=== PATIENT | male | born 1965 | race Caucasian/White ===

== ENCOUNTER 2024-09-09 14:07 | Inpatient (IN) | payer SELFPAY ==
[2024-09-09] VITALS (20 sets, daily range): BP systolic 99–153; BP diastolic 60–115; BMI 37.9
[2024-09-09 11:44] LABS: % Basophils 0.9 % (0-2); % Eosinophils 4.5 % (0-6); % Immature Granulocytes 0.4 % (0-0.5); % Lymphocytes 24.3 % (20.5-51.1); % Monocytes 7.2 % (1.7-9.3); % Neutrophils 62.7 % (42.2-75.2); Absolute Basophils 0.1 10^3/uL (0-0.2); Absolute Eosinophils 0.4 10^3/uL (0-0.7); Absolute Lymphocytes 1.9 10^3/uL (1.2-3.4); Absolute Monocytes 0.6 10^3/uL (0.1-0.6); Absolute Neutrophils 4.8 10^3/uL (1.4-6.5); Hematocrit 47.2 % (39.0-52.0); Hemoglobin 15.2 g/dL (13.0-18.0); Mean Corp Hgb Conc. 32.2 g/dL (33.0-37.0); Mean Corpuscular Hgb 28.5 pg (27.0-31.0); Mean Corpuscular Volume 88.6 fL (80.0-94.0); Mean Platelet Volume 11.1 fL (7.4-10.4); Nucleated Red Blood Cells % 0 % (-); Platelet Count 164 10^3/uL (130-400); Red Blood Cell Count 5.33 10^6/uL (4.70-6.10); Red Cell Dist. Width 13.7 % (11.5-14.5); White Blood Cell Count 7.7 10^3/uL (4.8-10.8)
[2024-09-09 11:50] LABS: ALT (SGPT) 26 U/L (0-50); AST (SGOT) 41 U/L (17-59); Albumin 4.1 g/dl (3.5-5.0); Alkaline Phosphatase 63 U/L (38-126); Blood Urea Nitrogen 16 mg/dl (9-20); Calcium 9.1 mg/dl (8.4-10.2); Carbon Dioxide 25 mmol/L (22-30); Chloride 102 mmol/L (98-107); Glucose 141 mg/dl (70-99); Potassium 4.4 mmol/L (3.5-5.1); Sodium 135 mmol/L (135-145); Total Bilirubin 1.5 mg/dl (0.2-1.3); Total Protein 6.2 g/dl (6.3-8.2); eGFR > 60.00
[2024-09-09 12:02] LABS: NT-proBNP 1830 pg/ml
--- NOTE | 2024-09-09 12:12 | ED.GENMED ---
History of Present Illness
General
Chief Complaint: Chest Pain
Source: patient
Time Seen by Provider: 09/09/24 12:12
Nursing documentation reviewed up to this point in time: agreed with
History of Present Illness
History of Present Illness:
59-year-old male presents emergency department due to chest pain with exertion. Ongoing for several months, but worse recently. He has not seen a learning and development administrator or sought medical care for this.
Past History
Past History
ED Past Medical History: Asthma, HTN and Psychiatric (Anxiety/depression)
ED Past Surgical History: Appendectomy, Orthopedic (left hand surgery) and Other (Hernia repair)
Social History
Tobacco: Non-smoker
Alcohol: Occasional
Drug: None
Personal:
Living: with family (Resides with his teenage son)
Employment: Employed
Family History
Family History: Hypertension and Other
Review of Systems
Review of Systems
Allergies reviewed?: Yes
All Other Systems: Not applicable
Constitutional: Reports no symptoms
EENT: Reports no symptoms
Respiratory: Reports trouble breathing
Cardiac: Reports chest pain
ABD/GI: Reports no symptoms
: Reports no symptoms
Musculoskeletal: Reports no symptoms
Skin: Reports no symptoms
Neurological: Reports no symptoms
Endocrine: Reports no symptoms
Hematologic/Lymphatic: Reports no symptoms
Psychiatric: Reports no symptoms
Phy Exam
Physical Exam
Physical Exam:
Physical Exam
General: no apparent distress, not acutely ill
Neck: supple. no meningeal signs. normal posterior pharynx
Heart: s1/s2 regular rate and rhythm, no murmur. equal radial
pulses.
HEENT: Pupils equal round reactive to light, EOMI
Lungs: no acute respiratory distress. clear bilaterally
Abdomen: normal bowel sounds. not tender. no CVAT
Neuro: alert and oriented. no focal neurological deficits cranial nerves II through XII intact
Skin: no rash
Psychiatric: well kept. interactive and cooperative
Extremities: Bilateral tibial edema. no calf tenderness. negative homans. good distal pulses
Scores
Heart Score for Chest Pain Patients
STEMI patient?: No
History: Highly Suspicious
ECG: Nonspecific Repolarization
Age: >45 - <65 years
Risk Factors: 1 or 2 Risk Factors
Troponin: >/= 3 x Normal Limit
Heart Score for Chest Pain Patients: 7
Heart Score Risk: 72.7 % MACE over next 6 weeks
Course
Orders/Labs/Results
Orders:
Orders
09/09/24 11:11
Electrocardiogram (*1) Urgent
Reason for Study: Chest Pain
EKG- Treatment ONCE
09/09/24 11:19
BNP [NT-proBNP] Urgent
Complete Blood Count/With Diff Urgent
Comprehensive Metabolic Panel Urgent
Troponin I Urgent
09/09/24 12:38
Aspirin Chewable [Low Strength Aspirin] 324 mg PO NOW STA
09/09/24 12:40
CR Chest Portable - 1 View Urgent
Comment:
Reason For Exam: chest pain
Reason Study Needs to be Portable: Patient Unstable
09/09/24 12:51
PTT Urgent
Comment: Obtain baseline before beginning heparin infusion if not already collected
Heparin 4,000 units IV NOW STA
Pharmacy Request to Place See Dose Instructions PO NOW STA
Discontinue all Active Warfarin orders?: Yes
Nursing to Place Non Medication Order As Directed
Physician Order: PTT 6 hours after initial start of Heparin infusion
09/09/24 13:00
Heparin 97894 Units/250 ml 25,000 units in 250 ml IV PER PROTOCOL
Weight to be used for heparin protocol in kilograms (kg):: 123.1
Protocol:: Cardiac Tx/Acute Coronary
PTT Goal Range to be used:: PTT 73 to 111 seconds
Order type:: Initial
INITIAL Infusion Dose (UNITS/KG/hr) & then follow protocol:: 15 units/kg/hr
Infusion Dose in UNITS/hr & then follow protocol (UNITS/hr):: 1,500
INFUSION RATE in mL/hr & then follow protocol (mL/hr):: 15
PTT less than or equal to 64 seconds:: Increase rate by 200 units/hr (+ 2 mL/hr)
PTT 64.1 to 72.9 seconds:: Increase rate by 100 units/hr (+ 1 mL/hr)
PTT 73 to 111 seconds:: Target Range. No change in rate.
PTT 111.1 to 130.9 seconds:: Decrease rate by 100 units/hr (- 1 mL/hr)
PTT 131 to 199.9 seconds:: HOLD for 1 hr. Then decrease rate by 200 units/hr (- 2 mL/hr)
PTT greater than or equal to 200 seconds:: HOLD for 2 hrs & Notify Provider. Then decrease by 200 units/hr (-
2 mL/hr)
Lab follow-up:: Each change, PTT q6h until 2 consecutive are therapeutic. Then PTT
daily.
Pharmacy Request to Place See Dose Instructions IV DIRECTED
Abnormal Lab Results
09/09/24
11:19
MCHC 32.2 L g/dL
(33.0-37.0)
MPV 11.1 H fL
(7.4-10.4)
Glucose 141 H mg/dl
(70-99)
Total Bilirubin 1.5 H mg/dl
(0.2-1.3)
Troponin I 1.460 H* ng/ml
Total Protein 6.2 L g/dl
(6.3-8.2)
09/09/24 11:19
09/09/24 11:19
Vital Signs
Initial and Last Documented VS:
Initial Vital Signs
Temp Pulse Resp BP Pulse Ox
98.3 F 106 20 139/101 98
09/09/24 11:05 09/09/24 11:05 09/09/24 11:05 09/09/24 11:05 09/09/24 11:05
Last Documented Vital Signs
Temp Pulse Resp BP Pulse Ox
98.3 F 106 24 136/115 96
09/09/24 11:05 09/09/24 12:23 09/09/24 12:23 09/09/24 12:23 09/09/24 12:31
MDM/Problems Addressed
Differential Diagnosis Includes:
NSTEMI, CHF
MDM/Problems Addressed:
59-year-old male with NSTEMI. Aspirin and heparin given. Discussed with Dr. Eliu Maldonado, who will see patient in ED. Admit to hospitalist.
Chronic conditions affecting care: HTN and Asthma
Acute Exacerbation and/or Progression of Chronic Illness: HTN
*Pulse Oximetry
Patient hypoxic: no
*EKG
Interpreted by ED Provider?: Yes
EKG Intrepretation Date: 09/09/24
EKG Intrepretation Time: 11:14
Interpretation: abnormal
*[employer] Fire Direction Specialist Interpretation
Rate: tachycardiac
Interpretation: abnormal
Heart Rate: 105
Rhythm: sinus tachycardia
*Critical Care Note
Total Time (30-74mins, 75-104mins- exclusive of procedures): 30
comment:
Critical care statement: A total of 30 minutes of critical care time was provided for this patient. This includes management of unstable vital signs, evaluation of the patient at bedside, reviewing the patient's pertinent medical records, discussion
with consultants, review of old EKGs and review of pertinent medical records. This time with separate from time utilized to perform the aforementioned documented procedures
Data Reviewed
Review of Other/Old Records Reveals: Testing (Echocardiogram 01/22/2018 LVEF 55 to 60%, trace tricuspid regurgitation, trace mitral regurgitation)
Source: records
Patient Management
Social determinants of health affecting care: Living situation and Financial situation
Discussion with other providers: Hospitalist and Extension Service Agent (cardiology)
Escalation/DeEscalation of care consider admission/obs:
admit indicated
ED Attending Note
-
Portions of this chart may have been created with voice recognition software.� Occasional wrong word or��sound alike� substitutions may have occurred due to the inherent limitations of voice recognition software.
Discharge Plan
Departure
Patient Disposition: Admit
Date of Disposition: 09/09/24
Time of Disposition: 12:54
Admit to: IVU
Presentation/result/management discussed w/ accepting MD/DO: Hospitalist
Patient with high blood pressure during this ER visit?: Yes
Condition: Fair
Discharge Problem:
Acute non-ST elevation myocardial infarction (NSTEMI)
Prescriptions:
No Action
No Current Medications
0
Interventions
Interventions:
*Risk Screen - Suicide Last Done: 09/09/24 11:05
*Neglect/Abuse Screening Last Done: 09/09/24 11:05
*ED- Fall Risk Assessment Last Done: 09/09/24 12:33
*ED COVID-19 Vaccine History Last Done: 09/09/24 11:05
ED- Cardiac Assessment Last Done: 09/09/24 12:24
Discharge Date and Time
Print Language: SERBIAN
[2024-09-09] MEDS: LOW STRENGTH ASPIRIN 324 MG PO (12:41)
[2024-09-09] MEDS: HEPARIN 4000 UNITS IV (12:59)
--- NOTE | 2024-09-09 13:04 | HPS.HSE ---
Family Physician
-
Family Physician: Anthony Mcqueen
Chief Complaint
-
Chest pressure x 6 months, bilateral leg edema times years
History of Present Illness
59-year-old male complaining of chest pain since April 6 months including dyspnea on exertion for the past month. He describes the pain as a sharp heavy pressure sitting on his chest. He reports he has gained 50 pounds since the fall he states
sometimes when he drinks a few ounces of red wine the pain goes away. He reports he is very stressed about being unemployed for such a long time he has been getting contracts here and there and then they have been subsiding. He is tearful during
exam. He was treated in the past for anxiety with Zoloft but he has not been on medications since 2013 due to no health insurance. He was seen by his PCP today and was telling him about his symptoms. He also reports that occurs on exertion and at
ret.he has had lower extremity edema since before 2013 with history of bilateral saphenous vein ablations. He has very strong family history of CAD mother father 2 sisters and brother heart attacks in their 50s and 60s. He was referred to the ER
for evaluation where he was found to have NSTEMI with troponin elevation of 1.460. Patient has past medical history of HTN, HLD, asthma, GERD, anxiety, impaired vision, class I obesity.
Medical History
Past Medical History
Past Medical History: Reports Other
Additional Past Medical History:
HTN
HLD
asthma
GERD
anxiety
impaired vision
Chronic bilateral leg edema
class I obesity
Past Surgical History: Reports Other
Additional Past Surgical History:
Left hand surgery
Deviated septum
Hernia repair
[place] teeth extraction
Vein surgery
Social History
Tobacco: Non-smoker
Alcohol: Daily (4 ounce wine daily)
Drug: None
Personal:
Living: With Family (Adult son lives with him)
Employment: Not Employed
Family History
Family History: CAD (Father, brother, sister, other sister other brother [place] 50 to 60s) and Other (1 brother history of [place] and Parkinson's mother from CVA after COVID-vaccine father age 97 [place])
Allergies / Home Medications
Allergies reflects when Allergies were last updated in [facility].
Home Medications with original date entered in [facility]
Allergy/Medication List:
Allergies
Allergy/AdvReac Type Severity Reaction Status Date / Time
Penicillins Allergy Unknown Verified 09/09/24 11:10
Home Medications
Advil PM 2 tab PO HS PRN isnsomnia 09/09/24
Benadryl 25 mg PO HS PRN insomnia 09/09/24
Review of Systems
-
History Source: Patient
A 12 point ROS was completed and negative except as noted: Yes
Constitutional: Reports Weight Gain (50 pounds the past 6 months); Denies Fever or Chills
EENT: Denies Sore Throat or Runny Nose
Respiratory: Denies Cough or Trouble Breathing
Cardiac: Reports Chest Pain; Denies Diaphoresis, Palpitations or Syncope
Abdomen/GI: Denies Abdominal Pain, Nausea, Vomiting, Diarrhea, Constipated or Bloody Stools
: Denies Dysuria, Frequency or Flank Pain
Musculoskeletal: Reports Edema (Bilateral nonpitting +3 edema lower legs); Denies Joint Pain
Skin: Denies Itching or Rash
Neurological: Denies Dizzy or Headache
Endocrine: Reports No Symptoms
Hematologic/Lymphatic: Reports No Symptoms
Psych: Reports Anxiety (Over no job, no healthcare)
Physical Exam
Vital Signs
Vital Signs
Temp Pulse Resp BP Pulse Ox
98.3 F 106 24 136/115 96
09/09/24 11:05 09/09/24 12:23 09/09/24 12:23 09/09/24 12:23 09/09/24 12:31
Physical Exam
General: Comfortable, Conversant and Pain (Chest pain 07/11); No Fever or Chills
HEENT: NormoCephalic, Anicteric, Moist mucous membranes, PERRLA, [place] Conjunctivae, No Ptosis and Neck Nontender
Respiratory: Clear; No Wheezes, Rales or Rhonchi
Cardiac: S1/S2, Regular Rhythm and Peripheral Edema (Bilateral +3 nonpitting); No Murmur, Rub or Gallop
Breast: Deferred by me
GI: Soft, Non Tender, Non Distended, Normal Bowel Sounds and No Hepatosplenomegaly
Rectal: Deferred by Provider
Genito-urinary: Deferred by me
Musculoskeletal: No Clubbing, No Cyanosis, Edema, Left Lower Extremity (+3 nonpitting) and Edema, Right Lower Extremity (+3 nonpitting); No Edema, Left Upper Extremity or Edema, Right Upper Extremity
Skin: Warm and Dry; No Rash or Jaundice
Neuro: AO x 3, No Motor Deficits, Nonfocal/grossly intact, Cranial Nerves Intact and No Sensory Deficits; No Slurred Speech, Facial Droop, Tremors or Sedated
Psych: Calm
Laboratory Results
-
09/09/24 11:19
09/09/24 11:19
Laboratory Results
Total Bilirubin 1.5 mg/dl (0.2-1.3) H 09/09/24 11:19
AST 41 U/L (17-59) 09/09/24 11:19
ALT 26 U/L (0-50) 09/09/24 11:19
Alkaline Phosphatase 63 U/L (38-126) 09/09/24 11:19
Troponin I 1.460 ng/ml H* 09/09/24 11:19
Data Reviewed
-
Diagnostic Radiology: Report Reviewed by me
Lab Data: Labs Reviewed by me
Impression/Plan
-
Impression/plan:
Admit to IVU
#NSTEMI
Troponin 1.460 will trend
-Consult [facility] cardiology
-IV heparin bolus plus drip
-Aspirin 324 mg given in ER, continue aspirin 81 mg daily
-N.p.o. for cardiac cath today
-2D echo
-Follow EKGs
-Lipid profile, HgbA1c
-Lasix 20 mg IV
-Follow CBC, CMP
-PT/OT/outsole caser consult
CXR:No radiographic evidence of acute cardiopulmonary abnormality.
Mild cardiomegaly.
#Hypertension�uncontrolled
BP 136/115
-Lasix 20 mg IV single dose now
#Acute on chronic anxiety
Reports used to take Zoloft back in 2013
-Major stressors loss of job, denies current suicidal ideation
-IV Ativan as needed
# HLD
-Check lipid profile
#GERD
-No current meds
#Asthma-no acute exacerbation
#Class I obesity�BMI 37.9
Affects all aspects of care
Weight loss recommended
#Insomnia
Patient is taking Benadryl 75 mg plus Advil PM 2 tablets 400/75 mg total dose every night
DVT prophylaxis
IV heparin drip
Full code
[2024-09-09] MEDS: HEPARIN 25000 UNITS/250 ML IV ×2 (13:20→21:28)
--- NOTE | 2024-09-09 13:49 | W.PN.UPDATE ---
Update Note
Progress Note Update
This is an addendum to the H&P written by Tigist Ayala on 09/09/2024. Patient seen and examined independently with FOOD CONCESSION MANAGER.
59-year-old male past medical history of chronic lower extremity swelling, hypertension, hyperlipidemia, GERD, anxiety, asthma, arthritis/lumbar disc disease, presenting with chest pain with exertion ongoing for several months at rest but worsening
over the past few days.
Chronic lower extremity edema for several years without improvement with bilateral venous ablations. Has gained significant weight.
Patient tachycardic heart rate of 106.
EKG shows sinus tachycardia with occasional PVCs, troponin of 1.46. Cardiac BNP of 1800. Chest x-ray shows cardiomegaly without acute process.
Presentation consistent with NSTEMI. Likely some element of diastolic heart failure.
Check A1c and lipid panel. Aspirin. Heparin drip. Cardiology consulted. NPO for likely cath today. Will give 20 IV Lasix. Ativan for anxiety.
[2024-09-09 13:52] LABS: APTT > 200 Sec (23.4-35.0)
[2024-09-09] MEDS: NITROSTAT (SUBLINGUAL) 0.4 MG SL (14:03)
--- NOTE | 2024-09-09 14:06 | CON.CAR ---
Consultation
Consultation Request
Date/Time Consultation Requested: 09/10/23
Date/Time Consultation Performed: 09/10/23 1330
Requesting Provider: Hospitalist
Performing Provider: Dr. Amador
Reason for Consultation: Chest discomfort abnormal troponin
Medical History
-
History of Present Illness:
59-year-old male with no prior cardiac history who presents with chest discomfort. Patient reports that he had exertional shortness of breath and exertional chest discomfort for months. Symptoms have become worse over the past month in particular
over the last couple weeks. He is now has noticed that when he just carries in some groceries that he will have shortness of breath and some chest tightness that we will start to feel like an elephant sitting on his chest and then will become more
intense and more sharp. Symptoms are relieved with rest. He sometimes just has to stop what he is doing and have his son carrying the rest of the groceries. Yesterday he had an episode of chest discomfort after exertion similar to what was
described above. He then states if he has a small glass of wine it will help it go away after about 5 minutes. He did not have any prolonged episodes. He called his PCP and was directed to go to the ER he eventually saw his primary care physician
today and again was directed to go to the emergency department. He had some chest discomfort on his walk into the emergency department which then improved while resting in the ER. He reports having some low-grade chest sensation currently while
sitting in bed no current complaints of shortness of breath. Denies having history of hypertension hypercholesterolemia or smoking. Family history is positive for coronary artery disease. ECG without acute ischemic changes first troponin 1.49
Past Medical History
Past Medical History: Other (Eczema)
Social History
Tobacco: Non-Smoker
Living: With Family (Lives with son)
Family History
Family History: CAD
Allergies / Home Medications
Allergy/AdvReac Type Severity Reaction Status Date / Time
Penicillins Allergy Unknown Verified 09/09/24 11:10
�Medication �Instructions �Recorded �Confirmed �Type
Advil PM 2 tab PO HS PRN isnsomnia 09/09/24 09/09/24 History
Benadryl 25 mg PO HS PRN insomnia 09/09/24 09/09/24 History
Review of Systems
-
All other systems: Negative unless noted
Physical Exam
Vital Signs
Temp Pulse Resp BP Pulse Ox
98.3 F 121 18 147/88 96
09/09/24 11:05 09/09/24 13:45 09/09/24 13:30 09/09/24 14:03 09/09/24 13:15
Lab Results
09/09/24 11:19
09/09/24 11:19
Troponin I 1.460 ng/ml H* 09/09/24 11:19
Mpo-S-Tmblswymwua Pept 1830 pg/ml 09/09/24 11:19
Physical Exam
General: Well Nourished
HEENT: Anicteric
Cardiac: Regular Rhythm
GI: Soft
Musculoskeletal: No Clubbing
Skin: Warm
Neuro: Alert
Hematologic/Lymphatic: No Lymphadenopathy
Impression / Plan
-
NSTEMI
-Aspirin
-Heparin
-Sublingual nitro
-IV nitro
-Recommend cardiac catheterization. Procedure reviewed with patient. He is in agreement.
.
Shortness of breath. Consistent with exertional angina
-Echo
.
Social history. Patient very concerned with cost. He says he is broke Will need case management consult
Data Reviewed
-
EKG: Report Reviewed by me
Radiology: Report Reviewed by me
Medical Tests (Nuc Med, Echo etc): Report Reviewed by me
Labs: Labs Reviewed by me
[2024-09-09] MEDS: LASIX 20 MG IV (14:08)
[2024-09-09] MEDS: NITROGLYCERIN PREMIX 250 IV (14:19)
[2024-09-09 15:07] LABS: HDL Cholesterol 45 mg/dl; LDL Cholesterol, Calculated 190 mg/dl; Magnesium 2.1 mg/dl (1.6-2.3); Total Cholesterol 276 mg/dl (50-199); Triglyceride 205 mg/dl (10-149); Very Low Density Lipoprotein 41 mg/dl (0-30)
--- NOTE | 2024-09-09 15:41 | ITS.CL.PN ---
Leg Breaker - Procedure Note
Procedure
Procedure Note:
CARDIAC CATHETERIZATION REPORT
Date of Procedure: 09/09/2024
Referring: Dr. Yao Amador MD
Indication: NSTEMI
PROCEDURE(S)
1. left heart catheterization
2. coronary angiography
ACCESS: 6F right radial artery (closure: radial band)
CATHETERS
1. 6F JR4
2. 6F JL3.5
MODERATE SEDATION: 40 minutes of moderate sedation was utilized. An independent director medical writing was present to assist with and help manage the patient's level of consciousness and physiologic status.
ULTRASOUND GUIDED VASCULAR ACCESS (right radial artery): Ultrasound was utilized for vascular access. The vessel was visualized under ultrasound and noted to be patent. An image of the vessel was stored permanently in the patient's medical record.
Under direct ultrasound guidance, vascular access was obtained using a modified Seldinger technique and a 6 Frisian sheath was placed.
HEMODYNAMIC DATA
LV 113/9 (EDP 13) mmHg
AO 109/84 (mean 93) mmHg
CORONARY ANGIOGRAPHY
Dominance: right
LM: 80% distal shaft focal stenosis.
LAD: Large vessel giving rise to a large branching D1 and wrapping around the apex. There are serial 40% stenoses in the mid vessel and a long 90% stenosis in the distal vessel. There is diffuse moderate disease throughout the lower branch of the
D1.
LCx: Moderate caliber vessel giving rise to a moderate caliber branching OM1, small LPL1, and moderate caliber LPL2. There is a 40% stenosis in the OM1 before the branch. There is otherwise mild non-obstructive disease.
RCA: Proximal MACHINE SNELLER. The RPDA fills via [id number] collaterals from the apical LAD.
RADIATION: dose 734 mGy; DAP 61.9 gy*cm2; fluoroscopy time 3.3 min
CONCLUSIONS
1. severe multivessel coronary artery disease as described with RCA MACHINE SNELLER and high-grade left main stenosis
2. mildly elevated LV filling pressure and no aortic stenosis
RECOMMENDATIONS
1. expectant management after cardiac catheterization via right radial approach
2. check TTE, lipids, A1c
3. CT surgery consult for coronary artery bypass grafting with PALACIO-LAD and additional grafts to the D1, OM1, and RPDA.
Signed: Rony Wallace MD, PhD
--- NOTE | 2024-09-09 16:40 | CM ---
Chart reviewed. Patient is currently unemployed, lives with his son in a [address], 3 [address], 0 DME. [employer] notified. Plan is for the patient to return home. CM to follow
--- NOTE | 2024-09-09 17:05 | CONSULT.CT ---
Consultation
-
Date/Time Consultation Requested: 09/09/24
Date/Time Consultation Performed: 09/09/24
Requesting Provider: Dalton Wallace
Performing Provider: Jazmin ESCOBAR/Levy Augustine MD
Reason for Consultation: NSTEMI/Left main, multivessel coronary artery disease
Patient History
Physicians
Family Physician: Anthony Mcqueen
Outpatient Price Economist: none prior to admission
Inpatient Price Economist: Dalton Wallace
History of Present Illness
59-year-old male with no prior cardiac history admitted to [facility] on 09/09/2024 with report of exertional chest pressure that has escalated in frequency and intensity since April 2024. Patient also developed shortness of
breath over the past month. Symptoms are relieved with rest and 'a little red wine.' Patient has been unemployed for the past 6 months and has gained 15 pounds during this time. He had not sought medical attention due to concern of cost. He is
quite upset about loss of income. Patient has a strong family history for coronary artery disease (father and siblings with [facility]). Ruled in for NSTEMI (first troponin 1.49). Patient was taken for left heart catheterization which reported
significant left main disease and occluded right coronary artery. He is currently pain-free resting in bed and will resume IV heparin and nitro later tonight.
Pertinent negatives: Denies CVA/TIA, hepatitis, chest radiation or surgery, dysphagia
Past Medical History
Past Medical History: Asthma (Childhood), GERD, HTN, Hypercholesterolemia, Psychiatric (Situational anxiety/depression over job loss) and Other (Left shoulder impingement, herniated lumbar disc, chronic bilateral lower extremity edema, colon polyps,
fracture proximal left fifth phalanx-repaired with screws)
Past Surgical History
Past Surgical History: Appendectomy and Other (Xanthoma removal under left eye, umbilical hernia repair, bilateral saphenous vein ablation)
Family History
Mother: Cause of (CVA)
Family Medical History: CAD
Social History
Alcohol: Occasional
Drug: None
Tobacco: Non-Smoker
Personal:
Living: With Family (Adult son age 23)
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
Allergies
Allergy/AdvReac Type Severity Reaction Status Date / Time
Penicillins Allergy Unknown Verified 09/09/24 11:10
Home Medications
�Medication �Instructions �Recorded �Confirmed �Type
acetaminophen 500 mg tablet 1,000 mg PO Q6HPRN PRN MILD PAIN 09/09/24 09/09/24 History
bisacodyl 5 mg tablet 5 mg PO HS 09/09/24 09/09/24 History
diphenhydramine HCl 25 mg capsule 25 mg PO HSPRN PRN ITCHING 09/09/24 09/09/24 History
(Benadryl)
ibuprofen 200 mg tablet (Advil) 600 mg PO Q6HPRN PRN HEADACHE 09/09/24 09/09/24 History
ibuprofen 200 mg-diphenhydramine 2 cap PO HSPRN PRN SLEEP 09/09/24 09/09/24 History
HCl 25 mg capsule (Advil PM
Liqui-Gels)
Review of Systems
-
History Source: Patient
General: Reports Weight Gain (15 pound weight gain in past 3 months)
HEENT: Reports Other (Wears corrective lenses)
Respiratory: Reports SOB (With exertion)
Cardiac: Reports Chest Pain (With exertion) and Edema (Chronic bilateral lower extremity edema)
Abdomen/GI: Reports Reflux
: Reports No Symptoms
Musculoskeletal: Reports Myalgias
Skin: Reports No Symptoms
Neurological: Reports No Symptoms
Vascular: Reports No Symptoms
Physical Exam
Vital Signs
Temp 98.6 F 09/09/24 16:23
Temp route: Oral 09/09/24 16:23
Pulse 113 09/09/24 14:08
Resp Rate 18 09/09/24 16:23
Blood pressure 147/88 09/09/24 14:08
Blood pressure extremity used: Left upper arm 09/09/24 16:23
Position: Lying 09/09/24 16:23
MAP (cuff-Tj Monitor) 107 09/09/24 13:00
SaO2 94 09/09/24 16:23
Oxygen Mode of Delivery Room air 09/09/24 16:23
Acceptable pain level during hospitalization? 1 09/09/24 11:05
Can the patient verbally communicate their pain? Yes 09/09/24 14:03
Pain scale ratin 09/09/24 14:03
Actual Weight 123.1 kg 09/09/24 12:22
Body Mass Index (BMI) 37.9 09/09/24 12:22
Labs
09/09/24 11:19
09/09/24 11:19
APTT > 200 Sec (23.4-35.0) H* 09/09/24 13:09
Troponin I 1.460 ng/ml H* 09/09/24 11:19
Exn-S-Tgzizajdmov Pept 1830 pg/ml 09/09/24 11:19
Diagnostic Studies
Left heart catheterization via right radial artery access (09/09/[address] Brewer):
LM: 80% distal shaft focal stenosis.
LAD: Large vessel giving rise to a large branching D1 and wrapping around the apex. There are serial 40% stenoses in the mid vessel and a long 90% stenosis in the distal vessel. There is diffuse moderate disease throughout the lower branch of the
D1.
LCx: Moderate caliber vessel giving rise to a moderate caliber branching OM1, small LPL1, and moderate caliber LPL2. There is a 40% stenosis in the OM1 before the branch. There is otherwise mild non-obstructive disease.
RCA: Proximal SYSTEMS INTEGRATION MANAGER. The RPDA fills via cpxo-wg-[id number] collaterals from the apical LAD.
Exam
General: Well Nourished and Comfortable
HEENT: Normocephalic, Anicteric, Moist Mucous Membranes, Atraumatic and PERRLA
Respiratory: Clear
Cardiac: S1/S2, Regular Rhythm and Gallop
GI: Soft, Non Tender and Normal Bowel Sounds
Skin: Warm and Dry
Neuro: AO x 3, No Motor Deficits and Nonfocal/Grossly Intact
Extremities: Lower Level Edema (B/L +1-2 ankle edema) and Pulses (+2/4 B/L DP pulses)
Lymph: No Lymphadenopathy
Psych: Other (tearful)
Assessment / Plan
-
59-year-old male admitted with escalating frequency of exertional chest pain shortness of breath. Ruled in for NSTEMI and found to have left main/triple-vessel coronary disease
- IV heparin and nitroglycerin to be resumed per cardiology
- Surgeon to review imaging and discuss risk-benefit of CABG with patient
-Will need echocardiogram to assess LVEF
-Will need social work consult to assist with medical finances
- Beginning preop diagnostic workup
Data Reviewed
-
EKG: Report Reviewed by me and Discussed with Physician
Epic Application Coordinator: Report Reviewed by me and Discussed with Physician
Radiology: Report Reviewed by me and Discussed with Physician
Labs: Labs Reviewed by me and Discussed with Physician
[2024-09-09] MEDS: LIPITOR 80 MG PO (17:29)
--- NOTE | 2024-09-09 18:00 | PTCARENOTE ---
Pt received post cath at 1615. Right rad band intact and site WNL. Pt denies any chest pain or sob. Room air sat 98%. IV Nitro infusing at 5MCG. Pt c/o of headache, medicated with Tylenol 650mg po as ordered.
[2024-09-09 18:09] LABS: TSH Reflex To Free T4 1.12 uIU/ml (0.47-4.68)
[2024-09-09] MEDS: TYLENOL 650 MG PO ×2 (19:06→23:38)
[2024-09-09 19:42] LABS: Urine Albumin Negative (Neg - Trace); Urine Bilirubin Negative (Negative); Urine Character Clear (Clear); Urine Color Yellow; Urine Glucose Negative (Negative); Urine Ketone Negative (Negative); Urine Leukocyte Negative (Negative); Urine Nitrite Negative (Negative); Urine Occult Blood Negative (Negative); Urine Urobilinogen Negative (Neg - 1+)
[2024-09-09 20:57] LABS: APTT 25.1 Sec (23.4-35.0)
[2024-09-09] MEDS: MELATONIN 5 MG PO (21:27)
[2024-09-09] MEDS: ATIVAN 1 MG IV (21:28)
[2024-09-09] MEDS: NSS (PRESERVATIVE FREE) 0.5 ML IV (21:37)
--- NOTE | 2024-09-09 21:55 | PTCARENOTE ---
Received patient at change of shift. A&Ox3. Sinus Tach 100s-110s-- other vitals stable. Right radial site clean, dry and intact. R-band removed. Nitro gtt 5 mL/hr and heparin gtt running @ 1500 units/hr through right AC. Condom cath removed per
patient request. Very difficult too remove-- patient was very unhappy. Used adhesive remover, warm washcloth, scissors to cut hair. Apologized to patient, and he was very understanding. Discussed plan of care for rest of evening. Verbalized
understanding. Call townsend within reach.
[2024-09-09] MEDS: LOPRESSOR 12.5 MG PO (23:39)
[2024-09-10] VITALS (34 sets, daily range): BP systolic 100–152; BP diastolic 63–109; BMI 36.8
[2024-09-10] MEDS: ROXICODONE 2.5 MG PO ×3 (03:23→17:45)
[2024-09-10 03:30] LABS: Hematocrit 39.5 % (39.0-52.0); Hemoglobin 13.1 g/dL (13.0-18.0); Mean Corp Hgb Conc. 33.2 g/dL (33.0-37.0); Mean Corpuscular Hgb 28.7 pg (27.0-31.0); Mean Corpuscular Volume 86.6 fL (80.0-94.0); Mean Platelet Volume 11.5 fL (7.4-10.4); Platelet Count 147 10^3/uL (130-400); Red Blood Cell Count 4.56 10^6/uL (4.70-6.10); Red Cell Dist. Width 13.7 % (11.5-14.5); White Blood Cell Count 7.3 10^3/uL (4.8-10.8)
[2024-09-10 03:41] LABS: APTT 55.8 Sec (23.4-35.0)
[2024-09-10 04:04] LABS: ALT (SGPT) 20 U/L (0-50); AST (SGOT) 28 U/L (17-59); Albumin 3.1 g/dl (3.5-5.0); Alkaline Phosphatase 53 U/L (38-126); Blood Urea Nitrogen 16 mg/dl (9-20); Calcium 8.6 mg/dl (8.4-10.2); Carbon Dioxide 24 mmol/L (22-30); Chloride 104 mmol/L (98-107); Estimated Creatinine Clearance 115 ml/min; Glucose 130 mg/dl (70-99); Magnesium 2.2 mg/dl (1.6-2.3); Potassium 3.9 mmol/L (3.5-5.1); Sodium 133 mmol/L (135-145); Total Protein 4.9 g/dl (6.3-8.2); eGFR > 60.00
--- NOTE | 2024-09-10 04:08 | PTCARENOTE ---
Pt c/o feeling SOB. Informed BOUBACAR Ta PA, and she came down to assess. Pt was placed on 2L O2, and prescribed Roxicodone for pain-- see AUG.
[2024-09-10 04:48] LABS: Hepatitis C Antibody Negative (Negative); Vitamin B12 300 pg/ml (239-931)
[2024-09-10] MEDS: LOW STRENGTH ASPIRIN 81 MG PO (07:48)
[2024-09-10] MEDS: LOPRESSOR 12.5 MG PO ×2 (07:48→19:44)
[2024-09-10] MEDS: TYLENOL 650 MG PO ×3 (07:57→19:45)
--- NOTE | 2024-09-10 09:06 | W.PN.CD ---
Today's Communication / Plan
-
check ECG
continue nitro gtt
await CT surgical plan
continue heparin ggt
continue intensive monitoring
Impression / Plan
-
NSTEMI
-Trop peak 2.080
-Cath with 80% LMCA and RCA AUTOMOBILE BRAKE BONDER, await CT surgery input for Inpt CAB.
-Continue asa/statin/bb
-continue IV heparin with intensive monitoring of labs
-echo today
Hyperlipidemia: LDL 190, likely familial?
-high dose statin
Morbid obesity: will need weight loss
Social history. Patient very concerned with cost. He says he is broke, lost his job and has no insurance. CM involved.
High risk situation with NSTEMI and left main Cor disease, mvd.
Subjective:
He has all over body pain, ntg gtt incresed for cp but this is resolved. He has a headache, did receive tylenol
Data:
Cath 08/13/24:
HEMODYNAMIC DATA
LV 113/9 (EDP 13) mmHg
AO 109/84 (mean 93) mmHg
CORONARY ANGIOGRAPHY
Dominance: right
LM: 80% distal shaft focal stenosis.
LAD: Large vessel giving rise to a large branching D1 and wrapping around the apex. There are serial 40% stenoses in the mid vessel and a long 90% stenosis in the distal vessel. There is diffuse moderate disease throughout the lower branch of the
D1.
LCx: Moderate caliber vessel giving rise to a moderate caliber branching OM1, small LPL1, and moderate caliber LPL2. There is a 40% stenosis in the OM1 before the branch. There is otherwise mild non-obstructive disease.
RCA: Proximal AUTOMOBILE BRAKE BONDER. The RPDA fills via [id number]-pi-[id number] collaterals from the apical LAD.
CONCLUSIONS
1. severe multivessel coronary artery disease as described with RCA AUTOMOBILE BRAKE BONDER and high-grade left main stenosis
2. mildly elevated LV filling pressure and no aortic stenosis
Physical Exam
Vital Signs/Labs
Vital Signs
Temp Pulse Resp BP Pulse Ox
98.3 F 89 18 103/65 95
09/10/24 07:55 09/10/24 02:54 09/10/24 07:55 09/10/24 02:54 09/10/24 07:55
09/09/24 09/10/24 09/11/24
06:59 06:59 06:59
Actual Weight 119.7 kg
09/10/24 03:05
09/10/24 03:05
APTT 55.8 Sec (23.4-35.0) H 09/10/24 03:05
Magnesium 2.2 mg/dl (1.6-2.3) 09/10/24 03:05
Triglycerides 205 mg/dl (10-149) H 09/09/24 11:19
LDL Cholesterol, Calc 190 mg/dl 09/09/24 11:19
VLDL Cholesterol, Calc 41 mg/dl (0-30) H 09/09/24 11:19
HDL Cholesterol 45 mg/dl 09/09/24 11:19
09/09/24
11:19
Eql-C-Owwcrqgjdou Pept 1830
LAB Results
09/09/24 09/09/24 09/09/24
11:19 14:30 20:38
Troponin I 1.460 H* Cancelled 2.080 H*
09/10/24
03:05
Troponin I 2.060 H*
Physical Exam
Constitutional: No acute distress
Cardiovascular: Rhythm & rate is regular, Pedal edema is absent, JVD pressure is normal, Systolic murmur absent and Diastolic murmur absent
Respiratory: Respiratory effort normal, Lungs clear to auscul., Wheeze Absent, Crackles Absent and Rhonchi Absent
Neuro/Psych: AO x 3
Data Reviewed
-
Date of Service: September 10, 2024
Medical Decision Making: Review of Case with other Provider (Review with CTNP, await CT surgical full evaluation, nurse Yane at the bedside)
[2024-09-10 09:21] LABS: Glycohemoglobin (HgbA1c) 6.3 % (4.0-5.6)
[2024-09-10 11:05] LABS: APTT 66.6 Sec (23.4-35.0)
--- NOTE | 2024-09-10 11:55 | W.PN.HOSP.TC ---
Today's Communication/Plan
-
further mgmt as per card and CTS
Assessment / Plan
Assessment / Plan
59yo M with PMHX of DJD came with chest discomfort, managed for NSTEMI, had cardiac cath on 09/09/24 with severe multivessel coronary artery disease as described with RCA HYSTER MACHINE OPERATOR and high-grade left main stenosis, recommended for CABG
A/P
#chest pain 2/2 NSTEMI
ASA, heparin drip, nitro drip
s/p cath on 09/09/24 - recommended for CABG, CTS to follow
Echo with EF 32%, grade 2 diastolic dysfunction, mild biventricular dilation and mild pulmonary HTN
TSH WNL
CT chest with cardiomegaly, no signs of pneumonia
#HLD
LDL 190
concern for familial
high dose statin
#Obesity
BMI 36.8
Advise to decrease calorie intake
#PreDM
HgbA1c 6.3%
Low carb diet and weight loss advised
#Social problem
has no medical coverage
CM consult
DVT ppx on SCDs
Fukll code
I have spent at least 36min reviewing chart, test results, communication with consultants and direct patient care
Anticipated Discharge: > 48 hours
Subjective/Interval History
-
Date of Service: September 10, 2024
Objective Data
-
Labs:
Laboratory Results
09/10/24 09/10/24
03:05 10:39
WBC 7.3
Hgb 13.1
Hct 39.5
Plt Count 147
APTT 55.8 H 66.6 H
Sodium 133 L
Potassium 3.9
Chloride 104
Carbon Dioxide 24
BUN 16
Creatinine 0.9
Glucose 130 H
Calcium 8.6
Total Bilirubin 1.0
AST 28
ALT 20
Alkaline Phosphatase 53
Vital Signs:
Vital Signs
Temp Pulse Resp BP Pulse Ox
98.3 F 93 18 120/89 95
09/10/24 07:55 09/10/24 10:45 09/10/24 07:55 09/10/24 10:42 09/10/24 07:55
I&O
09/09/24 09/10/24 09/11/24
06:59 06:59 06:59
Output Total 800 / 800
Balance -800 / -800
Review of Systems
-
History Source: Patient
All other systems: Reviewed and negative
Physical Exam
-
General: No Apparent Distress
HEENT: Normocephalic
Respiratory: Clear to Auscultation
GI: Soft, Nontender, Nondistended and Normal Bowel Sounds
Musculoskeletal: No Clubbing, No Cyanosis and No Edema
Neuro: Awake, Alert, Oriented and AO x 3
Psych: Calm
[2024-09-10] MEDS: HEPARIN 25000 UNITS/250 ML IV (13:39)
--- NOTE | 2024-09-10 14:21 | W.PN.UPDATE ---
Update Note
Progress Note Update
CARDIAC SURGERY ATTENDING:
I had a long discussion with Mr. Fletcher Sims at his bedside this afternoon. His son was present during our discussions. We reviewed his coronary pathology and discussed the proposed operative interventions. We reviewed the
periprocedural risks (including, but not limited to, , stroke, MN, arrhythmia, PNA, SERENA/F, bleeding, and infection) and discussed the expected in-hospital postprocedural course. We also reviewed the expected outpatient surgical recovery. All
questions were answered to the best of my abilities. The patient is agreeable to proceed. I have tentatively scheduled him for operative intervention tomorrow 09/11/2024. I plan TRE to LAD, left radial artery to OM1 upper branch, greater
saphenous vein to D1, and potential greater saphenous vein to RPDA (will require intraoperative assessment). I have personally reviewed all of his preoperative studies. His LVEF is reduced at approximately 30% and his RV is enlarged with normal
function. He has no significant valvular heart disease. Despite his reported history of bilateral greater saphenous vein ablations, on vein mapping, his greater saphenous veins appear usable bilaterally. If his greater saphenous veins appear
different operatively then as described on vein mapping, we will proceed with CABG x 2 with grafts to his LAD and OM1.
Thank you for the opportunity participate in the care of this kind gentleman.
Please call with any questions or concerns.
Levy Augustine MD
[phone]
--- NOTE | 2024-09-10 14:57 | CM ---
spoke to pt and son in room, he is prev indep, lives in a townhouse with his 23 yr old son. he does not have any health insurance, [facility] was notified. unsure if pt will qualify D/T over income. he tells me he has a 1099 he filed last yr. we
discussed preop CABG teaching including sternal and driving restrictions. pts son is very supportive. he has the cabg educ book. cm role explained and all questions answered.
--- NOTE | 2024-09-10 15:32 | W.PN.UPDATE ---
Update Note
Progress Note Update
STS RISK SCORE
Procedure Type:�Isolated CABG
Perioperative Outcome Estimate %
Operative Mortality 1.44%
Morbidity & Mortality 8.09%
Stroke 0.925%
Renal Failure 1.69%
Reoperation 2.52%
Prolonged Ventilation 4.84%
Deep Sternal Wound Infection 0.222%
Long Hospital Stay (>14 days) 3.46%
Short Hospital Stay (<6 days)* 48.8%
Clinical Summary
Planned Surgery: Isolated CABG, Urgent, First cardiovascular surgery
Demographics: 59 year old, White, male, 123kg, 180cm, BMI: 38 kg/m�
Lab Values: Creatinine: 0.9 mg/dL, Hematocrit: 39.5%, WBC Count: 7.3 10�/�L, Platelet Count: 157620 cells/�L
Substance Abuse: Never smoker, Alcohol use: 2-7 drinks/week
Risk Factors / Comorbidities: Hypertension, Family Hx of CAD
Cardiac Status: Acute heart failure, NYHA Class II, Ejection Fraction = 32%
Coronary Artery Disease: 3 vessels diseased, Non-ST Elevation ND, ND: 1 to 7 Days
Valve Disease: Mild MR, Trivial/Trace TR
[2024-09-10 16:08] LABS: PT 14.7 Sec (11.4-14.6)
[2024-09-10] MEDS: LIPITOR 80 MG PO (17:38)
--- NOTE | 2024-09-10 18:00 | PTCARENOTE ---
Pt received this am on IV heparin and Nitro as ordered. Room air sat 98%. Pt using O2 at @LNC as needed for chest and arm pain. IV ashutosh increased to 20mcg but 1745. No c/o of a headache at this time. Pt for CT surgery tomorrow as scheduled.
[2024-09-10] MEDS: MORPHINE SULFATE 2 MG IV (21:33)
[2024-09-10] MEDS: ROXICODONE 10 MG PO (22:39)
[2024-09-10] MEDS: MELATONIN 5 MG PO (22:39)
[2024-09-11] VITALS (10 sets, daily range): BP systolic 98–133; BP diastolic 56–85; BMI 37.1
--- NOTE | 2024-09-11 01:02 | PTCARENOTE ---
Received patient at change of shift. A&Ox3 with son and friend bedside. Vitals stable on 2L NC. Nitro gtt running @ 20 mcg/hr and heparin gtt running @ 1800 units/hr through right AC. Pt c/o general discomfort-- gave Tylenol-- see AUG. Right radial
site clean, dry, and intact. Discussed plan of care for evening. Patient verbalized understanding. Call townsend within reach.
--- NOTE | 2024-09-11 01:05 | PTCARENOTE ---
Addendum entered by Yesika Bell RN 09/11/24 01:15:
Pt refuses to keep BP cuff on despite education of the risks with the nitro gtt.
Addendum entered by Yesika Bell RN 09/11/24 01:14:
Nitro gtt increased to 50 mcg per BOUBACAR Ta to help with shoulder discomfort. Will monitor BP. Patient instructed to leave cuff on to be able to monitor.
Addendum entered by Yesika Bell RN 09/11/24 01:11:
Shoulder pain continued. Prescribed Roxicodone-- see MAR. Wrapped more warm blankets around shoulders.
Addendum entered by Yesika Bell RN 09/11/24 01:09:
Pt continued c/o shoulder pain. Stated it was 'not muscular but skeletal feeling.' Stated 'if you would just let me take a shower like I want, I'm sure it will help.' RN educated patient on the dangers of showering given his current chest pain,
morphine, blockages, etc. Pt verbalized understanding.
Addendum entered by Yesika Bell RN 09/11/24 01:07:
Pt continuing to c/o of shoulder pain. Informed BOUBACAR Ta-- assessed patient. Prescribed morphine-- given-- see MAR. EKG completed-- no change to previous EKG. Pt instructed to return to bed, O2 applied, and instructed to leave BP cuff
on.
Original Note:
Pt c/o shoulder pain bilaterally 'in the joint where the bone meets the shoulder.' Pt denies chest pain. Unable to give additional pain meds at this time. Applied warm blanket to shoulders and encouraged patient to sit in chair for a bit instead of
the bed.
--- NOTE | 2024-09-11 01:12 | PTCARENOTE ---
CV prep completed for the evening. Pt was shaved, washed with HCG soap, sheets and gown changed. Discussed plan for the morning. Patient verbalized understanding. Call townsend within reach.
[2024-09-11] MEDS: TYLENOL 650 MG PO (03:10)
[2024-09-11] MEDS: HEPARIN 25000 UNITS/250 ML IV (03:15)
[2024-09-11 04:44] LABS: APTT 75.7 Sec (23.4-35.0)
[2024-09-11 04:51] LABS: % Basophils 0.6 % (0-2); % Eosinophils 3.5 % (0-6); % Immature Granulocytes 0.5 % (0-0.5); % Lymphocytes 20.8 % (20.5-51.1); % Monocytes 8.4 % (1.7-9.3); % Neutrophils 66.2 % (42.2-75.2); Absolute Basophils 0.1 10^3/uL (0-0.2); Absolute Eosinophils 0.3 10^3/uL (0-0.7); Absolute Immature Granulocytes 0.1 10^3/uL (0-0.05); Absolute Monocytes 0.8 10^3/uL (0.1-0.6); Absolute Neutrophils 6.3 10^3/uL (1.4-6.5); Hematocrit 38.6 % (39.0-52.0); Hemoglobin 12.6 g/dL (13.0-18.0); Mean Corp Hgb Conc. 32.6 g/dL (33.0-37.0); Mean Corpuscular Hgb 28.9 pg (27.0-31.0); Mean Corpuscular Volume 88.5 fL (80.0-94.0); Mean Platelet Volume 11.9 fL (7.4-10.4); Nucleated Red Blood Cells % 0 % (-); Platelet Count 145 10^3/uL (130-400); Red Blood Cell Count 4.36 10^6/uL (4.70-6.10); Red Cell Dist. Width 13.6 % (11.5-14.5); White Blood Cell Count 9.6 10^3/uL (4.8-10.8)
[2024-09-11 04:58] LABS: ALT (SGPT) 17 U/L (0-50); AST (SGOT) 19 U/L (17-59); Albumin 3.2 g/dl (3.5-5.0); Alkaline Phosphatase 60 U/L (38-126); Blood Urea Nitrogen 15 mg/dl (9-20); Calcium 8.9 mg/dl (8.4-10.2); Carbon Dioxide 26 mmol/L (22-30); Chloride 102 mmol/L (98-107); Estimated Creatinine Clearance 115 ml/min; Glucose 142 mg/dl (70-99); Potassium 4.1 mmol/L (3.5-5.1); Sodium 133 mmol/L (135-145); Total Bilirubin 1.1 mg/dl (0.2-1.3); Total Protein 5.1 g/dl (6.3-8.2); eGFR > 60.00
[2024-09-11] MEDS: MAGNESIUM OXIDE 500 MG PO (05:58)
[2024-09-11] MEDS: PROTONIX 40 MG PO (05:58)
[2024-09-11] MEDS: BACTROBAN 2% OINTMENT 1 APPLIC NASAL ×2 (05:58→19:41)
[2024-09-11] MEDS: LOPRESSOR 25 MG PO (05:58)
--- NOTE | 2024-09-11 06:23 | PTCARENOTE ---
Pt HCG wipes, new leads placed, preop meds given-- see AUG. Bed switched. Son is bedside. Discussed plan for son. Heparin gtt and nitro gtt staying on to CV OR per BOUBACAR Ta.
[2024-09-11 07:47] LABS: Urine Albumin 1+ (Neg - Trace); Urine Bilirubin Negative (Negative); Urine Character Clear (Clear); Urine Color Yellow; Urine Glucose Negative (Negative); Urine Ketone Negative (Negative); Urine Leukocyte Negative (Negative); Urine Nitrite Negative (Negative); Urine Occult Blood Negative (Negative); Urine Specific Gravity 1.025 (<1.030); Urine Urobilinogen Negative (Neg - 1+)
--- NOTE | 2024-09-11 07:56 | W.PN.CD ---
Today's Communication / Plan
-
OR today
Impression / Plan
-
NSTEMI
-Trop peak 2.080
-Cath with 80% LMCA and RCA TOOL GRINDING MACHINE OPERATOR, pending CABG today
-Continue asa/statin/bb
-continue IV heparin with intensive monitoring of labs
-echo with EF 32, dilated chambers
-multiple discussions with CT surgery (Dr. Augustine) regarding revascularization approach in setting of possible non-viable GSVs (reported history of vein stripping); fortunately vein appeared viable on ultrasound; if unable to harvest will plan on 2v
CABG (PALACIO-LAD, rad-OM)
Acute on chronic systolic heart failure secondary to ischemic cardiomyopathy
HFrEF with moderately reduced ejection fraction
-post CABG should be initiated on GDMT with attention paid to cost (BB, TAYLOR/ARB, MRA at maximally tolerarted doses should be first line)
-will need repeat TTE in 3 months to determine candidacy for ICD
-no need for lasix, examines euvolemic and LVEDP 13 on cath
Hyperlipidemia: LDL 190, likely familial?
-high dose statin and ezetimibe
-eventual goal <55, may require other agents
Morbid obesity: will need weight loss; GLP1ra would be idea but will be challenging given lack of insurance
Social history. Patient very concerned with cost. He says he is broke, lost his job and has no insurance. CM involved.
High risk situation with NSTEMI and left main Cor disease, mvd.
Subjective:
to CVOR today for CABG
Data:
Cath 08/13/24:
HEMODYNAMIC DATA
LV 113/9 (EDP 13) mmHg
AO 109/84 (mean 93) mmHg
CORONARY ANGIOGRAPHY
Dominance: right
LM: 80% distal shaft focal stenosis.
LAD: Large vessel giving rise to a large branching D1 and wrapping around the apex. There are serial 40% stenoses in the mid vessel and a long 90% stenosis in the distal vessel. There is diffuse moderate disease throughout the lower branch of the
D1.
LCx: Moderate caliber vessel giving rise to a moderate caliber branching OM1, small LPL1, and moderate caliber LPL2. There is a 40% stenosis in the OM1 before the branch. There is otherwise mild non-obstructive disease.
RCA: Proximal TOOL GRINDING MACHINE OPERATOR. The RPDA fills via [id number]-uf-lqdmf collaterals from the apical LAD.
CONCLUSIONS
1. severe multivessel coronary artery disease as described with RCA TOOL GRINDING MACHINE OPERATOR and high-grade left main stenosis
2. mildly elevated LV filling pressure and no aortic stenosis
TTE 09/10/24
Mild biventricular dilation with Moderately reduced left ventricular systolic
function.
Left ventricular ejection fraction is 32% by volumetric assessment.
Moral right ventricular systolic function.
Stage II diastolic dysfunction suggestive of abnormal relaxation and increased
filling pressures.
No significant valvular disease.
Mild pulmonary hypertension.
Compared to the prior echo on 01/18/2018, systolic dysfunction is new, the
ventricles are now dilated, and mild pulmonary hypertension is now seen.
Physical Exam
Vital Signs/Labs
Vital Signs
Temp Pulse Resp BP Pulse Ox
36.8 C 93 18 133/82 97
09/10/24 20:33 09/11/24 05:58 09/10/24 20:33 09/11/24 05:58 09/10/24 20:33
09/10/24 09/11/24 09/12/24
06:59 06:59 06:59
Actual Weight 119.7 kg 120.5 kg
09/11/24 03:30
09/11/24 03:30
PT 14.7 Sec (11.4-14.6) H 09/10/24 15:48
INR 1.10 09/10/24 15:48
APTT 75.7 Sec (23.4-35.0) H 09/11/24 03:30
Magnesium 2.2 mg/dl (1.6-2.3) 09/10/24 03:05
Triglycerides 205 mg/dl (10-149) H 09/09/24 11:19
LDL Cholesterol, Calc 190 mg/dl 09/09/24 11:19
VLDL Cholesterol, Calc 41 mg/dl (0-30) H 09/09/24 11:19
HDL Cholesterol 45 mg/dl 09/09/24 11:19
09/09/24
11:19
Ryy-K-Pbaggzrcrtg Pept 1830
LAB Results
09/09/24 09/09/24 09/09/24
11: 14:30 20:38
Troponin I 1.460 H* Cancelled 2.080 H*
09/10/24
03:05
Troponin I 2.060 H*
Data Reviewed
-
Date of Service: September 11, 2024
Medical Decision Making: Reviewed Test Results
EKG: Tracing Personally Visualized and interpreted
Echo: Tracing Personally Visualized and interpreted
X-Ray/CT/US/MRI/NUC/PET: Image Personally Visualized and interpreted
Medical Tests (PFT, Pathology etc): Image Personally Visualized and interpreted
Labs: Labs Reviewed by me
[2024-09-11 08:08] LABS: ACT+ - POC 156 Seconds (82-134)
[2024-09-11 08:23] LABS: Urine Mucus Moderate; Urine Squamous Cell 0-2 /LPF (Few)
[2024-09-11 08:24] LABS: Urine Bacteria Few (Negative); Urine Red Blood Cell 0-2 /HPF (0-2); Urine White Cell 0-2 /HPF (0-5)
[2024-09-11 08:56] LABS: B.E. - POC 2.9 mmol/L; Glucose - POC 188 mg/dl (70-99); HCO3 - POC 26 mmol/L (21-28); Hematocrit - POC 35 % PCV (42-52); Hemodilution- POC No; Ionized Calcium - POC 1.12 mmol/L (1.15-1.33); Lactate - POC 1.03 mmol/L (0.36-0.75); PCO2 - POC 34 mmHg (35-48); PO2 - POC 121 mmHg (83-108); Sodium - POC 140 mmol/L (136-145); Specimen Type - POC Arterial; pH - POC 7.49 (7.35-7.45)
[2024-09-11 10:20] LABS: ACT+ - POC 478 Seconds (82-134)
[2024-09-11 10:42] LABS: B.E. - POC -0.8 mmol/L; Glucose - POC 209 mg/dl (70-99); HCO3 - POC 24 mmol/L (21-28); Hematocrit - POC 36 % PCV (42-52); Hemodilution- POC No; Hemoglobin Calculated - POC 12.4; Ionized Calcium - POC 1.19 mmol/L (1.15-1.33); Lactate - POC 0.99 mmol/L (0.36-0.75); O2 Saturation %Calculated-POC 99.6 % (94-98); PCO2 - POC 40 mmHg (35-48); PO2 - POC 181 mmHg (83-108); Sodium - POC 139 mmol/L (136-145); Specimen Type - POC Arterial; pH - POC 7.39 (7.35-7.45)
[2024-09-11 10:55] LABS: ACT+ - POC 587 Seconds (82-134)
[2024-09-11 11:12] LABS: B.E. - POC 3.2 mmol/L; Glucose - POC 189 mg/dl (70-99); HCO3 - POC 29 mmol/L (21-28); Hematocrit - POC 33 % PCV (42-52); Hemodilution- POC Yes; Hemoglobin Calculated - POC 11.3; Ionized Calcium - POC 0.99 mmol/L (1.15-1.33); Lactate - POC 1.17 mmol/L (0.36-0.75); O2 Saturation %Calculated-POC 99.9 % (94-98); PCO2 - POC 49 mmHg (35-48); PO2 - POC 336 mmHg (83-108); Potassium - POC 4.5 mmol/L (3.5-5.1); Sodium - POC 137 mmol/L (136-145); Specimen Type - POC Arterial; pH - POC 7.38 (7.35-7.45)
[2024-09-11 11:22] LABS: ACT+ - POC 515 Seconds (82-134)
[2024-09-11 11:42] LABS: B.E. - POC 2.9 mmol/L; Glucose - POC 189 mg/dl (70-99); HCO3 - POC 30 mmol/L (21-28); Hematocrit - POC 33 % PCV (42-52); Hemodilution- POC Yes; Hemoglobin Calculated - POC 11.1; Ionized Calcium - POC 1.08 mmol/L (1.15-1.33); Lactate - POC 1.39 mmol/L (0.36-0.75); O2 Saturation %Calculated-POC 99.9 % (94-98); PCO2 - POC 55 mmHg (35-48); PO2 - POC 353 mmHg (83-108); Sodium - POC 138 mmol/L (136-145); Specimen Type - POC Arterial; pH - POC 7.34 (7.35-7.45)
[2024-09-11 11:51] LABS: ACT+ - POC 495 Seconds (82-134)
[2024-09-11 12:12] LABS: B.E. - POC 2.3 mmol/L; Glucose - POC 177 mg/dl (70-99); HCO3 - POC 28 mmol/L (21-28); Hematocrit - POC 33 % PCV (42-52); Hemodilution- POC Yes; Hemoglobin Calculated - POC 11.1; Ionized Calcium - POC 1.04 mmol/L (1.15-1.33); Lactate - POC 1.86 mmol/L (0.36-0.75); O2 Saturation %Calculated-POC 99.9 % (94-98); PCO2 - POC 49 mmHg (35-48); PO2 - POC 369 mmHg (83-108); Potassium - POC 4.1 mmol/L (3.5-5.1); Sodium - POC 139 mmol/L (136-145); Specimen Type - POC Arterial; pH - POC 7.37 (7.35-7.45)
[2024-09-11 12:23] LABS: ACT+ - POC 458 Seconds (82-134)
--- NOTE | 2024-09-11 12:23 | CM ---
Chart reviewed. Patient is in the OR today. Patient is independent of ADLS, lives with his 23 yr old son in a [address], 3 [address], 0 DME. Plan is for the patient to return home with CT Transitional RN. CM to follow
[2024-09-11 12:44] LABS: B.E. - POC 1.8 mmol/L; Glucose - POC 153 mg/dl (70-99); HCO3 - POC 28 mmol/L (21-28); Hematocrit - POC 32 % PCV (42-52); Hemodilution- POC Yes; Ionized Calcium - POC 1.05 mmol/L (1.15-1.33); Lactate - POC 2.93 mmol/L (0.36-0.75); O2 Saturation %Calculated-POC 99.9 % (94-98); PCO2 - POC 51 mmHg (35-48); PO2 - POC 270 mmHg (83-108); Potassium - POC 4.3 mmol/L (3.5-5.1); Sodium - POC 140 mmol/L (136-145); Specimen Type - POC Arterial; pH - POC 7.35 (7.35-7.45)
[2024-09-11 12:47] LABS: ACT+ - POC 104 Seconds (82-134)
--- NOTE | 2024-09-11 13:16 | PTCARENOTE ---
VS captured for previous shift via [employer] monitor.
--- NOTE | 2024-09-11 13:17 | W.IMMPOSTOP ---
Addendum entered and electronically signed by Levy Augustine MD 09/11/24 14:13:
[id number]
Original Note:
Surgical Immed Post Op Note
-
CARDIAC SURGERY OPERATIVE NOTE:
Preoperative Dx:
MVCAD including LM disease, MEAT CUTTER APPRENTICE of RCA
NSTEMI
Reduced LVEF (32%)
Postoperative Dx:
Same
Procedures:
1) Median sternotomy
2) Takedown of TRE (narrow pedicle)
3) Endoscopic harvest/prep of L RA
4) Endoscopic harvest/prep of RLE GSV
5) CABG x 3 (TRE to LAD, GSV to D1, RA to OM1 (cephalad branch))
Cardiac Surgeon:
Levy Augustine M.D.
Assistants:
Rajwinder DexterABooker-CBooker; endoscopic harvest/prep of RLE GSV; first breaker feeder throughout
Carlos HernandezCBooker; endoscopic harvest/prep of L RA; exrous-qoqy-lyso sternotomy closure
Anesthesia:
Daljit Mac M.D. and Tony Granda.R.N.A.
Perfusion:
Joselyn Bhakta C.C.P.; XC: 72min, CPB: 117min
Findings:
TRE was very healthy appearing conduit w/ brisk blood flow; ELD 2.25mm
GSV was healthy below the knee, the upper thigh portion was not patent s/p prior ablation; ELD 3.5mm
L RA was very healthy appearing conduit w/ ELD 3.5mm
LAD was visible on the epicardial surface w/ scattered calcifications, TRE placed to apical segment; ELD 2.25mm
D1 was intramyocardial under approximately 1mm of myocardium; scattered calcifications; ELD 2.25mm
OM1 was deeply intramyocardium under approximately 4mm of myocardium; healthy aranda; ELD 2.75mm
RPDA was intramyocardial, not palpable, and elusive. Several very small (<0.5mm) RPLBs and acute marginals were cleared in an attempt to identify the R PDA or other bypassable target w/o success. Blind dissection was undertaken in all the typical
anatomoic locations of the distal RCA/RPDA w/o success - given MEAT CUTTER APPRENTICE nature of this vessel w/ collateralization, further attempts at identification were abandoned.
Antegrate cardioplegic arrest post ~300mL, (800mL antegrade; 400mL retrograde initially; supplemental 250mL antegrade)
Post-FRANCIA: please see anesthesia report
Implants:
CT x 4 (B/L pleural, inferior mediastinal, superior mediastinal)
Sternal wires x 7
Sternal 'X' plate w/ 8 - 12mm screws
Sternal 'Square' plate w/ 4 - 10mm screws
Complications:
None
Condition:
96 sinus (-0.3/-0.2); 124/70; 47/26; CVP 19; CO/CI: 4.96/2.08
GTTS: levophed 12, insulin 1, precedex 0.5, dobutamine 5, cardizem 2.5
Stable/guarded to CVICU
[2024-09-11] MEDS: LOPRESSOR PO (13:26)
[2024-09-11] MEDS: LOW STRENGTH ASPIRIN PO (13:26)
[2024-09-11] MEDS: NORVASC PO (13:32)
[2024-09-11] MEDS: NOVOLOG FLEXPEN SC ×2 (13:32→15:39)
--- NOTE | 2024-09-11 13:38 | CON.INTV ---
Consultation
Consultation Request
Date/Time Consultation Requested: 09/11/2024 - 1307
Date/Time Consultation Performed: 09/11/2024 - 1330
Requesting Provider: SHAWN Araujo
Performing Provider: Dr. Ramey
Reason for Consultation: s/p CABG x 3
Medical History
-
Chief Complaint: Chest pain + shortness of breath with exertion
History of Present Illness:
59-year-old male non-smoker with a past medical history of hypercholesterolemia, chronic lower back pain, lumbar radiculitis, history of lumbar spine herniated disks and left shoulder impingement who presents with worsening chest pain + dyspnea on
exertion. Patient was sent in on 09/09/2024 by his PCP. When patient was in the ER he was chest pain-free. He did endorse lower extremity swelling. He has been on unemployment for some time and this has been causing much stress for him. Initial
EKG showed diffuse ST depressions and initial troponin was elevated at 1.46. Patient diagnosed with NSTEMI and started on heparin drip in the ER and also given aspirin. Cardiology consulted and left heart catheterization performed on 09/09/2024
showing severe multivessel CAD with AUTOMATIC WHEEL LINE OPERATOR of the RCA and high-grade left main stenosis. Also mildly elevated LV filling pressures with LVEDP 13 mmHg and no aortic stenosis. Transthoracic echo on 09/10/2024 showed a reduced LVEF at 32% with stage II
diastolic dysfunction with normal RV size and function and no significant valvular disease. Compared to prior echo in December 2017, systolic dysfunction is now new and the LV is now dilated. Cardiothoracic surgery consulted to evaluate for CABG.
Today patient underwent CABG x 3 with no immediate complications, and she was transferred to the CVICU for further care. Outsole Skiver services consulted for additional management/recommendations.
When I saw the patient, he had already been extubated. Currently on Levophed at 6 mcg/min, Cardene at 2.5 mg/hr, dobutamine at 3 mcg/kg/min, and insulin drip at 4.5 units/h. Heart rate 112, BP via A-line 97/59, PAP 41/18, CO/CI: 7.36/3.09, and
saturating 94% on 6 L/min. He is having chest discomfort but otherwise denies shortness of breath, PEOPLES, nausea, fevers or chills.
PMHx: Left shoulder impingement, right hip tendinitis, lumbar radiculitis, herniated intervertebral disc of lumbar spine, chronic lower back pain, history of anxiety
PSHx: Inguinal hernia repair, deviated septum surgery, wisdom teeth extraction, left finger fracture/surgical repair
Past Medical History
Past Medical History: Other (Above as per HPI)
Past Surgical History: Other (Above as per HPI)
Social History
Tobacco: Non-smoker
Alcohol: None
Drug: None
Family History
Family History: CAD (Mother, father and 2 sisters + brother) and Other (Father: Hypercholesterolemia + stroke; Brother: History of stroke + Parkinson's disease)
Allergies / Home Medications
Allergies
Allergy/AdvReac Type Severity Reaction Status Date / Time
Penicillins Allergy Unknown Verified 09/09/24 11:10
Home Medications
�Medication �Instructions �Recorded �Confirmed �Last Taken �Type
acetaminophen 500 mg tablet 1,000 mg PO Q6HPRN PRN MILD PAIN 09/09/24 09/09/24 09/08/24 History
1000 MG
bisacodyl 5 mg tablet 5 mg PO HS Sleep 09/09/24 09/09/24 09/08/24 History
diphenhydramine HCl 25 mg capsule 25 mg PO HSPRN PRN ITCHING 09/09/24 09/09/24 09/08/24 History
(Benadryl)
ibuprofen 200 mg tablet (Advil) 600 mg PO Q6HPRN PRN HEADACHE 09/09/24 09/09/24 Unknown History
ibuprofen 200 mg-diphenhydramine 2 cap PO HSPRN PRN SLEEP 09/09/24 09/09/24 09/09/24 History
HCl 25 mg capsule (Advil PM
Liqui-Gels)
Review of Systems
-
History Source: Patient
All other systems: Negative unless noted
Vitals / Labs / Diagnostic Testing
Vital Signs
Temp Pulse Resp BP Pulse Ox
99 F 118 19 98/56 94
09/11/24 18:00 09/11/24 18:00 09/11/24 18:00 09/11/24 14:45 09/11/24 18:00
Lab Data
09/11/24 17:26
09/11/24 13:52
Laboratory Results
09/10/24 09/11/24 09/11/24
18:31 03:30 13:52
PT 16.2 H
INR 1.25
APTT 76.0 H 75.7 H
pH 7.39
pCO2 42
pO2 80 L
HCO3 25.4
O2 Delivery Level
09/11/24 09/11/24
14:58 17:26
PT
INR
APTT
pH 7.40 7.42
pCO2 38 39
pO2 70 L 83
HCO3 23.5 25.3
O2 Delivery Level
Diagnostic Testing:
Physical Exam
-
HEENT: Normocephalic and Anicteric
Cardiovascular: S1/S2, Rub (positive) and Peripheral Edema (trace LE edema b/l)
Respiratory: Wheeze (negative), Rales (negative), Rhonchi (negative), Non-Labored Respirations, Other (Diminished breath sounds with reduced inspiratory effort from chest pain) and Other (Chest tubes: Bilateral pleural chest tubes + mediastinal
chest tubes x 2)
GI: Soft, Distended (Abdominal obesity), Non Tender and Normal Bowel Sounds
Neurology: Awake, Alert and Tremors (negative)
Skin: Warm and Dry
General: Respiratory Distress (negative), Pain (Chest discomfort due to surgery), Chills (negative) and Sweats (negative)
Assessment
-
Assessment: 59-year-old male non-smoker with a past medical history of hypercholesterolemia, chronic lower back pain, lumbar radiculitis, history of lumbar spine herniated disks and left shoulder impingement who presents with worsening chest pain +
dyspnea on exertion. Patient was sent in on 09/09/2024 by his PCP. When patient was in the ER he was chest pain-free. He did endorse lower extremity swelling. He has been on unemployment for some time and this has been causing much stress for
him. Initial EKG showed diffuse ST depressions and initial troponin was elevated at 1.46. Patient diagnosed with NSTEMI and started on heparin drip in the ER and also given aspirin. Cardiology consulted and left heart catheterization performed on
09/09/2024 showing severe multivessel CAD with AUTOMATIC WHEEL LINE OPERATOR of the RCA and high-grade left main stenosis. Also mildly elevated LV filling pressures with LVEDP 13 mmHg and no aortic stenosis. Transthoracic echo on 09/10/2024 showed a reduced LVEF at 32% with
stage II diastolic dysfunction with normal RV size and function and no significant valvular disease. Compared to prior echo in December 2017, systolic dysfunction is now new and the LV is now dilated. Cardiothoracic surgery consulted to evaluate for
CABG. Today patient underwent CABG x 3 with no immediate complications, and she was transferred to the CVICU for further care. Outsole Skiver services consulted for additional management/recommendations.
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
Impression:
#Multivessel CAD including left main disease and AUTOMATIC WHEEL LINE OPERATOR of RCA complicated by NSTEMI s/p CABG x 3 (POD #0)
#Acute on chronic systolic heart failure due to ICM
#Hyperlipidemia
#Morbid obesity
Plan:
Patient was successfully extubated today to nasal cannula, currently saturating 94% on 6 L/min
Continue to wean down supplemental O2 flow rate to maintain SpO2 >90-94%
prn nebulized bronchodilators - not currently bronchospastic
Encourage incentive spirometer use q1hr while awake
Pulmonary artery catheter parameters will be followed
Pressors/antihypertensive/inotropes/diuretics will be provided as needed
Maintain MAP>65
Replete electrolytes with K>4, Mg>2
Monitor chest tube output
Monitor hemoglobin
Monitor platelet count and coags
Transfuse blood products as needed to maintain Hb>7g/dL, plt>50k (given post-operative status)
CT surgery managing chest tubes
Monitor blood sugar to maintain euglycemia with goal BG 110-140
Insulin drip per protocol
Aspiration precautions
DVT prophylaxis
Early nutrition
Early mobilization
Critical care statement: A total of 46 minutes of critical care time was provided for this patient today. This includes management of ventilator, spontaneous breathing trial, arterial blood gases, pressors, of unstable vital signs, evaluation of the
patient at bedside, reviewing the patient's pertinent medical records including radiographs, microbiology, laboratory evaluations, and discussion with primary team and critical care nursing.
--- NOTE | 2024-09-11 13:55 | W.CVOR.SURPR ---
CVOR Surgeon Immed Pre Op
-
I have examined this patient prior to performance of the scheduled procedure.
The patient's condition is unchanged from the time of the dictated/written History and
Physical and the patient is able to undergo the scheduled procedure.
[2024-09-11 13:56] LABS: B.E. - POC 0.3 mmol/L; Glucose - POC 155 mg/dl (70-99); HCO3 - POC 25 mmol/L (21-28); Hematocrit - POC 32 % PCV (42-52); Hemodilution- POC Yes; Hemoglobin Calculated - POC 10.8; Ionized Calcium - POC 1.26 mmol/L (1.15-1.33); O2 Saturation %Calculated-POC 94.5 % (94-98); PCO2 - POC 42 mmHg (35-48); PO2 - POC 74 mmHg (83-108); Potassium - POC 3.8 mmol/L (3.5-5.1); Sodium - POC 139 mmol/L (136-145); Specimen Type - POC Arterial; pH - POC 7.39 (7.35-7.45)
[2024-09-11 14:01] LABS: Glucose - Point of Care 193 mg/dl (70-99)
[2024-09-11] MEDS: NSS 500 IV (14:11)
[2024-09-11] MEDS: ANCEF 10 IV ×2 (14:11)
[2024-09-11] MEDS: TYLENOL PO (14:11)
[2024-09-11 14:13] LABS: B.E. 0.3 mmol/L; HCO3 25.4 mmol/L (21-28); Ionized Calcium 1.13 mMOL/L (1.15-1.33); O2 Saturation % 97.8 % (94-98); PCO2 42 mmHg (35-48); PO2 80 mmHg (83-108); Sodium 132 mMOL/L (136-145); pH 7.39 (7.35-7.45)
[2024-09-11] MEDS: CARDENE 200 IV (14:13)
[2024-09-11] MEDS: VENTOLIN NEBULES 2.5 MG INH ×2 (14:14→17:45)
[2024-09-11 14:17] LABS: Hematocrit 34.4 % (39.0-52.0); Hemoglobin 11.6 g/dL (13.0-18.0); Platelet Count 104 10^3/uL (130-400)
[2024-09-11 14:21] LABS: INR 1.25; PT 16.2 Sec (11.4-14.6)
[2024-09-11] MEDS: CALCIUM GLUCONATE 100 IV (14:21)
[2024-09-11 14:23] LABS: Blood Urea Nitrogen 13 mg/dl (9-20); Estimated Creatinine Clearance > 125 ml/min; Glucose 197 mg/dl (70-99); Magnesium 2.5 mg/dl (1.6-2.3)
--- NOTE | 2024-09-11 14:45 | PTCARENOTE ---
Patient received from CVOR s/p CABG x 3. RIJ Cordis/[place] catheter, R radial arterial lines present - leveled, flushed, and calibrated w/good waveforms returned. Intubated w/8.0 ETT, weaning FiO2 as able. Mediastinal chest tubes x 2 to
pleurevac, R and L pleural chest tubes to separate pleurevac, both placed to -20cm suction w/no air leaks noted. Kramer catheter to gravity. All procedural sites stable. Labs drawn, EKG performed, pcxr obtained. See work list for full assessment,
interventions performed, and intravenous infusions and titration rates.
[2024-09-11 14:59] LABS: Glucose - Point of Care 200 mg/dl (70-99)
[2024-09-11 15:10] LABS: B.E. -1.1 mmol/L; HCO3 23.5 mmol/L (21-28); O2 Saturation % 95.9 % (94-98); PCO2 38 mmHg (35-48); PO2 70 mmHg (83-108)
[2024-09-11] MEDS: PACERONE PO (15:10)
[2024-09-11] MEDS: NEURONTIN PO (15:10)
[2024-09-11 16:04] LABS: Glucose - Point of Care 180 mg/dl (70-99)
[2024-09-11] MEDS: DILAUDID 0.5 MG IV ×2 (16:23→19:42)
[2024-09-11 17:03] LABS: Glucose - Point of Care 251 mg/dl (70-99)
[2024-09-11 17:03] LABS: Glucose - Point of Care 146 mg/dl (70-99)
[2024-09-11] MEDS: NOVOLIN R INSULIN INFUSION 100 IV (17:15)
[2024-09-11 17:24] LABS: B.E. - POC -0.4 mmol/L; Blood Urea Nitrogen - POC 11 mg/dl (3-120); Chloride - POC 103 mmol/L (96-111); Creatinine - POC 0.92 mg/dl (0.3-1.0); Glucose - POC 195 mg/dl (70-99); HCO3 - POC 25 mmol/L (21-28); Hematocrit - POC 35 % PCV (42-52); Hemodilution- POC Yes; Hemoglobin Calculated - POC 11.9; Ionized Calcium - POC 1.18 mmol/L (1.15-1.33); Lactate - POC 2.03 mmol/L (0.36-0.75); O2 Saturation %Calculated-POC 93.4 % (94-98); PCO2 - POC 44 mmHg (35-48); PO2 - POC 71 mmHg (83-108); Potassium - POC 3.7 mmol/L (3.5-5.1); Sodium - POC 138 mmol/L (136-145); Specimen Type - POC Arterial; pH - POC 7.37 (7.35-7.45)
[2024-09-11 17:30] LABS: Blood Urea Nitrogen - POC 11 mg/dl (3-120); Chloride - POC 103 mmol/L (96-111); Creatinine - POC 0.97 mg/dl (0.3-1.0); Glucose - POC 161 mg/dl (70-99); HCO3 - POC 24 mmol/L (21-28); Hematocrit - POC 38 % PCV (42-52); Hemodilution- POC Yes; Hemoglobin Calculated - POC 12.8; Ionized Calcium - POC 1.22 mmol/L (1.15-1.33); Lactate - POC 2.66 mmol/L (0.36-0.75); O2 Saturation %Calculated-POC 92.5 % (94-98); PCO2 - POC 39 mmHg (35-48); PO2 - POC 66 mmHg (83-108); Potassium - POC 3.9 mmol/L (3.5-5.1); Sodium - POC 139 mmol/L (136-145); Specimen Type - POC Arterial
[2024-09-11] MEDS: LIPITOR PO (17:31)
[2024-09-11 17:38] LABS: B.E. 0.8 mmol/L; HCO3 25.3 mmol/L (21-28); O2 Saturation % 99.1 % (94-98); PCO2 39 mmHg (35-48); PO2 83 mmHg (83-108); pH 7.42 (7.35-7.45)
[2024-09-11 17:43] LABS: Hematocrit 36.3 % (39.0-52.0); Hemoglobin 12.1 g/dL (13.0-18.0); Platelet Count 120 10^3/uL (130-400)
--- NOTE | 2024-09-11 17:55 | PTCARENOTE ---
CPAP wean initiated. Good TV observed, no apnea noted. ABG obtained, results conveyed to BORIS Sudhakar. Patient extubated to 6lnc w/out incident, SaO2 @ 93%.
[2024-09-11 18:00] LABS: Glucose - Point of Care 146 mg/dl (70-99)
[2024-09-11] MEDS: ROXICODONE 5 MG PO (18:05)
[2024-09-11] MEDS: OFIRMEV 100 IV (18:10)
[2024-09-11 19:06] LABS: Glucose - Point of Care 137 mg/dl (70-99)
[2024-09-11] MEDS: ANCEF 5 IV (19:40)
[2024-09-11] MEDS: LOW STRENGTH ASPIRIN 81 MG PO (19:41)
[2024-09-11] MEDS: SENOKOT-S 1 TABLET PO (19:42)
[2024-09-11 20:16] LABS: Glucose - Point of Care 106 mg/dl (70-99)
--- NOTE | 2024-09-11 20:30 | PTCARENOTE ---
Report received from OTONIEL Miranda at 1900. Walking rounds done. Pt awake, alert, oriented x 4. Speech clear. Moves all extremities equally x 4. C/O sternal and L upper back pain, 01/08. Dilaudid IV given. See MAR. BBS present. Pt on 6L/NC. Decreased B
bases. No wheezing auscultated. Pt expectorating thick, white-pale yellow sputum. CDB encouraged. Audible heart tones. + pericardial rub. Pt in SR with frequent PVCs at times. Levo gtt at 6 mcg/min to maintain MAP > 65. Dobutamine gtt at 3
mcg/kg/min. Cardene gtt at 2.5mg/hr. CI done: 2.94, SVR 789. MVO2 sent: 72.2. FERMIN Winston made aware. For pulse and wound assessments, see flowsheets. CTs x 4, all to -20 cm suction. Hourly and prn CT output monitored. Belly soft, obese, nontender.
Hypoactive bs x 4. Kramer to drain, clear, yellow urine. Hourly UO monitored. Glycemic protocol followed. Pt on Insulin gtt. Dr. Ramey and FERMIN Winston at bedside to assess pt. Pt's son at bedside and updated. Ongoing plan of care.
[2024-09-11 20:36] LABS: Mixed Venous O2 Saturation 72.2 %
[2024-09-11 22:24] LABS: Glucose - Point of Care 106 mg/dl (70-99)
[2024-09-11] MEDS: MELATONIN PO (22:33)
[2024-09-11] MEDS: TYLENOL 1000 MG PO (22:34)
[2024-09-11] MEDS: NEURONTIN 100 MG PO (22:34)
[2024-09-11] MEDS: PACERONE 200 MG PO (22:34)
--- NOTE | 2024-09-11 23:00 | PTCARENOTE ---
Levo gtt titrated to off at 2200. Dobutamine decreased to 2.5 mcg/kg/min per order. Will recheck CI, MVO2 and ABG with lytes at 2355. Pt placed onto midlfow / 8L/O2. Titrated to 9L/O2 at 2300. CDB and IS done with pt. IS peak 750 mls. Sats 93-94% on
9L/O2 midflow. Pt repositioned in bed multiple times for comfort.
[2024-09-12] VITALS (10 sets, daily range): BP systolic 93–122; BP diastolic 68–87; BMI 37.8
[2024-09-12 00:14] LABS: B.E. 2.4 mmol/L; HCO3 26.4 mmol/L (21-28); Ionized Calcium 1.21 mMOL/L (1.15-1.33); O2 Saturation % 98.6 % (94-98); PCO2 38 mmHg (35-48); PO2 79 mmHg (83-108); Potassium 4.7 mMOL/L (3.5-5.1); pH 7.45 (7.35-7.45)
[2024-09-12 00:15] LABS: O2 Therapy 8L NC
[2024-09-12 00:23] LABS: Glucose - Point of Care 99 mg/dl (70-99)
[2024-09-12] MEDS: DILAUDID 0.25 MG IV (00:36)
[2024-09-12 00:43] LABS: Mixed Venous O2 Saturation 73.8 %
--- NOTE | 2024-09-12 00:50 | PTCARENOTE ---
MVO 2 73.8, CI 2.70. Dobutamine gtt to 2 mcg/kg/min. ABG with lytes drawn. PO2 79. O2 increased to 10L/midflow. Pt CDB. Expectorating thick, white sputum. C/O moderate sternal pain. Dilaudid 0.25 mg IV given for pain. See MAR.
[2024-09-12] MEDS: ROXICODONE 5 MG PO ×4 (01:45→20:04)
--- NOTE | 2024-09-12 02:00 | PTCARENOTE ---
Roxicodone 5 mg for moderate c/o sternal pain at 0145.
[2024-09-12 02:22] LABS: Glucose - Point of Care 121 mg/dl (70-99)
--- NOTE | 2024-09-12 03:10 | W.PN.CT ---
Today's Communication / Plan
-
-pod #1
-no issues overnight
-CI 2.38, CO 5.68, SVR 957, mvO2 68.8. Drips: Dobut 2, Cardene 2.5 for radial graft, Insulin
-CT outputs: 2 meds 280/450, 2 pleur 130/215 in 12/24 hrs
-wean off Dobut, then deline
-continue insulin
-transition from Cardene to Norvasc for radial graft
-current meds (ASA, Plavix, Lipitor, Norvasc, Amio, Lopressor, Protonix)
-encourage IS, OOB
Assessment / Plan
-
- Mv-CAD - s/p CABG x 3 (TRE to LAD, GSV to D1, RA to OM1 (cephalad branch)) by Dr Augustine on 09/11/24, pod #1
- HTN
- HLD
- Class 2 obesity (BMI 37)
- Pre-diabetes (HgA1c 6.3)
- Anxiety
- GERD/ Colon polyps
- Chronic b/l lower extremity edema
- Hx b/l SVG ablations
- Appendectomy
- L hand surgery
- Hernia repair
- L shoulder impingement
- Herniated lumbar disc
- Acute postop blood loss anemia- stable, no transfusion
- Acute postop thrombocytopenia
- Acute postop atelectasis
- Acute postop hypovolemia with subsequent hypervolemia
- Suspected pericarditis/+rub
Discussed patient care with: Nursing and Care Team
Subjective
-
Date of Service: September 12, 2024
Objective Data
-
PT 16.2 Sec (11.4-14.6) H 09/11/24 13:52
INR 1.25 09/11/24 13:52
APTT 75.7 Sec (23.4-35.0) H 09/11/24 03:30
Vital Signs
Vital Signs
Temp Pulse Resp BP Pulse Ox
98.9 F 103 20 117/66 94
09/12/24 02:37 09/12/24 02:37 09/12/24 02:37 09/11/24 22:34 09/12/24 02:37
CT Intake/Output/Weight
09/11/24 09/11/24 09/12/24
06:59 18:59 06:59
Intake Total 410.4 / 826.4 416.0 / 826.4
Output Total 530 / 1210 680 / 1210
Balance -119.6 / -383.6 -264.0 / -383.6
SaO2: 94
Physical Exam
-
General: Awake and AOx3
Cardiovascular: Regular rate & rhythm, No Murmurs and Rub
Respiratory: Decreased Breath Sounds
Sternum: Stable
Incision: Clean, Dry and Intact
Extremities: No Edema (2+ DP b/l)
Abdomen: soft, nontender, nondistended, + decreased bowel sounds
Data Reviewed
-
Lab Results: Results Reviewed
Medications: Active Meds Reviewed
Chest X-Ray: Report Reviewed and Image Reviewed
ECG: Report Reviewed and Image Reviewed
[2024-09-12 04:00] LABS: Glucose - Point of Care 108 mg/dl (70-99)
[2024-09-12] MEDS: CARDENE 200 IV (04:02)
[2024-09-12] MEDS: ANCEF 5 IV ×2 (04:02→11:41)
[2024-09-12 04:03] LABS: Mixed Venous O2 Saturation 68.8 %
[2024-09-12 04:16] LABS: Hematocrit 35.3 % (39.0-52.0); Hemoglobin 11.4 g/dL (13.0-18.0); Mean Corp Hgb Conc. 32.3 g/dL (33.0-37.0); Mean Corpuscular Hgb 28.9 pg (27.0-31.0); Mean Corpuscular Volume 89.6 fL (80.0-94.0); Mean Platelet Volume 11.5 fL (7.4-10.4); Platelet Count 114 10^3/uL (130-400); Red Blood Cell Count 3.94 10^6/uL (4.70-6.10); Red Cell Dist. Width 13.8 % (11.5-14.5); White Blood Cell Count 10.6 10^3/uL (4.8-10.8)
[2024-09-12] MEDS: DOBUTREX 500 MG 250 IV (04:30)
[2024-09-12 04:32] LABS: Blood Urea Nitrogen 14 mg/dl (9-20); Calcium 8.5 mg/dl (8.4-10.2); Carbon Dioxide 23 mmol/L (22-30); Chloride 103 mmol/L (98-107); Estimated Creatinine Clearance > 125 ml/min; Glucose 107 mg/dl (70-99); Magnesium 2.1 mg/dl (1.6-2.3); Potassium 4.4 mmol/L (3.5-5.1); Sodium 132 mmol/L (135-145); eGFR > 60.00
[2024-09-12] MEDS: TYLENOL 1000 MG PO ×3 (05:12→21:59)
[2024-09-12 05:37] LABS: Glucose - Point of Care 84 mg/dl (70-99)
--- NOTE | 2024-09-12 06:00 | PTCARENOTE ---
Labs sent this am. EKG done and shown to PA. Portable CXR done. Last CI was 2.39 at 0417. Pt on Dobut 2 mcg/kg/min. MVO2 68.8. Bed scale weight done this am.
--- NOTE | 2024-09-12 06:40 | PTCARENOTE ---
Dobutamine gtt decreased to 1 mcg/kg/min per order of PA.
[2024-09-12 07:58] LABS: Glucose - Point of Care 109 mg/dl (70-99)
--- NOTE | 2024-09-12 08:22 | W.PN.INTV ---
Today's Communication / Plan
Recommendations
Up OOB as tolerated
Pain control
Dobutamine drip being weaned off; continue to trend MVO2 with goal >60
Goal BG 110�140; wean down insulin drip as per protocol
Weaned down midflow nasal cannula flow rate as tolerated while keeping SpO2 >90-94%
Cardiac rehab consult
Beading Machine Operator services will continue to follow along while patient remains in the CVICU
Assessment
-
Assessment: 59-year-old male non-smoker with a past medical history of hypercholesterolemia, chronic lower back pain, lumbar radiculitis, history of lumbar spine herniated disks and left shoulder impingement who presents with worsening chest pain +
dyspnea on exertion. Patient was sent in on 09/09/2024 by his PCP. When patient was in the ER he was chest pain-free. He did endorse lower extremity swelling. He has been on unemployment for some time and this has been causing much stress for
him. Initial EKG showed diffuse ST depressions and initial troponin was elevated at 1.46. Patient diagnosed with NSTEMI and started on heparin drip in the ER and also given aspirin. Cardiology consulted and left heart catheterization performed on
09/09/2024 showing severe multivessel CAD with FITNESS/WELLNESS DIRECTOR of the RCA and high-grade left main stenosis. Also mildly elevated LV filling pressures with LVEDP 13 mmHg and no aortic stenosis. Transthoracic echo on 09/10/2024 showed a reduced LVEF at 32% with
stage II diastolic dysfunction with normal RV size and function and no significant valvular disease. Compared to prior echo in December 2017, systolic dysfunction is now new and the LV is now dilated. Cardiothoracic surgery consulted to evaluate for
CABG. Today patient underwent CABG x 3 with no immediate complications, and she was transferred to the CVICU for further care. Beading Machine Operator services consulted for additional management/recommendations.
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
Impression:
#Multivessel CAD including left main disease and FITNESS/WELLNESS DIRECTOR of RCA complicated by NSTEMI s/p CABG x 3 (POD #1)
#Acute on chronic systolic heart failure due to ICM
#Hyperlipidemia
#Morbid obesity
Plan:
Patient was successfully extubated on 09/11/2024 to nasal cannula, currently saturating 93% on 8 L/min midflow nasal cannula
Continue to wean down supplemental O2 flow rate to maintain SpO2 >90-94%
prn nebulized bronchodilators - not currently bronchospastic
Encourage incentive spirometer use q1hr while awake
Pulmonary artery catheter parameters will be followed
Pressors/antihypertensive/inotropes/diuretics will be provided as needed
Maintain MAP>65
Replete electrolytes with K>4, Mg>2
Monitor chest tube output (bilateral pleural chest tubes + mediastinal chest tubes x 2)
Monitor hemoglobin
Monitor platelet count and coags
Transfuse blood products as needed to maintain Hb>7g/dL, plt>50k (given post-operative status)
CT surgery managing chest tubes
Monitor blood sugar to maintain euglycemia with goal BG 110-140
Insulin drip per protocol
Aspiration precautions
DVT prophylaxis
Early nutrition
Early mobilization
Beading Machine Operator services will continue to follow along while patient remains in the CVICU
Critical care statement: A total of 41 minutes of critical care time was provided for this patient today. This includes management of ventilator, spontaneous breathing trial, arterial blood gases, pressors, of unstable vital signs, evaluation of the
patient at bedside, reviewing the patient's pertinent medical records including radiographs, microbiology, laboratory evaluations, and discussion with primary team and critical care nursing.
Subjective Dataa
Subjective Data
Date of Service:
Date of Service: September 12, 2024
Chief Complaint: Beading Machine Operator Follow Up
Subjective:
Patient was seen and evaluated today at bedside. Currently on midflow nasal cannula at 8 L/min, saturating 93%. Lagrange ry in place with heart rate 113, BP via A-line: 119/67, PAP 40/23, CO/CI: 6.1/2.56, and BP via NIBP: 106/75. Mediastinal chest
tubes x 2+ bilateral pleural chest tubes in place. Currently on insulin drip at 4.5 units/hr. Dobutamine drip to be weaned off this morning. Patient sitting in chair in no acute distress. Still has pain in his groin and at his penis (from the
Kramer catheter). Currently denies chest pain, SOB, PEOPLES, fevers or chills.
Review of Systems
General: Other (Negative unless mentioned above)
Objective Data
Data Reviewed
Vital Signs / I&O / Oxygen:
Vital Signs
Temp Pulse Resp BP Pulse Ox
99.1 F 101 20 117/66 96
09/12/24 09:00 09/12/24 08:45 09/12/24 09:00 09/11/24 22:34 09/12/24 09:00
Intake and Output
09/11/24 09/12/24 09/13/24
06:59 06:59 06:59
Intake Total 974.5 / 974.5 103.0 / 103.0
Output Total 1420 / 1420 150 / 150
Balance -445.5 / -445.5 -47.0 / -47.0
SaO2 [CPAP] 91
SaO2 [SIMV] 93
SaO2 96
Nasal Cannula flow liters per 6
minute
Physical Exam
General: Respiratory Distress (negative), Pain (Groin + penis) and Chills (negative)
HEENT: Normocephalic and Anicteric
Cardiovascular: S1-S2 and Peripheral Edema (negative)
Respiratory: Wheeze (negative), Crackles (negative), Rhonchi (negative), Non-Labored Respirations and Chest Tube (Mediastinal chest tubes x 2+ bilateral pleural chest tubes)
GI: Soft, Distended (Abdominal obesity), Non Tender and Normal Bowel Sounds
Neurology: AO x 3 and Tremors (negative)
Skin: Warm, Dry, Cyanosis (negative) and Jaundice (negative)
Labs/Micro/Reports
Lab Data
09/12/24 03:39
09/12/24 03:39
Laboratory Results
09/11/24 09/11/24 09/11/24
13:52 14:58 17:26
PT 16.2 H
INR 1.25
pH 7.39 7.40 7.42
pCO2 42 38 39
pO2 80 L 70 L 83
HCO3 25.4 23.5 25.3
O2 Delivery Level
09/11/24
23:58
PT
INR
pH 7.45
pCO2 38
pO2 79 L
HCO3 26.4
O2 Delivery Level 8l nc
[2024-09-12] MEDS: SENOKOT-S 1 TABLET PO ×2 (08:29→20:04)
[2024-09-12] MEDS: BACTROBAN 2% OINTMENT 1 APPLIC NASAL ×2 (08:29→20:04)
[2024-09-12] MEDS: MAGNESIUM OXIDE 500 MG PO ×2 (08:29→20:04)
[2024-09-12] MEDS: NEURONTIN 100 MG PO ×3 (08:29→21:59)
[2024-09-12] MEDS: LIDOCAINE 4% PATCH 1 PATCH TOPICAL (08:29)
[2024-09-12] MEDS: PLAVIX 75 MG PO (08:29)
[2024-09-12] MEDS: LOW STRENGTH ASPIRIN 81 MG PO (08:30)
[2024-09-12] MEDS: PROTONIX 40 MG PO (08:30)
[2024-09-12] MEDS: PACERONE 200 MG PO ×3 (08:30→21:59)
[2024-09-12] MEDS: NORVASC 2.5 MG PO (08:30)
--- NOTE | 2024-09-12 08:30 | PTCARENOTE ---
Patient received from logging worker; AAOx3, responds spontaneously to RN and follows commands; Flat affect; VSS; ST with PVC's on monitor; Friction rub present; +2 B/L LE edema; +2 DP, right radial, and left ulnar pulses; Shallow respirations; SpO2
92-97% on 10L midflow NC; Occasional, moist productive cough with thick, white sputum; CTx4 connected to -20 cm wall suction draining serosanguineous drainage - no tidaling, crepitus, or air leak noted; Lungs diminished at bases; Hypoactive BS;
Kramer catheter draining clear, yellow urine; Surgical sites intact; PIV x2; Right radial A-line, [place] floated to 45 cm in RIJ Cordis - all lines leveled and zeroed; Cardene, Dobutamine, and Insulin gtts infusing - see nursing flowsheets for further
details; See nursing documentation for further information.
[2024-09-12] MEDS: NOVOLOG FLEXPEN 4 UNITS SC ×2 (09:03→11:42)
[2024-09-12 09:42] LABS: Mixed Venous O2 Saturation 65.4 %
[2024-09-12 10:17] LABS: Glucose - Point of Care 100 mg/dl (70-99)
--- NOTE | 2024-09-12 10:58 | W.PN.CD ---
Today's Communication / Plan
-
Overall stable postop remains in sinus rhythm
Wean dobutamine as tolerated
EF 25 to 30% based on postop FRANCIA. Continue to assess HF
Continue to assess GDMT as patient recovers
Impression / Plan
-
-CABG x 3 (TRE to LAD, GSV to D1, RA to OM1 ))- 09/11/24
-Remains on low-dose dobutamine. Wean as tolerated.
-Remains in sinus rhythm. ECG stable
-Continue postop care as directed by CT surgery
NSTEMI
-Trop peak 2.080
-Cath with 80% LMCA and RCA ORACLE APPLICATIONS ANALYST,
-CABG x 3 (TRE to LAD, GSV to D1, RA to OM1 ))- 09/11/24
-Continue asa/statin/bb
-
Acute on chronic systolic heart failure secondary to ischemic cardiomyopathy
HFrEF. Preoperative echo with estimated ejection fraction of 32% postoperative FRANCIA with estimated ejection fraction 25 to 30%
-Continue to monitor postop
-Will continue to assess ability to add on GDMT as patient recovers from CABG
Hyperlipidemia:
-high dose statin and ezetimibe
-eventual goal <55, may require other agents
Morbid obesity: will need weight loss; GLP1ra would be idea but will be challenging given lack of insurance
Social history. Patient very concerned with cost. CM involved.
Subjective:
Awake alert postop CABG. Remains on low-dose dobutamine
Data:
Cath 08/13/24:
HEMODYNAMIC DATA
LV 113/9 (EDP 13) mmHg
AO 109/84 (mean 93) mmHg
CORONARY ANGIOGRAPHY
Dominance: right
LM: 80% distal shaft focal stenosis.
LAD: Large vessel giving rise to a large branching D1 and wrapping around the apex. There are serial 40% stenoses in the mid vessel and a long 90% stenosis in the distal vessel. There is diffuse moderate disease throughout the lower branch of the
D1.
LCx: Moderate caliber vessel giving rise to a moderate caliber branching OM1, small LPL1, and moderate caliber LPL2. There is a 40% stenosis in the OM1 before the branch. There is otherwise mild non-obstructive disease.
RCA: Proximal ORACLE APPLICATIONS ANALYST. The RPDA fills via [id number] collaterals from the apical LAD.
CONCLUSIONS
1. severe multivessel coronary artery disease as described with RCA ORACLE APPLICATIONS ANALYST and high-grade left main stenosis
2. mildly elevated LV filling pressure and no aortic stenosis
TTE 09/10/24
Mild biventricular dilation with Moderately reduced left ventricular systolic
function.
Left ventricular ejection fraction is 32% by volumetric assessment.
Moral right ventricular systolic function.
Stage II diastolic dysfunction suggestive of abnormal relaxation and increased
filling pressures.
No significant valvular disease.
Mild pulmonary hypertension.
Compared to the prior echo on 01/18/2018, systolic dysfunction is new, the
ventricles are now dilated, and mild pulmonary hypertension is now seen.
Physical Exam
Vital Signs/Labs
Vital Signs
Temp Pulse Resp BP Pulse Ox
99.4 F 101 18 117/66 96
09/12/24 10:00 09/12/24 08:45 09/12/24 10:00 09/11/24 22:34 09/12/24 10:00
09/11/24 09/12/24 09/13/24
06:59 06:59 06:59
Actual Weight 120.5 kg 123 kg
09/12/24 03:39
09/12/24 03:39
PT 16.2 Sec (11.4-14.6) H 09/11/24 13:52
INR 1.25 09/11/24 13:52
APTT 75.7 Sec (23.4-35.0) H 09/11/24 03:30
Magnesium 2.1 mg/dl (1.6-2.3) 09/12/24 03:39
Triglycerides 205 mg/dl (10-149) H 09/09/24 11:19
LDL Cholesterol, Calc 190 mg/dl 09/09/24 11:19
VLDL Cholesterol, Calc 41 mg/dl (0-30) H 09/09/24 11:19
HDL Cholesterol 45 mg/dl 09/09/24 11:19
09/09/24
11:19
Ofi-D-Xvbhccoszmo Pept 1830
LAB Results
09/09/24 09/09/24 09/09/24
11: 14:30 20:38
Troponin I 1.460 H* Cancelled 2.080 H*
09/10/24
03:05
Troponin I 2.060 H*
Physical Exam
Constitutional: No acute distress
Cardiovascular: Rhythm & rate is regular
Respiratory: Other (No wheezes or rhonchi. Chest tubes intact)
GI: Soft, Non tender and Other (Distended)
Neuro/Psych: Alert
Data Reviewed
-
Date of Service: September 12, 2024
Medical Decision Making: Reviewed Test Results
Echo: Report Reviewed by me
X-Ray/CT/US/MRI/NUC/PET: Report Reviewed by me
Medical Tests (PFT, Pathology etc): Image Personally Visualized and interpreted and Discussed with Nurse
Labs: Labs Reviewed by me and Other
--- NOTE | 2024-09-12 11:21 | W.PN.ANS.POP ---
Anesthesia Post Operative
- Anesthesia Post Op Note
Vital Signs Stable-See Nursing Note: Yes (patient on dobutamine and insulin infusions, vss)
Airway Patent: Yes
Adequate Pain Control: Yes
Change in Mental Status: No
Current Postoperative Nausea & Vomiting: No
Anesthesia Complications: No
General Anesthetic Recall: No
Unplanned Admission: No
Post Op Hydration Adequate: Yes
--- NOTE | 2024-09-12 11:36 | CM ---
Chart reviewed. Patient is OOB sitting in the chair. Patient is independent of ADLS, lives with his son in a [address], [address], 0 [address]. Patient currently does not have health insurance. [facility] and he does not [facility]
because he made more than $10,000. Patient will need generic medications for discharge. Antony check with [facility]. Plan is for the patient to return home with CT Transitional RN. CM to follow
[2024-09-12 11:43] LABS: Glucose - Point of Care 96 mg/dl (70-99)
--- NOTE | 2024-09-12 12:00 | PTCARENOTE ---
Patient OOB to chair with cardiac rehab and RN; Patient resting comfortably in chair
[2024-09-12] MEDS: NSS IV (12:37)
[2024-09-12 13:09] LABS: Glucose - Point of Care 135 mg/dl (70-99)
[2024-09-12] MEDS: LIDOCAINE URO-JET 2% 1 SYRINGE TOPICAL (13:25)
[2024-09-12] MEDS: FLEXBUMIN 100 IV ×2 (13:25→21:58)
[2024-09-12] MEDS: LASIX 20 MG IV (16:19)
[2024-09-12] MEDS: NOVOLOG FLEXPEN-MODERATE RESISTANCE 1 UNITS SC (16:44)
[2024-09-12 16:46] LABS: Glucose - Point of Care 172 mg/dl (70-99)
[2024-09-12 17:10] LABS: Mixed Venous O2 Saturation 52.3 %
--- NOTE | 2024-09-12 17:27 | PTCARENOTE ---
IV Albumin and IV Lasix ordered due to low urine output; MVO2 52.3 but CI >2, Dobutamine maintained off for now as per MD Augustine; Insulin gtt discontinued; [place] remains in place
[2024-09-12] MEDS: LIPITOR 80 MG PO (17:45)
[2024-09-12] MEDS: CALCIUM GLUCONATE 100 IV (20:03)
--- NOTE | 2024-09-12 20:15 | PTCARENOTE ---
Report received from OTONIEL Cheung. Pt assessed. Awake, alert , oriented x 4. Speech clear. Moves all extremities equally x 4. Pt on 4L/NC. Sats 92-94%. BBS present. Decreased to B bases. IS peak 1000 mls. Audible heart tones. Pt in ST, 100's, PVCs.
Pulsatile waveforms to R radial A-line, PA and CVP waveforms on R SG catheter. CI done: 2.0. Reported to Ed, PA. For pulse and wound assessments, see flowsheets. Belly soft, nontender. Hypoactive bs x 4. Kramer with clear, yellow urine. Ongoing plan
of care. Roxicodone 5 mg po for moderate c/o sternal pain.
[2024-09-12 22:15] LABS: Glucose - Point of Care 149 mg/dl (70-99)
[2024-09-13] VITALS (19 sets, daily range): BP systolic 95–130; BP diastolic 59–83; PULSE 97; O2SAT 95; BMI 38.0
--- NOTE | 2024-09-13 | PTCARENOTE ---
CI 2.44. Tmax 101.1. Tylenol 1 GM po given. T down to 99.9. PA aware of T. At bedside at ~2200. CDB and IS done with pt.
--- NOTE | 2024-09-13 01:06 | PTCARENOTE ---
Repeat CI 2.44. Dobutamine gtt remains off. Pt in SR with PVCs, frequent at times. O2 at 4L/NC. Sats 92-94%. CT and UO monitored. Pt currently sleeping. Awakened briefly. No c/o pain.
[2024-09-13] MEDS: ROXICODONE 5 MG PO ×2 (02:58→18:56)
[2024-09-13 03:29] LABS: Mixed Venous O2 Saturation 56.5 %
--- NOTE | 2024-09-13 03:41 | PTCARENOTE ---
Labs drawn and sent. Repeat CI done: 2.12. SVR 1029. Roxicodone 5 mg po for moderate c/o sternal pain. See MAR. Face washed. Pt coughing. Expectorated thick, callahan sputum. Remains on 4L/NC. Sats now 94-96%.
[2024-09-13 04:01] LABS: Hematocrit 30.4 % (39.0-52.0); Mean Corp Hgb Conc. 32.9 g/dL (33.0-37.0); Mean Corpuscular Hgb 29.2 pg (27.0-31.0); Mean Corpuscular Volume 88.9 fL (80.0-94.0); Mean Platelet Volume 12.7 fL (7.4-10.4); Platelet Count 95 10^3/uL (130-400); Red Blood Cell Count 3.42 10^6/uL (4.70-6.10); Red Cell Dist. Width 14.4 % (11.5-14.5); White Blood Cell Count 9.5 10^3/uL (4.8-10.8)
[2024-09-13] MEDS: MUCINEX 1200 MG PO (04:08)
[2024-09-13 04:09] LABS: Blood Urea Nitrogen 19 mg/dl (9-20); Calcium 8.6 mg/dl (8.4-10.2); Carbon Dioxide 24 mmol/L (22-30); Chloride 100 mmol/L (98-107); Estimated Creatinine Clearance 117 ml/min; Glucose 150 mg/dl (70-99); Magnesium 2.1 mg/dl (1.6-2.3); Potassium 4.4 mmol/L (3.5-5.1); Sodium 131 mmol/L (135-145); eGFR > 60.00
--- NOTE | 2024-09-13 05:12 | W.PN.CT ---
Today's Communication / Plan
-
Plan:
-No major issues overnight. Hemodynamically and neurologically intact
-Weaned off dobutamine drip yesterday, 09/12. Currently off all drips
-CI 2.44-> 2.12, MVO2 56.5%
-Consider d/c of chest tubes: 2meds 40/210, R/L pleurals 80/220
-No temporay PW
-D/C'd swan and a-line @ 0600
-D/C'd brewer @ 0600
-Monitor hyponatremia, 131, Diurese today, fluid restriction
-Monitor thrombocytopenia, 95K today, was 114K yesterday
-On Norvasc for radial graft
-Will resume Toprol XL today if BP permits, now that off dobutamine
-Cont. current meds (ASA, Plavix, Lipitor, Norvasc, Amio, Protonix; Toprol XL if BP permits)
-Maintain cordis another day
-Encourage use of IS
-OOB into chair/Ambulate
Assessment / Plan
-
- Mv-CAD - s/p CABG x 3 (TRE to LAD, GSV to D1, RA to OM1 (cephalad branch)) by Dr uAgustine on 09/11/24, pod #2
- HTN
- HLD
- Class 2 obesity (BMI 37)
- Pre-diabetes (HgA1c 6.3)
- Anxiety
- GERD/ Colon polyps
- Chronic b/l lower extremity edema
- Hx b/l SVG ablations
- Appendectomy
- L hand surgery
- Hernia repair
- L shoulder impingement
- Herniated lumbar disc
- Acute postop blood loss anemia- stable, no transfusion
- Acute postop thrombocytopenia
- Acute postop atelectasis
- Acute postop hypovolemia with subsequent hypervolemia
- Suspected pericarditis/+rub
Discussed patient care with: Cardiology, Nursing, Respiratory Therapy and Pharmacy
Subjective
-
Date of Service: September 13, 2024
Pt c/o pleuritic chest pain and cough this AM, Mucinex initiated
Objective Data
-
Lab Results
09/13/24 03:14
09/13/24 03:14
PT 16.2 Sec (11.4-14.6) H 09/11/24 13:52
INR 1.25 09/11/24 13:52
APTT 75.7 Sec (23.4-35.0) H 09/11/24 03:30
Vital Signs
Vital Signs
Temp Pulse Resp BP Pulse Ox
99.9 F 96 21 104/67 92
09/13/24 04:00 09/13/24 04:00 09/13/24 04:00 09/13/24 04:00 09/13/24 04:00
CT Intake/Output/Weight
09/12/24 09/12/24 09/13/24
06:59 18:59 06:59
Intake Total 564.1 / 974.5 1167.5 / 1617.5 450 / 1617.5
Output Total 890 / 1420 760 / 1290 530 / 1290
Balance -325.9 / -445.5 407.5 / 327.5 -80 / 327.5
SaO2: 92 (4L)
Physical Exam
-
General: Awake, Oriented and AOx3
Cardiovascular: Regular rate & rhythm, No Murmurs and No Gallop
Respiratory: Decreased Breath Sounds (at bases, otherwise clear)
Sternum: Stable
Incision: Clean, Dry, Intact and Dressing Intact
Extremities: Other (+trace edema)
Data Reviewed
-
Lab Results: Results Reviewed
Medications: Active Meds Reviewed
Chest X-Ray: Report Reviewed and Image Reviewed
ECG: Report Reviewed and Image Reviewed
[2024-09-13] MEDS: CALCIUM GLUCONATE 290 MG IV (06:04)
[2024-09-13] MEDS: FLEXBUMIN 100 IV (06:05)
[2024-09-13] MEDS: TYLENOL 1000 MG PO ×3 (06:06→21:26)
[2024-09-13] MEDS: DILAUDID 0.25 MG IV ×3 (06:11→21:25)
--- NOTE | 2024-09-13 07:11 | PTCARENOTE ---
Pt de-lined per CVICU protocol (SG Cath adn R radial A line). Nia d/c'ed at 0645. Report to OTONIEL Cheung.
--- NOTE | 2024-09-13 08:25 | W.PN.INTV ---
Today's Communication / Plan
Recommendations
Up OOB as tolerated
Pain control
Goal BG 110�140
Weaned down nasal cannula flow rate as tolerated while keeping SpO2 >90-94%
Cardiac rehab consult
Patient is now being downgraded to CVICU�telemetry status. No additional recommendations at this time. Proof Press Operator/Pulmonary service will now sign off. Please reconsult if there are any additional questions/concerns, or if patient's respiratory
status deteriorates.
Assessment
-
Assessment: 59-year-old male non-smoker with a past medical history of hypercholesterolemia, chronic lower back pain, lumbar radiculitis, history of lumbar spine herniated disks and left shoulder impingement who presents with worsening chest pain +
dyspnea on exertion. Patient was sent in on 09/09/2024 by his PCP. When patient was in the ER he was chest pain-free. He did endorse lower extremity swelling. He has been on unemployment for some time and this has been causing much stress for
him. Initial EKG showed diffuse ST depressions and initial troponin was elevated at 1.46. Patient diagnosed with NSTEMI and started on heparin drip in the ER and also given aspirin. Cardiology consulted and left heart catheterization performed on
09/09/2024 showing severe multivessel CAD with FREIGHT DISPATCHER of the RCA and high-grade left main stenosis. Also mildly elevated LV filling pressures with LVEDP 13 mmHg and no aortic stenosis. Transthoracic echo on 09/10/2024 showed a reduced LVEF at 32% with
stage II diastolic dysfunction with normal RV size and function and no significant valvular disease. Compared to prior echo in December 2017, systolic dysfunction is now new and the LV is now dilated. Cardiothoracic surgery consulted to evaluate for
CABG. Today patient underwent CABG x 3 with no immediate complications, and she was transferred to the CVICU for further care. Proof Press Operator services consulted for additional management/recommendations.
Chronic conditions YACHT MASTER: Left shoulder impingement, right hip tendinitis, lumbar radiculitis, herniated intervertebral disc of lumbar spine, chronic lower back pain, history of anxiety
Impression:
#Multivessel CAD including left main disease and FREIGHT DISPATCHER of RCA complicated by NSTEMI s/p CABG x 3 (POD #2)
#Acute on chronic systolic heart failure due to ICM
#Hyperlipidemia
#Morbid obesity
Plan:
Patient was successfully extubated on 09/11/2024 to nasal cannula, currently saturating 94% on 5 L/min midflow nasal cannula
Continue to wean down supplemental O2 flow rate to maintain SpO2 >90-94%
prn nebulized bronchodilators - not currently bronchospastic
Encourage incentive spirometer use q1hr while awake
Maintain MAP>65
Replete electrolytes with K>4, Mg>2
All 4 chest tubes removed today
Monitor hemoglobin
Monitor platelet count and coags
Transfuse blood products as needed to maintain Hb>7g/dL, plt>50k (given post-operative status)
Monitor blood sugar to maintain euglycemia with goal BG 110-140
Insulin drip per protocol
Aspiration precautions
DVT prophylaxis
Early nutrition
Early mobilization
Patient is now being downgraded to CVICU�telemetry status. No additional recommendations at this time. Proof Press Operator/Pulmonary service will now sign off. Thank you for allowing us to be involved in the care of this patient. Please reconsult if
there are any additional questions/concerns, or if patient's respiratory status deteriorates.
Total time spent today was 57 minutes for this encounter. Time includes reviewing laboratory test/imaging results, reviewing pertinent medical records, obtaining and reviewing medical history, performing an appropriate exam, ordering medications,
tests and procedures. Time also includes documentation of this encounter, coordinating patient care and communicating with other healthcare professionals. Total time does not include separately billed tests performed on this date of service.
Subjective Dataa
Subjective Data
Date of Service:
Date of Service: September 13, 2024
Chief Complaint: Proof Press Operator Follow Up
Subjective:
Patient was seen and evaluated this morning. Resting in a chair no acute distress, saturating 94% on 5 L/min, BP 102/72 and heart rate 97. He feels much better now that the chest tubes are out. Kramer is also out so his penis feels better as well.
No PEOPLES, SOB, fevers or chills, although he was having fevers yesterday with Tmax 101 �F.
Review of Systems
General: Other (Negative unless mentioned above)
Objective Data
Data Reviewed
Vital Signs / I&O / Oxygen:
Vital Signs
Temp Pulse Resp BP Pulse Ox
97.8 F 99 22 128/83 98
09/13/24 08:00 09/13/24 08:45 09/13/24 08:45 09/13/24 08:00 09/13/24 08:45
Intake and Output
09/12/24 09/13/24 09/14/24
06:59 06:59 06:59
Intake Total 974.5 / 974.5 1657.5 / 1657.5 160 / 160
Output Total 1420 / 1420 1400 / 1400 290 / 290
Balance -445.5 / -445.5 257.5 / 257.5 -130 / -130
SaO2 [CPAP] 91
SaO2 [SIMV] 93
SaO2 98
Nasal Cannula flow liters per 6
minute
Physical Exam
General: Respiratory Distress (negative), Comfortable, Chills (negative) and Sweats (negative)
HEENT: Normocephalic and Anicteric
Cardiovascular: S1-S2 and Peripheral Edema (negative)
Respiratory: Wheeze (negative), Crackles (Left lower lobe), Rhonchi (negative) and Non-Labored Respirations
GI: Soft, Distended (Abdominal obesity), Non Tender and Normal Bowel Sounds
Neurology: AO x 3 and Tremors (negative)
Skin: Warm, Dry, Cyanosis (negative) and Jaundice (negative)
Labs/Micro/Reports
Lab Data
09/13/24 03:14
09/13/24 03:14
[2024-09-13 08:30] LABS: Glucose - Point of Care 156 mg/dl (70-99)
[2024-09-13] MEDS: PLAVIX 75 MG PO (08:30)
--- NOTE | 2024-09-13 08:30 | PTCARENOTE ---
Patient received from shift lab technician; AAOx3, responds spontaneously to RN and follows commands; Anxious; VSS; SR with ST and PVC's on monitor; +2 B/L LE edema; +2 DP, right radial, and left ulnar pulses; Shallow respirations; SpO2 92-97% on 5L NC;
Occasional, moist productive cough with thick, callahan sputum; CTx4 connected to -20 cm wall suction draining serosanguineous drainage - no tidaling, crepitus, or air leak noted; Lungs diminished at bases; IS 750 ml; Patient urinating clear, yellow
urine in urinal; Surgical sites intact; PIV x2; RIJ Cordis with KVO infusing; IV Lasix and PO Potassium ordered; See nursing documentation for further information.
[2024-09-13] MEDS: TOPROL XL 12.5 MG PO ×2 (08:31→21:27)
[2024-09-13] MEDS: NORVASC 2.5 MG PO (08:31)
[2024-09-13] MEDS: PROTONIX 40 MG PO (08:31)
[2024-09-13] MEDS: SENOKOT-S 1 TABLET PO ×2 (08:31→21:26)
[2024-09-13] MEDS: MUCINEX 600 MG PO ×2 (08:31→18:56)
[2024-09-13] MEDS: PACERONE 200 MG PO ×2 (08:31→15:49)
[2024-09-13] MEDS: LOW STRENGTH ASPIRIN 81 MG PO (08:31)
[2024-09-13] MEDS: MAGNESIUM OXIDE 500 MG PO ×2 (08:31→21:26)
[2024-09-13] MEDS: NEURONTIN 100 MG PO ×3 (08:31→21:26)
[2024-09-13] MEDS: KCL 20 MEQ PO (08:31)
[2024-09-13] MEDS: NOVOLOG FLEXPEN-MODERATE RESISTANCE 1 UNITS SC (08:32)
[2024-09-13] MEDS: BACTROBAN 2% OINTMENT 1 APPLIC NASAL ×2 (08:32→21:25)
[2024-09-13] MEDS: LIDOCAINE 4% PATCH TOPICAL (08:32)
[2024-09-13] MEDS: LASIX 40 MG IV ×2 (08:37→12:49)
[2024-09-13 12:01] LABS: Glucose - Point of Care 215 mg/dl (70-99)
[2024-09-13] MEDS: NOVOLOG FLEXPEN-MODERATE RESISTANCE 3 UNITS SC (12:08)
--- NOTE | 2024-09-13 13:00 | PTCARENOTE ---
Chest tubes removed at bedside by RN; VSS throughout and no complications noted; IV Lasix ordered and given; Patient ambulating in hallways with RN and cardiac rehab; Patient resting comfortably in chair
--- NOTE | 2024-09-13 14:38 | PTCARENOTE ---
Patient complaining of weakness in right arm distal from elbow and slight numbness in right hand; VSS; No prominent weakness noted when comparing B/L upper extremities; CVNP Barbra Rondon notified and aware - no further orders at this time
--- NOTE | 2024-09-13 15:00 | W.PN.CD ---
Today's Communication / Plan
-
Currently comfortable in a chair. Blood pressure stable but relatively low.
As patient recovers we will see how we can add additional GDMT for cardiomyopathy
Impression / Plan
-
-CABG x 3 (TRE to LAD, GSV to D1, RA to OM1 ))- 09/11/24
-Remains on low-dose dobutamine. Wean as tolerated.
-Remains in sinus rhythm. ECG stable
-Continue postop care as directed by CT surgery
NSTEMI
-Trop peak 2.080
-Cath with 80% LMCA and RCA HEAD WAITER/WAITRESS BANQUET,
-CABG x 3 (TRE to LAD, GSV to D1, RA to OM1 ))- 09/11/24
-Continue asa/statin/bb
-
Acute on chronic systolic heart failure secondary to ischemic cardiomyopathy
HFrEF. Preoperative echo with estimated ejection fraction of 32% postoperative FRANCIA with estimated ejection fraction 25 to 30%
-Continue to monitor postop
-Will continue to assess ability to add on GDMT as patient recovers from CABG
-Currently blood pressure limiting additional GDMT
Hyperlipidemia:
-high dose statin and ezetimibe
-eventual goal <55, may require other agents
Morbid obesity: will need weight loss; GLP1ra would be idea but will be challenging given lack of insurance
Social history. Patient very concerned with cost. CM involved.
Subjective:
Awake alert postop CABG. Remains on low-dose dobutamine
Data:
Cath 08/13/24:
HEMODYNAMIC DATA
LV 113/9 (EDP 13) mmHg
AO 109/84 (mean 93) mmHg
CORONARY ANGIOGRAPHY
Dominance: right
LM: 80% distal shaft focal stenosis.
LAD: Large vessel giving rise to a large branching D1 and wrapping around the apex. There are serial 40% stenoses in the mid vessel and a long 90% stenosis in the distal vessel. There is diffuse moderate disease throughout the lower branch of the
D1.
LCx: Moderate caliber vessel giving rise to a moderate caliber branching OM1, small LPL1, and moderate caliber LPL2. There is a 40% stenosis in the OM1 before the branch. There is otherwise mild non-obstructive disease.
RCA: Proximal HEAD WAITER/WAITRESS BANQUET. The RPDA fills via [id number] collaterals from the apical LAD.
CONCLUSIONS
1. severe multivessel coronary artery disease as described with RCA HEAD WAITER/WAITRESS BANQUET and high-grade left main stenosis
2. mildly elevated LV filling pressure and no aortic stenosis
TTE 09/10/24
Mild biventricular dilation with Moderately reduced left ventricular systolic
function.
Left ventricular ejection fraction is 32% by volumetric assessment.
Moral right ventricular systolic function.
Stage II diastolic dysfunction suggestive of abnormal relaxation and increased
filling pressures.
No significant valvular disease.
Mild pulmonary hypertension.
Compared to the prior echo on 01/18/2018, systolic dysfunction is new, the
ventricles are now dilated, and mild pulmonary hypertension is now seen.
Physical Exam
Vital Signs/Labs
Vital Signs
Temp Pulse Resp BP Pulse Ox
98.3 F 102 18 97/65 94
09/13/24 12:10 09/13/24 14:22 09/13/24 12:10 09/13/24 14:22 09/13/24 14:45
09/12/24 09/13/24 09/14/24
06:59 06:59 06:59
Actual Weight 123 kg 123.6 kg
09/13/24 03:14
09/13/24 03:14
PT 16.2 Sec (11.4-14.6) H 09/11/24 13:52
INR 1.25 09/11/24 13:52
APTT 75.7 Sec (23.4-35.0) H 09/11/24 03:30
Magnesium 2.1 mg/dl (1.6-2.3) 09/13/24 03:14
Triglycerides 205 mg/dl (10-149) H 09/09/24 11:19
LDL Cholesterol, Calc 190 mg/dl 09/09/24 11:19
VLDL Cholesterol, Calc 41 mg/dl (0-30) H 09/09/24 11:19
HDL Cholesterol 45 mg/dl 09/09/24 11:19
09/09/24
11:19
Wun-B-Vayyrruwqdc Pept 1830
Physical Exam
Constitutional: Comfortable
Cardiovascular: Pedal edema is absent
Respiratory: Wheeze Absent, Rhonchi Absent and Other (Decreased at bases)
GI: Soft
Neuro/Psych: Alert
Data Reviewed
-
Date of Service: September 13, 2024
Medical Decision Making: Reviewed Test Results
X-Ray/CT/US/MRI/NUC/PET: Report Reviewed by me
Medical Tests (PFT, Pathology etc): Report Reviewed by me
Labs: Labs Reviewed by me
--- NOTE | 2024-09-13 16:15 | PTCARENOTE ---
Patient states numbness and weakness in RUE has resolved; Patient ambulating in hallways with RN; Oxygen weaned down to 1L NC
[2024-09-13 16:56] LABS: Glucose - Point of Care 144 mg/dl (70-99)
[2024-09-13] MEDS: NOVOLOG FLEXPEN-MODERATE RESISTANCE SC (16:57)
[2024-09-13] MEDS: NSS IV (16:57)
[2024-09-13] MEDS: LIPITOR 80 MG PO (17:02)
--- NOTE | 2024-09-13 19:49 | PTCARENOTE ---
assumed care of patient @ 1900. recieved pt laying in bed, Aox3. Anxious at baseline. SR / ST on tele. +pulses, +2 edema to LE. Diminished on room air satting mid 90s taking shallow breaths. Occasional productive cough with callahan sputum. IS 750. BURCH.
Round obese belly, tolerating diet. voiding clear yellow urine in bathroom. Aquacel CDI, R groin and R knee NATHANIEL, L radial PAINTER PLATE. R IJ cordis with KVO, PIV x2 all patent. 5 of grady given for pain. pt resting in bed with call townsend within reach .
[2024-09-13] MEDS: PACERONE 400 MG PO (21:27)
[2024-09-13] MEDS: BENADRYL 25 MG PO (22:37)
[2024-09-14] VITALS (7 sets, daily range): BP systolic 95–132; BP diastolic 45–95; BMI 37.6
--- NOTE | 2024-09-14 | PTCARENOTE ---
no change in assessment, call townsend within reach .
--- NOTE | 2024-09-14 03:27 | W.PN.CT ---
Today's Communication / Plan
-
Plan:
-No major issues overnight. Hemodynamically and neurologically intact
-Weaned off dobutamine drip 09/12. Currently off all drips
-Tolerating resumption of BB, on Norvasc for Left radial graft
-Will add Lisinopril 2.5 mg Qdaily (will titrate as BP permits) for GDMT given EF of 25-30%, pt unable to afford Entresto or SGLT2i
-Hyponatremia has resolved, 135 up from 131 yesterday. Cont. diurese today, fluid restriction (may benefit from diamox today given elevated co2)
-Thrombocytopenia is improving, 95 -> 124K
-Cont. current meds (ASA, Plavix, Lipitor, Norvasc, Amio, Protonix; Toprol XL, Lisinopril, Lasix)
-D/C cordis
-Encourage use of IS/wean off O2
-No temporary PW
-OOB into chair/Ambulate
-Home likely tomorrow
Assessment / Plan
-
- Mv-CAD - s/p CABG x 3 (TRE to LAD, GSV to D1, RA to OM1 (cephalad branch)) by Dr Augustine on 09/11/24, pod #3
- HTN
- HLD
- Class 2 obesity (BMI 37)
- Pre-diabetes (HgA1c 6.3)
- Anxiety
- GERD/ Colon polyps
- Chronic b/l lower extremity edema
- Hx b/l SVG ablations
- Appendectomy
- L hand surgery
- Hernia repair
- L shoulder impingement
- Herniated lumbar disc
- Acute postop blood loss anemia- stable, no transfusion
- Acute postop thrombocytopenia
- Acute postop atelectasis
- Acute postop hypovolemia with subsequent hypervolemia
- Suspected pericarditis/+rub
Discussed patient care with: Cardiology, Nursing, Respiratory Therapy, Pharmacy and Care Team
Subjective
-
Date of Service: September 14, 2024
Pt c/o mild incisional pain, otherwise feels well
Objective Data
-
PT 16.2 Sec (11.4-14.6) H 09/11/24 13:52
INR 1.25 09/11/24 13:52
APTT 75.7 Sec (23.4-35.0) H 09/11/24 03:30
Vital Signs
Vital Signs
Temp Pulse Resp BP Pulse Ox
97.7 F 97 18 130/82 96
09/13/24 23:13 09/13/24 23:09 09/13/24 23:13 09/13/24 23:09 09/13/24 23:13
CT Intake/Output/Weight
09/13/24 09/13/24 09/14/24
06:59 18:59 06:59
Intake Total 490 / 1657.5 970 / 1490 520 / 1490
Output Total 640 / 1400 2385 / 2385
Balance -150 / 257.5 -1415 / -895 520 / -895
SaO2: 96 (RA)
Physical Exam
-
General: Awake, Oriented and AOx3
Cardiovascular: Regular rate & rhythm, No Murmurs and No Gallop
Respiratory: Decreased Breath Sounds
Sternum: Stable
Incision: Clean, Dry, Intact and Dressing Intact
Extremities: Other (+trace edema)
Data Reviewed
-
Lab Results: Results Reviewed
Medications: Active Meds Reviewed
Chest X-Ray: Report Reviewed and Image Reviewed
ECG: Report Reviewed and Image Reviewed
[2024-09-14 04:11] LABS: Hematocrit 33.8 % (39.0-52.0); Hemoglobin 11.2 g/dL (13.0-18.0); Mean Corp Hgb Conc. 33.1 g/dL (33.0-37.0); Mean Corpuscular Hgb 29.5 pg (27.0-31.0); Mean Corpuscular Volume 88.9 fL (80.0-94.0); Mean Platelet Volume 11.7 fL (7.4-10.4); Platelet Count 124 10^3/uL (130-400); Red Cell Dist. Width 13.8 % (11.5-14.5); White Blood Cell Count 10.6 10^3/uL (4.8-10.8)
[2024-09-14 04:27] LABS: Blood Urea Nitrogen 22 mg/dl (9-20); Calcium 8.8 mg/dl (8.4-10.2); Carbon Dioxide 32 mmol/L (22-30); Chloride 100 mmol/L (98-107); Estimated Creatinine Clearance > 125 ml/min; Glucose 142 mg/dl (70-99); Magnesium 2.1 mg/dl (1.6-2.3); Potassium 4.2 mmol/L (3.5-5.1); Sodium 135 mmol/L (135-145); eGFR > 60.00
--- NOTE | 2024-09-14 04:56 | PTCARENOTE ---
pt placed on 2L overnight for 88 % 02 while sleeping. pt back and forth to bathroom multiple times trying to have BM. took two walks in hallway overnight. now resting in recliner, no other change in assessment .
[2024-09-14 07:34] LABS: Glucose - Point of Care 120 mg/dl (70-99)
[2024-09-14] MEDS: TYLENOL 1000 MG PO ×3 (07:35→21:44)
[2024-09-14] MEDS: MUCINEX 600 MG PO ×2 (07:36→20:32)
[2024-09-14] MEDS: PACERONE 400 MG PO ×3 (07:36→21:44)
[2024-09-14] MEDS: PROTONIX 40 MG PO (07:36)
[2024-09-14] MEDS: TOPROL XL 12.5 MG PO ×2 (07:36→20:32)
[2024-09-14] MEDS: PLAVIX 75 MG PO (07:37)
[2024-09-14] MEDS: LOW STRENGTH ASPIRIN 81 MG PO (07:37)
[2024-09-14] MEDS: MAGNESIUM OXIDE 500 MG PO ×2 (07:37→20:32)
[2024-09-14] MEDS: SENOKOT-S 1 TABLET PO ×2 (07:37→20:32)
[2024-09-14] MEDS: NEURONTIN 100 MG PO ×3 (07:37→21:44)
[2024-09-14] MEDS: LIDOCAINE 4% PATCH 1 PATCH TOPICAL (07:37)
[2024-09-14] MEDS: DIAMOX 250 MG PO (07:37)
[2024-09-14] MEDS: NOVOLOG FLEXPEN-MODERATE RESISTANCE SC ×3 (07:38→17:14)
[2024-09-14] MEDS: BACTROBAN 2% OINTMENT 1 APPLIC NASAL ×2 (07:39→20:33)
[2024-09-14] MEDS: LASIX 40 MG IV (07:39)
--- NOTE | 2024-09-14 08:57 | PTCARENOTE ---
Received pt for 7a-7p shift. Pt AAOx3, without complaints. SR with PVCs on director of cardiac rehabilitation, VSS. Patient ambulatory in room and hallway with 1 person min assist. Medications administered as ordered. Patient tolerating po intake, + BM. IS up to 1999,
occasional productive cough. RIJ cordis infusing without complications. Instructed patient to call for assistance prior to ambulation. Call townsend in reach. Patient verbalized understanding. Will continue to monitor.
[2024-09-14 09:29] LABS: Glucose - Point of Care 211 mg/dl (70-99)
[2024-09-14] MEDS: NORVASC 2.5 MG PO (10:08)
[2024-09-14] MEDS: ROXICODONE 5 MG PO ×2 (10:15→23:19)
--- NOTE | 2024-09-14 12:02 | PTCARENOTE ---
Patient reassessed, ambulatory in [place] without assistance. VSS, SR with PVCs on rn mobile. Medications administered, patient medicated for pain. Voiding in bathroom without issues. Will continue to monitor.
--- NOTE | 2024-09-14 12:49 | W.PN.CD ---
Today's Communication / Plan
-
Patient comfortable sitting in chair blood pressures are stable and appear a bit better than they were yesterday. Currently maintained on metoprolol and low-dose amlodipine (for radial graft)
Would consider addition of low-dose lisinopril 2.5 mg a day if blood pressures remain stable
.
Note unfortunately the patient discovered that his brother on the day that he had his CABG. he says his brother had issues with Parkinson's disease
Impression / Plan
-
-CABG x 3 (TRE to LAD, GSV to D1, RA to OM1 ))- 09/11/24
-Off pressors
-Remains in sinus rhythm.
-Continue postop care as directed by CT surgery
NSTEMI
-Trop peak 2.080
-Cath with 80% LMCA and RCA FAMILY SERVICES WORKER,
-CABG x 3 (TRE to LAD, GSV to D1, RA to OM1 ))- 09/11/24
-Continue asa/statin/bb
-
Acute on chronic systolic heart failure secondary to ischemic cardiomyopathy
HFrEF. Preoperative echo with estimated ejection fraction of 32% postoperative FRANCIA with estimated ejection fraction 25 to 30%
-Continue to monitor postop
-Will continue to assess ability to add on GDMT as patient recovers from CABG
-Currently on Toprol and also on low-dose amlodipine (initiated by CT surgery due to radial graft)
-Blood pressure appears to be improving and may allow for additional medical therapy. Consider addition of lisinopril 2.5 mg a day
Hyperlipidemia:
-high dose statin and ezetimibe
-eventual goal <55, may require other agents
Morbid obesity: will need weight loss; GLP1ra would be idea but will be challenging given lack of insurance
Social history. Patient very concerned with cost. CM involved.
Subjective:
Awake alert postop CABG. Remains on low-dose dobutamine
Data:
Cath 08/13/24:
HEMODYNAMIC DATA
LV 113/9 (EDP 13) mmHg
AO 109/84 (mean 93) mmHg
CORONARY ANGIOGRAPHY
Dominance: right
LM: 80% distal shaft focal stenosis.
LAD: Large vessel giving rise to a large branching D1 and wrapping around the apex. There are serial 40% stenoses in the mid vessel and a long 90% stenosis in the distal vessel. There is diffuse moderate disease throughout the lower branch of the
D1.
LCx: Moderate caliber vessel giving rise to a moderate caliber branching OM1, small LPL1, and moderate caliber LPL2. There is a 40% stenosis in the OM1 before the branch. There is otherwise mild non-obstructive disease.
RCA: Proximal FAMILY SERVICES WORKER. The RPDA fills via [id number] collaterals from the apical LAD.
CONCLUSIONS
1. severe multivessel coronary artery disease as described with RCA FAMILY SERVICES WORKER and high-grade left main stenosis
2. mildly elevated LV filling pressure and no aortic stenosis
TTE 09/10/24
Mild biventricular dilation with Moderately reduced left ventricular systolic
function.
Left ventricular ejection fraction is 32% by volumetric assessment.
Moral right ventricular systolic function.
Stage II diastolic dysfunction suggestive of abnormal relaxation and increased
filling pressures.
No significant valvular disease.
Mild pulmonary hypertension.
Compared to the prior echo on 01/18/2018, systolic dysfunction is new, the
ventricles are now dilated, and mild pulmonary hypertension is now seen.
Physical Exam
Vital Signs/Labs
Vital Signs
Temp Pulse Resp BP Pulse Ox
97.9 F 92 20 112/45 94
09/14/24 08:00 09/14/24 10:08 09/14/24 08:00 09/14/24 10:08 09/14/24 09:41
09/13/24 09/14/24 09/15/24
06:59 06:59 06:59
Actual Weight 122.3 kg
09/14/24 03:54
09/14/24 03:54
PT 16.2 Sec (11.4-14.6) H 09/11/24 13:52
INR 1.25 09/11/24 13:52
APTT 75.7 Sec (23.4-35.0) H 09/11/24 03:30
Magnesium 2.1 mg/dl (1.6-2.3) 09/14/24 03:54
Triglycerides 205 mg/dl (10-149) H 09/09/24 11:19
LDL Cholesterol, Calc 190 mg/dl 09/09/24 11:19
VLDL Cholesterol, Calc 41 mg/dl (0-30) H 09/09/24 11:19
HDL Cholesterol 45 mg/dl 09/09/24 11:19
09/09/24
11:19
Mdi-M-Jkikrnwdnde Pept 1830
Physical Exam
Constitutional: No acute distress
Cardiovascular: Rhythm & rate is regular
Respiratory: Wheeze Absent and Rhonchi Absent
GI: Soft and Non tender
Neuro/Psych: Alert and Oriented
Data Reviewed
-
Date of Service: September 14, 2024
Medical Decision Making: Reviewed Test Results
Echo: Report Reviewed by me
Medical Tests (PFT, Pathology etc): Report Reviewed by me
Labs: Labs Reviewed by me
[2024-09-14 13:11] LABS: Glucose - Point of Care 119 mg/dl (70-99)
[2024-09-14] MEDS: ZESTRIL 2.5 MG PO (15:23)
[2024-09-14] MEDS: NSS IV (15:24)
--- NOTE | 2024-09-14 15:45 | PTCARENOTE ---
Patient reassessed, assessment unchanged. Pt ambulatory in [facility] x 2. GUERRERO carson d/c'd. VSS, SR with PVCs on weight loss counselor. Pt tolerating po intake. Medications administered as ordered. Patient denies pain at this time. Will continue to
monitor.
[2024-09-14 17:13] LABS: Glucose - Point of Care 136 mg/dl (70-99)
[2024-09-14] MEDS: LIPITOR 80 MG PO (17:14)
--- NOTE | 2024-09-14 20:45 | PTCARENOTE ---
Assumed care of pt from roger RN. Walking rounds completed. Pt AAOx3. SR w/ PVC's on the tele monitor. HR 90s. +2 B/L LE edema. Teds stockings on. Left ulnar pulse weak. Right radial pulse palpable. B/L DP pulses weak on palpation. Pt on RA. POX
95-98% while sitting in the chair. Lung sounds diminished. Occasional cough. Deep breathing and IS encouraged. Abdomen round/nontender. +BS. Pt voiding w/o issue. All surgical sites stable. PIVx2 intact. Pt assisted from the chair to the bed. See
worklist for full nursing assessment and interventions. Call townsend within reach.
--- NOTE | 2024-09-14 23:00 | PTCARENOTE ---
assumed care of patient @ 2300. recieved pt laying in bed, Aox3. Anxious at baseline. SR / ST on tele. +pulses, +2 edema to LE. Diminished on room air satting mid 90s taking shallow breaths. Occasional productive cough with callahan sputum. BURCH. Round
obese belly, tolerating diet. voiding clear yellow urine in bathroom. Aquacel CDI, R groin and R knee NATHANIEL, L radial AIRPLANE FUELER. , PIV x2 patent. pt resting in bed with call townsend within reach .
[2024-09-14] MEDS: KCL 20 MEQ PO (23:18)
[2024-09-15 00:36] VITALS: BP 119/55
[2024-09-15] MEDS: BENADRYL 25 MG PO (01:23)
--- NOTE | 2024-09-15 03:14 | W.PN.CT ---
Today's Communication / Plan
-
Plan:
-No major issues overnight. Hemodynamically and neurologically intact
-Weaned off dobutamine drip 09/12. Currently off all drips
-Tolerating resumption of BB, on Norvasc for Left radial graft. Tolerated 2.5 mg Lisinopril for GDMT given EF 25-30%, pt unable to afford Entresto or SGLT2i
-Will increase Toprol XL to 25 mg po BID given tachycardia with ambulation
-Monitor hyponatremia, 134 down from 135 yesterday. Cont. gentle diurese as BP permits, fluid restriction
-Thrombocytopenia is improving, 95 -> 124 ->140K
-Cont. current meds (ASA, Plavix, Lipitor, Norvasc, Amio, Protonix; Toprol XL, Lisinopril, Lasix)
-F/U 2-view cxr
-Encourage use of IS
-No temporary PW
-OOB into chair/Ambulate
-Home today
Assessment / Plan
-
- Mv-CAD - s/p CABG x 3 (TRE to LAD, GSV to D1, RA to OM1 (cephalad branch)) by Dr Augustine on 09/11/24, pod #4
- HTN
- HLD
- Class 2 obesity (BMI 37)
- Pre-diabetes (HgA1c 6.3)
- Anxiety
- GERD/ Colon polyps
- Chronic b/l lower extremity edema
- Hx b/l SVG ablations
- Appendectomy
- L hand surgery
- Hernia repair
- L shoulder impingement
- Herniated lumbar disc
- Acute postop blood loss anemia- stable, no transfusion
- Acute postop thrombocytopenia
- Acute postop atelectasis
- Acute postop pulmonary insufficiency
- Acute postop hypovolemia with subsequent hypervolemia
- Suspected pericarditis/+rub
- Acute postop hyponatremia
Discussed patient care with: Cardiology, Nursing, Respiratory Therapy, Pharmacy and Care Team
Subjective
-
Date of Service: September 15, 2024
Pt c/o mild incisional pain, otherwise feels well
Objective Data
-
PT 16.2 Sec (11.4-14.6) H 09/11/24 13:52
INR 1.25 09/11/24 13:52
APTT 75.7 Sec (23.4-35.0) H 09/11/24 03:30
Vital Signs
Vital Signs
Temp Pulse Resp BP Pulse Ox
97.9 F 88 16 119/95 97
09/15/24 00:12 09/15/24 00:00 09/15/24 00:12 09/14/24 20:30 09/15/24 00:12
CT Intake/Output/Weight
09/14/24 09/14/24 09/15/24
06:59 18:59 06:59
Intake Total 800 / 1770
Balance 800 / -615
SaO2: 97 (RA)
Physical Exam
-
General: Awake, Oriented and AOx3
Cardiovascular: Regular rate & rhythm, No Murmurs, No Rub and No Gallop
Respiratory: Decreased Breath Sounds (at bases, otherwise clear)
Sternum: Stable
Incision: Clean, Dry, Intact and Dressing Intact
Extremities: Other (+trace edema)
Data Reviewed
-
Lab Results: Results Reviewed
Medications: Active Meds Reviewed
Chest X-Ray: Report Reviewed and Image Reviewed
ECG: Report Reviewed and Image Reviewed
[2024-09-15] MEDS: ROXICODONE 5 MG PO (03:20)
[2024-09-15 03:36] VITALS: BP 120/87
[2024-09-15 03:54] LABS: Hematocrit 33.6 % (39.0-52.0); Hemoglobin 10.7 g/dL (13.0-18.0); Mean Corp Hgb Conc. 31.8 g/dL (33.0-37.0); Mean Corpuscular Hgb 28.6 pg (27.0-31.0); Mean Corpuscular Volume 89.8 fL (80.0-94.0); Mean Platelet Volume 11.5 fL (7.4-10.4); Platelet Count 141 10^3/uL (130-400); Red Blood Cell Count 3.74 10^6/uL (4.70-6.10); Red Cell Dist. Width 13.6 % (11.5-14.5); White Blood Cell Count 8.7 10^3/uL (4.8-10.8)
[2024-09-15 03:59] LABS: Ionized Calcium 1.16 mMOL/L (1.15-1.33)
--- NOTE | 2024-09-15 04:00 | PTCARENOTE ---
labs drawn and sent . no change in assessment .
[2024-09-15 04:08] LABS: Blood Urea Nitrogen 22 mg/dl (9-20); Calcium 8.8 mg/dl (8.4-10.2); Carbon Dioxide 27 mmol/L (22-30); Chloride 101 mmol/L (98-107); Estimated Creatinine Clearance 116 ml/min; Glucose 141 mg/dl (70-99); Magnesium 2.2 mg/dl (1.6-2.3); Sodium 134 mmol/L (135-145); eGFR > 60.00
[2024-09-15 06:00] VITALS: BMI 37.4
[2024-09-15] MEDS: CALCIUM GLUCONATE 100 IV (06:12)
[2024-09-15] MEDS: TYLENOL PO (07:14)
[2024-09-15] MEDS: NOVOLOG FLEXPEN-MODERATE RESISTANCE SC (08:00)
--- NOTE | 2024-09-15 08:00 | PTCARENOTE ---
Resumed care of patient from previous RN. AAOx3, VSS. SR with PVCs HR 70s. VSS. Self care. occasional productive cough. 96% RA. is 2000. +1-2 lower extrem edema. pulses weakly palpable. BRP. +bs. Will continue to monitor.
--- NOTE | 2024-09-15 08:12 | W.DCSUMMARY ---
Discharge Summary
Discharge Data
Date of Admission: 09/09/24
Date of Discharge: 09/15/24
Total time spent discharging patient (in min): 35
-
Pending Results: No
Hospital Course
Primary care physician:
Dr. Mcqueen
Outpatient desk officer:
Dr. Wallace
Inpatient consultants:
CBC, railroad commissioner
Procedures:
1. CABG x 3 (TRE to LAD, GSV to D1, RA to OM1 (cephalad branch))
Primary Diagnosis:
1. Multivessel coronary artery disease including left main disease, complete total occlusion of right coronary artery.
Secondary Diagnoses:
1. Acute postop hypervolemia
2. Hypertension
3. Hyperlipidemia
4. Obesity
5. Prediabetes with a hemoglobin A1c of 6.3
6. Anxiety
7. Heart failure with reduced ejection fraction
HPI: 59-year-old male with shortness of breath and chest pain presented to [facility] on 09/09 was found to have an NSTEMI. Left heart cath revealed severe multivessel disease and echocardiogram revealed an ejection fraction of 32% with
stage II diastolic dysfunction. CT surgery was consulted for CABG evaluation and was taken to the OR on 09/11.
Hospital course: Patient was admitted on 09/09 with an NSTEMI and was subsequently taken to the [facility] where multivessel disease was found. Preop CT surgery was started and patient was taken to the OR on 09/11. On 09/11 postoperative day 0 patient
returned to the CVICU for the remainder of his recovery. Upon arrival patient was on dobutamine, Levophed, insulin, Precedex, and Cardizem infusions and was mildly hypoxic and FiO2 was at 70% PEEP was increased to 8 and he was given a DuoNeb. He
slowly improved and eventually was weaned down to 5 of PEEP and 40%. Precedex was weaned off and patient was extubated by 1829. Patient initially was on a Cardizem infusion for his radial artery graft however due to his low EF he was switched to
Cardene. Dobutamine was weaned from 5 to 3 mcg/kg/min due to his tachycardia. On 09/12 postoperative day 1, patient was weaned off dobutamine and transitioned off his insulin drip to sliding scale insulin. Patient is arterial line and Check-Antonia
catheter was removed and he was diuresed with 20 mg of IV Lasix. On 09/13 postoperative day 2 patient was started on low-dose metoprolol 12.5 mg twice daily which she tolerated well and he was also diuresed with 40 mg of IV Lasix twice daily. On
09/14 postoperative day 3 patient was diuresed with 40 mg of IV Lasix and he was started on lisinopril 2.5 mg which she tolerated well. Patient's Cordis catheter was also removed. On 09/15 postoperative day 4 patient's metoprolol XL was increased to
25 mg twice daily and his lisinopril has been scheduled for 2.5 mg at bedtime. 2 view chest x-ray remained stable and he will be discharged home with 40 mg p.o. Lasix for 1 week. Cardiology will uptitrate lisinopril as tolerated outpatient. For
amlodipine, patient will be on it for 1 year for radial artery spasm prevention.
Home medication changes:
see below
Discharge Plan
-
Patient Disposition: Home (Routine Discharge)
Discharge Diagnosis/Procedures: NSTEMI
CABG x 3 (TRE to LAD, GSV to D1, RA to OM1 (cephalad branch))
Condition: Good
Diet: Low Cholesterol and 2 Gram Sodium
Activity: No strenuous activity
Driving Restrictions: No driving for 24 hours
Bathing Restrictions: OK to Shower
Blood Work: BMP in 1 week
Other Services: Cardiac Rehab
Specialty Instructions: Weigh Daily- Call MD for wt gain/loss 3 lbs overnight/5 lbs in 1 week
Activity Restrictions/Additional Instructions:
ACTIVITY:
-No strenuous activity: no heavy lifting, pushing, pulling anything over 15 pounds for one month
-continue to use stairs as tolerated
DRIVING RESTRICTIONS:
-No driving for one month or until approved by your surgeon
WOUND CARE:
-Shower daily. Use soap & water.
-No lotions, creams or powders on incision area.
DIET:
-continue a low fat/low cholesterol diet.
-IF you are diabetic, continue carb controlled diet.
CARDIAC REHAB:
-Please make appointment to start in 5-6 weeks with your local hospital program. (See Cardiac Rehabilitation Discharge Booklet).
SPECIALTY INSTRUCTIONS:
-Weigh yourself daily. Call your physician for any weight gain/loss of 3 lbs overnight or 5 lbs in one week.
-REPORT any clicking noise or uneven appearance of your sternum to your surgeon immediately.
-If you smoke, you are instructed to quit. The [place] smoking [employer] phone number is [phone]
Stand Alone Forms: DC Instructions- Cath/EP Lab
Referrals:
CT Transitional Care Nurse [Outside] (The Cardiothoracic Transitional Care Nurse will call you to set up a visit in 1-2 days.)
Ariella Maldonado CRNP [Specified Professional Personl] - 10/31/24 10:40 am
Anthony Mcqueen MD [Family Provider] -
Levy Augustine MD [Active] - 10/07/24 3:00 pm
Additional Discharge Medication Instructions: You will be on norvasc for 1 year for radial artery protection
Please weigh yourself everyday while on lasix.
Prescriptions:
New
atorvastatin 80 mg Tablet
80 mg PO QPM Qty: 60 1RF
amlodipine 2.5 mg Tablet
2.5 mg PO DAILY Qty: 90 3RF
clopidogrel 75 mg Tablet
75 mg PO DAILY Qty: 90 3RF
pantoprazole 40 mg Tablet,Delayed Release (Dr/Ec)
40 mg PO DAILY Qty: 90 3RF
aspirin 81 mg Tablet,Chewable
81 mg PO DAILY Qty: 0 0RF
gabapentin 100 mg Capsule
100 mg PO TID Qty: 30 0RF
metoprolol succinate 25 mg Tablet Extended Release 24 Hr
25 mg PO BID Qty: 60 1RF
lisinopril 2.5 mg Tablet
2.5 mg PO HS Qty: 30 1RF
oxycodone 5 mg Tablet
2.5 mg PO Q4HPRN PRN (Reason: severe pain) Qty: 15 0RF
furosemide [Lasix] 40 mg tablet
40 mg PO DAILY Qty: 7 0RF
potassium chloride 10 mEq capsule, extended release
20 meq PO DAILY Qty: 14 0RF
Rx Instructions:
Only take while on lasix
Continued
diphenhydramine HCl [Benadryl] 25 mg Capsule
25 mg PO HSPRN PRN (Reason: ITCHING)
acetaminophen 500 mg Tablet
1,000 mg PO Q6HPRN PRN (Reason: MILD PAIN)
bisacodyl 5 mg Tablet
5 mg PO HS Qty: 0 0RF
Discontinued
ibuprofen [Advil] 200 mg Tablet
600 mg PO Q6HPRN PRN (Reason: HEADACHE)
Advil PM Liqui-Gels 200-25 mg Capsule
2 cap PO HSPRN PRN (Reason: SLEEP)
Discharge Orders:
Discharge Patient (As Directed); Ordered 09/15/24
Ordered By: Elisabeth De La Fuente
Care Plan Goals
Care Plan Goals:
Problem: Readiness for enhanced knowledge related to diagnosis and treatment plan
Goal: Understand your diagnosis and treatment plan needs, including medications if applicable.
Instructions: Know your diagnosis, underlying causes and treatment plan options, including medications if applicable. Consult with your health care team to learn about your diagnosis and treatment plan, including medications if applicable.
Discharge Date and Time
Print Language: SALVADOREAN
[2024-09-15 08:20] VITALS: BP 120/76
[2024-09-15] MEDS: MAGNESIUM OXIDE 500 MG PO (08:20)
[2024-09-15] MEDS: PROTONIX 40 MG PO (08:22)
[2024-09-15] MEDS: LOW STRENGTH ASPIRIN 81 MG PO (08:22)
[2024-09-15] MEDS: PLAVIX 75 MG PO (08:22)
[2024-09-15] MEDS: PACERONE 400 MG PO (08:23)
[2024-09-15] MEDS: MUCINEX 600 MG PO (08:23)
[2024-09-15] MEDS: NEURONTIN 100 MG PO (08:24)
[2024-09-15] MEDS: NORVASC 2.5 MG PO (08:24)
[2024-09-15] MEDS: TOPROL XL 25 MG PO (08:24)
[2024-09-15] MEDS: SENOKOT-S 1 TABLET PO (08:24)
[2024-09-15] MEDS: LASIX 40 MG IV (08:25)
--- NOTE | 2024-09-15 08:27 | W.PN.CD ---
Today's Communication / Plan
-
stable remains in sinus
Will continue to titrate meds for GDMT.
Defer to CT surgery regarding the length of time he will be on amlodipine
-tolerating lisinopril 2.5 mg a day. We can titrate as outpatient and possible transition to Entresto. May be easier when he after he is off amlodipine
Impression / Plan
-
-CABG x 3 (TRE to LAD, GSV to D1, RA to OM1 ))- 09/11/24
-Off pressors
-Remains in sinus rhythm.
-Continue postop care as directed by CT surgery
NSTEMI
-Trop peak 2.080
-Cath with 80% LMCA and RCA SLEEPING CAR PORTER,
-CABG x 3 (TRE to LAD, GSV to D1, RA to OM1 ))- 09/11/24
-Continue asa/statin/bb
-
Acute on chronic systolic heart failure secondary to ischemic cardiomyopathy
HFrEF. Preoperative echo with estimated ejection fraction of 32% postoperative FRANCIA with estimated ejection fraction 25 to 30%
-Continue to monitor postop
-Will continue to assess ability to add on GDMT as patient recovers from CABG
-Currently on Toprol and also on low-dose amlodipine (initiated by CT surgery due to radial graft)
-tolerating lisinopril 2.5 mg a day can titrate as outpatient and also will be able to tolerate more meds and possible transition to Entresto after he is off amlodipine
Hyperlipidemia:
-high dose statin and ezetimibe
-eventual goal <55, may require other agents
Morbid obesity: will need weight loss; GLP1ra would be idea but will be challenging given lack of insurance
Social history. Patient very concerned with cost. CM involved.
Subjective:
Awake alert postop CABG. Remains on low-dose dobutamine
Data:
Cath 08/13/24:
HEMODYNAMIC DATA
LV 113/9 (EDP 13) mmHg
AO 109/84 (mean 93) mmHg
CORONARY ANGIOGRAPHY
Dominance: right
LM: 80% distal shaft focal stenosis.
LAD: Large vessel giving rise to a large branching D1 and wrapping around the apex. There are serial 40% stenoses in the mid vessel and a long 90% stenosis in the distal vessel. There is diffuse moderate disease throughout the lower branch of the
D1.
LCx: Moderate caliber vessel giving rise to a moderate caliber branching OM1, small LPL1, and moderate caliber LPL2. There is a 40% stenosis in the OM1 before the branch. There is otherwise mild non-obstructive disease.
RCA: Proximal SLEEPING CAR PORTER. The RPDA fills via eluf-so-stbze collaterals from the apical LAD.
CONCLUSIONS
1. severe multivessel coronary artery disease as described with RCA SLEEPING CAR PORTER and high-grade left main stenosis
2. mildly elevated LV filling pressure and no aortic stenosis
TTE 09/10/24
Mild biventricular dilation with Moderately reduced left ventricular systolic
function.
Left ventricular ejection fraction is 32% by volumetric assessment.
Moral right ventricular systolic function.
Stage II diastolic dysfunction suggestive of abnormal relaxation and increased
filling pressures.
No significant valvular disease.
Mild pulmonary hypertension.
Compared to the prior echo on 01/18/2018, systolic dysfunction is new, the
ventricles are now dilated, and mild pulmonary hypertension is now seen.
Physical Exam
Vital Signs/Labs
Vital Signs
Temp Pulse Resp BP Pulse Ox
98.0 F 80 16 120/87 95
09/15/24 04:00 09/15/24 05:00 09/15/24 04:00 09/15/24 03:36 09/15/24 04:00
09/14/24 09/15/24 09/16/24
06:59 06:59 06:59
Actual Weight 122.3 kg 121.7 kg
09/15/24 03:30
09/15/24 03:30
PT 16.2 Sec (11.4-14.6) H 09/11/24 13:52
INR 1.25 09/11/24 13:52
APTT 75.7 Sec (23.4-35.0) H 09/11/24 03:30
Magnesium 2.2 mg/dl (1.6-2.3) 09/15/24 03:30
Triglycerides 205 mg/dl (10-149) H 09/09/24 11:19
LDL Cholesterol, Calc 190 mg/dl 09/09/24 11:19
VLDL Cholesterol, Calc 41 mg/dl (0-30) H 09/09/24 11:19
HDL Cholesterol 45 mg/dl 09/09/24 11:19
09/09/24
11:19
Uyx-I-Pntbbtizejb Pept 1830
Physical Exam
Constitutional: No acute distress
EENT: Anicteric
Cardiovascular: Rhythm & rate is regular
Respiratory: Wheeze Absent
GI: Soft, Non tender and Normal bowel sounds
Neuro/Psych: Alert and Oriented
Data Reviewed
-
Date of Service: September 15, 2024
Medical Decision Making: Reviewed Test Results
Medical Tests (PFT, Pathology etc): Report Reviewed by me
Labs: Labs Reviewed by me
[2024-09-15] MEDS: BACTROBAN 2% OINTMENT 1 APPLIC NASAL (08:28)
[2024-09-15] MEDS: NSS IV (08:30)
[2024-09-15] MEDS: KCL 40 MEQ PO (08:37)
[2024-09-15 10:05] VITALS: BP 113/67
[2024-09-15 10:19] VITALS: BP 120/75
[2024-09-15 10:22] VITALS: BP 113/67; BP 120/75; PULSE 89; O2SAT 100; O2SAT 97
--- NOTE | 2024-09-15 12:55 | PTCARENOTE ---
showered. d/c instructions gone over with patient and his son at bedside. all questions answered. left with all belongings in wheelchair.
== END 2024-09-15 13:31 | disposition home or self-care (01) | DRG 233 ==
LOC: CVICU 14:07
PROVIDERS: Anesthesiology; Clinical Nurse Specialist Acute Care; Clinical Nurse Specialist Family Health; Emergency Medicine; Nurse Practitioner; Physician Assistant Medical; Student in an Organized Health Care Education/Training Program; ADMITTING PHYSICIAN Hospitalist; ATTENDING PHYSICIAN Thoracic Surgery (Cardiothoracic Vascular Surgery); CONSULT PHYSICIAN Internal Medicine Cardiovascular Disease; CONSULT PHYSICIAN Internal Medicine Critical Care Medicine; EMERGENCY PHYSICIAN Emergency Medicine; FAMILY PHYSICIAN Family Medicine
PROC: B2151ZZ Fluoroscopy of Left Heart using Low Osmolar Contrast (ICD-10-PCS; 2024-09-09)
PROC: 4A023N7 Measurement of Cardiac Sampling and Pressure, Left Heart, Percutaneous Approach (ICD-10-PCS; 2024-09-09)
PROC: B2111ZZ Fluoroscopy of Multiple Coronary Arteries using Low Osmolar Contrast (ICD-10-PCS; 2024-09-09)
PROC: 03BC4ZZ Excision of Left Radial Artery, Percutaneous Endoscopic Approach (ICD-10-PCS; 2024-09-11)
PROC: 5A1221Z Performance of Cardiac Output, Continuous (ICD-10-PCS; 2024-09-11)
PROC: 021009W Bypass Coronary Artery, One Artery from Aorta with Autologous Venous Tissue, Open Approach (ICD-10-PCS; 2024-09-11)
PROC: 02100ZC Bypass Coronary Artery, One Artery from Thoracic Artery, Open Approach (ICD-10-PCS; 2024-09-11)
PROC: 06BP4ZZ Excision of Right Saphenous Vein, Percutaneous Endoscopic Approach (ICD-10-PCS; 2024-09-11)
PROC: 02100AW Bypass Coronary Artery, One Artery from Aorta with Autologous Arterial Tissue, Open Approach (ICD-10-PCS; 2024-09-11)
PROC: B24BZZ4 Ultrasonography of Heart with Aorta, Transesophageal (ICD-10-PCS; 2024-09-11)
DX: I21.4 Non-ST elevation (NSTEMI) myocardial infarction (principal); I50.23 Acute on chronic systolic (congestive) heart failure; J95.1 Acute pulmonary insufficiency following thoracic surgery; D62 Acute posthemorrhagic anemia; J98.11 Atelectasis; E87.1 Hypo-osmolality and hyponatremia; I31.8 Other specified diseases of pericardium; I25.10 Atherosclerotic heart disease of native coronary artery without angina pectoris; F41.9 Anxiety disorder, unspecified; I11.0 Hypertensive heart disease with heart failure; E78.00 Pure hypercholesterolemia, unspecified; M51.16 Intervertebral disc disorders with radiculopathy, lumbar region; J45.909 Unspecified asthma, uncomplicated; K21.9 Gastro-esophageal reflux disease without esophagitis; E66.811 Obesity, class 1; G47.00 Insomnia, unspecified; G89.29 Other chronic pain; I25.5 Ischemic cardiomyopathy; R73.03 Prediabetes; D69.59 Other secondary thrombocytopenia; E86.1 Hypovolemia; Y83.2 Surgical operation with anastomosis, bypass or graft as the cause of abnormal reaction of the patient, or of later complication, without mention of misadventure at the time of the procedure; Z56.0 Unemployment, unspecified; Z59.71 Insufficient health insurance coverage; Z68.37 Body mass index [BMI] 37.0-37.9, adult; Z82.49 Family history of ischemic heart disease and other diseases of the circulatory system
CPT/HCPCS: 71045; 71046; 71250; 76937; 80048; 80053; 80061; 81003; 81015; 82330; 82565; 82607; 82805; 82810; 82947; 82962; 83036; 83735; 83880; 84132; 84302; 84443; 84484; 84520; 85014; 85018; 85025; 85027; 85049; 85610; 85730; 86803; 86850; 86900; 86901; 86920; 93005; 93306; 93312; 93320; 93325; 93458; 93880; 93923; 93931; 93970; 94002; 94640; 96374; 96376; 99152; 99153; 99291; C1713; C1894; P9047; Q9967

== ENCOUNTER → 2024-12-03 15:18 | Outpatient (REF) | payer OTHER, SELFPAY | LOC: RCS 15:18 | PROVIDERS: ATTENDING PHYSICIAN Internal Medicine Cardiovascular Disease; FAMILY PHYSICIAN Family Medicine | DX: I25.10 Atherosclerotic heart disease of native coronary artery without angina pectoris (principal); I25.5 Ischemic cardiomyopathy; E78.5 Hyperlipidemia, unspecified; I50.20 Unspecified systolic (congestive) heart failure | CPT/HCPCS: 93306 ==

== ENCOUNTER 2025-01-04 21:43 | Emergency (ER) | payer OTHER, SELFPAY ==
[2025-01-04 21:47] VITALS: BP 150/103
[2025-01-04 22:23] LABS: Hematocrit 44.8 % (39.0-52.0); Hemoglobin 14.8 g/dL (13.0-18.0); Mean Corp Hgb Conc. 33.0 g/dL (33.0-37.0); Mean Corpuscular Volume 85.2 fL (80.0-94.0); Nucleated Red Blood Cells % 0 % (-); Platelet Count 170 10^3/uL (130-400); Red Cell Dist. Width 13.9 % (11.5-14.5)
[2025-01-04 22:31] LABS: INR 0.97; PT 13.2 Sec (11.4-14.6)
[2025-01-04 22:32] LABS: ALT (SGPT) 18 U/L (0-50); AST (SGOT) 18 U/L (17-59); Albumin 4.2 g/dl (3.5-5.0); Alkaline Phosphatase 66 U/L (38-126); Blood Urea Nitrogen 16 mg/dl (9-20); Calcium 9.7 mg/dl (8.4-10.2); Carbon Dioxide 29 mmol/L (22-30); Chloride 105 mmol/L (98-107); Glucose 135 mg/dl (70-99); Potassium 4.1 mmol/L (3.5-5.1); Sodium 138 mmol/L (135-145); Total Protein 6.3 g/dl (6.3-8.2); eGFR > 60.00
[2025-01-04 22:44] LABS: Troponin I < 0.012 ng/ml
[2025-01-04 23:35] VITALS: BP 143/94
[2025-01-05] VITALS: BP 132/87
[2025-01-05 01:00] VITALS: BP 125/91
[2025-01-05 02:00] VITALS: BP 132/88
[2025-01-05 02:16] LABS: Troponin I < 0.012 ng/ml
[2025-01-05 03:19] VITALS: BP 131/77
[2025-01-05 04:00] VITALS: BP 125/84
[2025-01-05 04:01] LABS: Troponin I < 0.012 ng/ml
--- NOTE | 2025-01-05 04:15 | ED.GENMED ---
History of Present Illness
General
Chief Complaint: Chest Pain
Source: patient
Time Seen by Provider: 01/05/25 01:14
History of Present Illness
History of Present Illness:
Note:
CHIEF COMPLAINT(S)
Acute chest pain and palpitations.
HISTORY OF PRESENT ILLNESS
The patient is a 59-year-old male who presented with sharp chest pains occurring around 9:20 PM, accompanied by notifications from his watch indicating his pulse was below 40 beats per minute for approximately ten minutes. The patient described the
chest pain as sharp and centralized, leading to increased concern due to his recent surgical history. He mentioned having undergone a triple bypass surgery three months ago and was uncertain if the pain was related to his surgical site, stating,
'its always hard to tell. Is it just the bones reconnecting? Is it the plate or whatever?' Symptoms prompted the patient to seek medical evaluation due to his recent cardiac history.
He is under the care of a buckle strap puncher, [Anonymous]. The patient described himself as pre-diabetic and is unsure if he is currently on blood thinners. He reported feeling better overall and less concerned after discussions here. The initial set
of cardiac enzyme tests was normal, and a repeat test was planned for six hours from the onset of symptoms to rule out myocardial infarction. The patients condition as of now seems stable, and he mentioned feeling better knowing that the medical
team is not overly concerned. He is wary of more than usual swelling in the legs if not wearing compression socks and occasionally experiences palpitations since the surgery.
PAST MEDICAL HISTORY
The patient underwent a triple bypass surgery three months ago.
PROBLEM LIST
- Acute chest pain
- Palpitations
- Recent history of coronary artery bypass grafting
PLAN
- Repeat cardiac enzyme tests approximately six hours following symptom onset.
- Monitor vital signs and rhythm for any significant changes.
- Discuss the findings with the patient to ensure understanding and provide reassurance.
- Encourage the patient to follow up with his buckle strap puncher as scheduled or sooner if symptoms worsen.
- Consider discussing the significance of consistent use of prescribed medications, including any anticoagulants, during the follow-up.
DIFFERENTIAL DIAGNOSIS
The Differential Diagnosis includes, in no particular order and is not limited to:
1. Myocardial infarction
2. Post-surgical pain syndrome
3. Arrhythmia due to ventricular rhythm
4. Pericarditis
5. Costochondritis
6. Gastroesophageal reflux disease
7. Anxiety attack
8. Pulmonary embolism
9. Aortic dissection
10. Pneumothorax
Disposition:
SUMMARY OF ENCOUNTER
A 59-year-old male presented to the emergency department with acute chest pain and palpitations that resolved prior to arrival. He has a history of triple bypass surgery three months ago and is under the care of a buckle strap puncher. Upon examination in
the emergency department, the patient was symptom-free, and all initial assessments, including chest x-ray and EKG, showed no ischemia. Cardiac enzyme tests showed negative troponins, helping to rule out myocardial infarction.
DISPOSITION
Discharge.
PLAN
- Continue monitoring vital signs and rhythm for significant changes.
- Patient to follow up with his buckle strap puncher, Dr. Farley, as scheduled or sooner if symptoms worsen.
- Advise use of compression socks if swelling in legs persists.
INDEPENDENT REVIEW OF LABS AND INTERPRETATION OF TESTS
My independent review of EKG indicates no signs of ischemia.
My independent review of cardiac enzyme tests indicates negative troponins, ruling out acute myocardial infarction.
MEDICAL DECISION MAKING
- Number and Complexity of Problems Addressed: Chronic conditions affecting care (recent history of coronary artery bypass grafting, acute chest pain, palpitations). Differential Diagnosis included myocardial infarction, post-surgical pain syndrome,
arrhythmia, pericarditis, costochondritis, gastroesophageal reflux disease, anxiety attack, pulmonary embolism, aortic dissection, pneumothorax.
- Data:
Category 1: Chest x-ray reviewed as normal.
Category 2: My independent interpretation of EKG indicates no ischemia.
Category 3: Discussed with buckle strap puncher, follow-up care under Dr. Farley advised.
- Risk: Consideration of Admission/Observation: Escalation of care including admission/observation was considered given the complexity and risk of the patients presenting complaint and underlying comorbidities. However, ultimately, I feel the
patient is safe for outpatient management with close follow-up. Reasoning: Work-up is reassuring, does not reveal any acute life/organ threatening processes, patients symptoms well controlled upon reevaluation, reexamination is reassuring, vitals
are stable, and he is reliable for follow-up.
DIAGNOSIS
1. Acute Chest Pain - R07.9
2. Palpitations - R00.2
3. History of Coronary Artery Bypass Grafting - Z95.1
Past History
Past History
ED Past Medical History: Asthma, HTN and Psychiatric (Anxiety/depression)
ED Past Surgical History: Appendectomy, Orthopedic (left hand surgery) and Other (Hernia repair)
Social History
Tobacco: Non-smoker
Alcohol: Occasional
Drug: None
Personal:
Living: with family (Resides with his teenage son)
Employment: Employed
Family History
Family History: Hypertension and Other
Phy Exam
General Physical Exam
General Presentation: well appearing and no apparent distress
General Skin: warm and dry
General Habitus: normal
General Mental: alert
General Hydration: appears well hydrated
ENT Exam
ENT Exam: EOMI, pharynx normal, neck supple and normocephalic
Eye Exam
Eye Exam: PERRL, cornea clear and conjunctiva normal
Cardiovascular Exam
Cardiovascular Exam: regular rate/rhythm, no edema, no murmur, normal peripheral pulses and other (Sternotomy scar)
Pulmonary Exam
Pulmonary Exam: lungs clear, no respiratory distress, no rales, no crackles, no rhonchi, no stridor, no wheezing and no cough
Gastrointestinal Exam
Gastrointestinal Exam: normal bowel sounds, non tender, soft, no organomegaly, no pulsatile mass and non distended
Neurological Exam
Neurological Exam: alert, oriented x3, no motor deficits and speech normal
Musculoskeletal Exam
Musculoskeletal Exam: full ROM and no edema
Skin Exam
Skin Exam: normal color, warm/dry, no rash and no petechia
Psychiatric Exam
Psychiatric Exam: normal mood/affect
Scores
Heart Score for Chest Pain Patients
STEMI patient?: No
History: Slightly or Non-Suspicious
ECG: Normal
Age: >45 - <65 years
Risk Factors: >/= 3 Risk Factors or History of CAD
Troponin: </= Normal Limit
Heart Score for Chest Pain Patients: 3
Heart Score Risk: 2.5% MACE over next 6 weeks
Course
Orders/Labs/Results
Orders:
Orders
01/04/25 21:49
Electrocardiogram (*1) Urgent
Reason for Study: Chest Pain
Cardiac Monitoring- Treatment ONCE
EKG- Treatment ONCE
IV Insert/Care/Rem.- Treatment PRN
O2 Therapy [RESP] Urgent
Titrate/Wean O2 to maintain O2 sat greater than (%): 90
Special Instructions: Maintain sats >/=90%
Pulse Ox/spot Check [RESP] Urgent
Quantity: 1
Special Instructions: ON ROOM AIR
01/04/25 22:12
Complete Blood Count/With Diff Urgent
Comprehensive Metabolic Panel Urgent
Prothrombin Time Urgent
Troponin I Urgent
01/05/25 01:31
EKG- Treatment ONCE
01/05/25 01:33
CR Chest - 2 Views Urgent
Comment:
Reason For Exam: chest pain
01/05/25 01:45
Troponin I Urgent
01/05/25 03:19
Troponin I Urgent
01/05/25 03:31
Electrocardiogram (*1) Urgent
Reason for Study: Chest Pain
Abnormal Lab Results
01/04/25
22:12
MPV 10.5 H fL
(7.4-10.4)
Eosinophils % 6.9 H %
(0-6)
Glucose 135 H mg/dl
(70-99)
01/04/25 22:12
01/04/25 22:12
Vital Signs
Initial and Last Documented VS:
Initial Vital Signs
Temp Pulse Resp BP Pulse Ox
97.6 F 91 16 150/103 98
01/04/25 21:47 01/04/25 21:47 01/04/25 21:47 01/04/25 21:47 01/04/25 21:47
Last Documented Vital Signs
Temp Pulse Resp BP Pulse Ox
97.6 F 83 18 125/84 97
01/04/25 21:47 01/05/25 04:15 01/05/25 04:15 01/05/25 04:00 01/05/25 04:18
*Pulse Oximetry
SaO2: 97
Oxygen Mode of Delivery: Room air
Patient hypoxic: no
*Critical Care Note
Total Time (30-74mins, 75-104mins- exclusive of procedures): Not Applicable
ED Attending Note
-
Portions of this chart may have been created with voice recognition software.� Occasional wrong word or��sound alike� substitutions may have occurred due to the inherent limitations of voice recognition software.
Discharge Plan
Departure
Patient Disposition: Home (Routine Discharge)
Date of Disposition: 01/05/25
Time of Disposition: 04:15
Patient with high blood pressure during this ER visit?: Yes
Discharge Problem:
Chest pain
Instructions: Chest Pain CBC Follow Up, BLOOD PRESSURE
Prescriptions:
No Action
diphenhydramine HCl [Benadryl] 25 mg Capsule
25 mg PO HSPRN PRN (Reason: ITCHING)
acetaminophen 500 mg Tablet
1,000 mg PO Q6HPRN PRN (Reason: MILD PAIN)
atorvastatin 80 mg Tablet
80 mg PO QPM Qty: 60 1RF
amlodipine 2.5 mg Tablet
2.5 mg PO DAILY Qty: 90 3RF
clopidogrel 75 mg Tablet
75 mg PO DAILY Qty: 90 3RF
pantoprazole 40 mg Tablet,Delayed Release (Dr/Ec)
40 mg PO DAILY Qty: 90 3RF
aspirin 81 mg Tablet,Chewable
81 mg PO DAILY Qty: 0 0RF
gabapentin 100 mg Capsule
100 mg PO TID Qty: 30 0RF
metoprolol succinate 25 mg Tablet Extended Release 24 Hr
25 mg PO BID Qty: 60 1RF
lisinopril 2.5 mg Tablet
2.5 mg PO HS Qty: 30 1RF
oxycodone 5 mg Tablet
2.5 mg PO Q4HPRN PRN (Reason: severe pain) Qty: 15 0RF
bisacodyl 5 mg Tablet
5 mg PO HS Qty: 0 0RF
furosemide [Lasix] 40 mg tablet
40 mg PO DAILY Qty: 7 0RF
potassium chloride 10 mEq capsule, extended release
20 meq PO DAILY Qty: 14 0RF
Rx Instructions:
Only take while on lasix
Referrals:
UNKNOWN - PT DOES,NOT KNOW [Family Provider]
Activity Restrictions/Additional Instructions:
Thank You for choosing [facility].
It was a pleasure meeting you and taking part in your care. We hope for your continued healing and wellness.
Please read discharge instructions in their entirety. However, they are for general education and may not describe your exact diagnosis at discharge. Information on your ER visit and medical conditions were discussed with you along with appropriate
follow up information...
If indicated, please take your medications as instructed and indicated on discharge paperwork.
Please schedule a follow up appointment as directed. Call to schedule an appointment
Please return to the emergency department with ANY change in, persisting, or worsening of symptoms. If any of your symptoms do not improve, or persist, or become more severe within 6-12 hours, please return to the emergency department for further
care.
Please return to the emergency department if you develop a headache, neck pain/stiffness, fever greater than 100.4F, chest pain, shortness of breath, persistent nausea, vomiting, slurred speech, difficulty walking, numbness/tingling, weakness, signs
of infection or any other symptoms that are worrisome to you.
If you have any questions or concerns please do not hesitate to call the Hospital at or E-mail me directly at [email or web address]
Interventions
Interventions:
*Risk Screen - Suicide Last Done: 01/04/25 21:47
*General Assessment Last Done: 01/04/25 21:47
*Neglect/Abuse Screening Last Done: 01/04/25 21:47
*ED- Fall Risk Assessment Last Done: 01/05/25 00:05
*ED COVID-19 Vaccine History Last Done: 01/04/25 23:41
*Nursing Disposition Last Done: 01/05/25 04:36
ED- Cardiac Assessment Last Done: 01/05/25 00:05
Discharge Date and Time
Discharge Date/Time: 01/05/25 04:41
Print Language: FRENCH
== END 2025-01-05 04:41 | disposition home or self-care (01) ==
LOC: EMR 21:43
PROVIDERS: Emergency Medicine; EMERGENCY PHYSICIAN Student in an Organized Health Care Education/Training Program
DX: R07.89 Other chest pain (principal); R00.2 Palpitations; I10 Essential (primary) hypertension; J45.909 Unspecified asthma, uncomplicated; F41.9 Anxiety disorder, unspecified; F32.A Depression, unspecified; Z95.1 Presence of aortocoronary bypass graft; Z79.82 Long term (current) use of aspirin; Z88.0 Allergy status to penicillin
CPT/HCPCS: 99285; 94760; 71046; 80053; 84484; 85025; 85610; 93005

== ENCOUNTER 2025-01-22 17:15 | Inpatient (IN) | payer OTHER, SELFPAY ==
[2025-01-22] VITALS (35 sets, daily range): BP systolic 95–130; BP diastolic 57–96; BMI 37.7
[2025-01-22] MEDS: VANCOCIN 530 MG IV (08:45)
[2025-01-22] MEDS: AZACTAM 2000 MG IV (09:02)
[2025-01-22] MEDS: STERILE WATER FOR INJECTION 10 ML IV (09:02)
--- NOTE | 2025-01-22 10:05 | ITS.EPS ---
Income Tax Expert - EPS Report
EPS
Procedure Report:
Electrophysiology study:
Mr. 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
systolic heart failure on GDMT with LVEF improved from 25% 5o 30-35% but had developed syncope and is here for EP evaluation and arrhythmia induction for electrophysiology (EP) study and if ventricular arrhythmia is inducible then possible ICD
placement.
Date of the Procedure:
01/22/2025
Indications: Tachycardia
Pre-Operative Diagnosis: History of ischemic cardiomyopathy with ventricular tachycardia and syncope
Post-Operative Diagnosis: Ventricular tachycardia
Procedure Performed: EP study with arrhythmia induction
Performing physician:
Stephanie Matthews MD
Anesthesia:
See anesthesia records
Detailed Description of the Procedure:
Written informed consent was obtained from the patient after a full explanation of the risks and benefits of the procedure including the risks of sedation and anesthesia.
The patient was brought to the electrophysiology laboratory in stable condition in fasting state. Continuous electrocardiographic and hemodynamic monitoring was initiated. The initial rhythm was normal sinus rhythm.
The procedure site was meticulously prepared with surgical scrub and allowed to dry with no pooling. Sterile draping was applied to cover the procedure site. The image intensifier was draped with sterile bag and positioned over the patient.
After infusion of local anesthetic, vascular access was obtained under ultrasound guidance and sheaths were placed over guide wire as detailed below.
Sheaths:
��������� 6Fr sheath in right femoral vein
��������� 6Fr sheath in right femoral vein
Catheters:
��������� 6Fr - Gali Quad-cath at RVa and RVOT
��������� 6Fr -CRD Quad-cath at HIS location and RA
Baseline intervals (milliseconds):
PP / RR interval (baseline cycle length): 680
SC duration: 184
QRS duration: 124
QT interval: 400
AH interval: 85
His duration: 12
HV interval: 58
Q onset to RVa: 0
Sinus Node Function:
Burst pacing was performed from the right atrium at varying cycle lengths to measure the sinus node recovery time (SNRT) and corrected sinus node recovery time (cSNRT). The sinus node functions are within acceptable normal range.
Atrioventricular Mejia Function:
Atrial stimulation with incremental pacing intervals was performed from the high right atrium (HRA) and right ventricular apex (RVa) and antegrade and retrograde atrioventricular (AV) block cycle lengths were determined. The antegrade AV Wenckebach
was noted at 580 msec.
Programmed atrial stimulation was performed with drive train of 600 msec followed by a single atrial extra-stimulus and the AV mejia and the atrial ERPs were determined. The AV mejia ERP was 600/200 msec and the atrial ERP was <600/200 msec.
There was normal decremental conduction noted through the AV node. The programmed stimuli showed no evidence of dual pathways or echo beats.
Ventricular stimulation showed no retrograde conduction through the AV.
The AV mejia functions are deemed within normal range and no sign of dual pathway noted.
Ventricular Function:
Single ventricular extrastimuli were delivered following drive train of 600 msec, the ventricular ERP was determined <200 msec. The ventricular electrical functions are within acceptable range.
Arrhythmia Induction:
Programmed stimulation including single, double and triple extrastimuli were delivered from the RVa. There was easily inducible non-sustained ventricular tachycardia with single and double extrastimuli.
The sustained VT was induced at 600/240/240/230 from RVOT and it was fast and sustained.
The EP study was positive for ventricular tachycardia induced with programmed stimulation.
Procedure End
Following the completion of the EP study, catheters were removed. The sheaths were removed and hemostasis achieved with manual compression.
Estimated Blood loss:
<5 cc
Specimens Removed:
None.
Implants / Devices:
None
Urine output:
None
Packs / Drains/ Tubes:
None
Instrument / Sponge Count Correct:
Yes
Complications of the Procedure:
None
Condition of Patient at Time of Transfer:
Hemodynamically stable with no neurological or vascular compromise.
Summary:
A positive electrophysiology study with induction of Ventricular tachycardia. With VT and cardiac arrest, ICD placement is recommended.
--- NOTE | 2025-01-22 10:20 | ITS.CL.ICD ---
Real Estate Coordinator - ICD
Implantable Cardioverter Defibrillator
Procedure Report:
Single Chamber Implantable Cardioverter Defibrillator (ICD) Placement:
Mr. 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
systolic heart failure on GDMT with LVEF improved from 25% to 30-35% but had developed syncope s/p EP study showing easily inducible VT and is recommended ICD placement.
Indications: Ventricular tachycardia. �
Date of the Procedure: 01/23/2024
Pre-Operative Diagnosis: Ischemic cardiomyopathy with ventricular tachycardia and syncope
Post-Operative Diagnosis: Ischemic cardiomyopathy with ventricular tachycardia and syncope
Procedure Performed: SINGLE CHAMBER IMPLANTABLE CARDIOVERRTER DEFIBRILLATOR IMPLANTATION
Performing physician:
Stephanie Matthews MD
Anesthesia:
See anesthesia records
Detailed Description of the Procedure:
The patient was identified using hospital identification and informed consent obtained for the procedure. The risks were explained including, but not limited to: Bleeding, infection, arrhythmia, stroke, vascular/cardiac/lung puncture, surgery,
pacemaker dependency/device malfunction. All questions were answered.
The patient was brought to the electrophysiology laboratory in stable condition in fasting state. Continuous electrocardiographic and hemodynamic monitoring was initiated. The initial rhythm was normal sinus.
The procedure site was meticulously prepared with surgical scrub and allowed to dry with no pooling. Sterile draping was applied to cover the procedure site. The image intensifier was draped with sterile bag and positioned over the patient.
The left infra-clavicular region was prepped and draped in the usual sterile fashion. Local anesthesia was administered subcutaneously using 1% lidocaine / epinephrine. The left cephalic vein cut down was performed, and vascular sheath was
introduced for lead access. The guide wire was advanced into the inferior vena cava. The right ventricular defibrillator lead was advanced into the RV cavity and secured in RV apical septal position with an active fixation technique. There was
excellent sensing, pacing, and impedance from the leads, with no diaphragmatic stimulation at 10 V output.�Bovie cautery, antibiotics, and fluoroscopy were used.
The sheath was withdrawn, and the thresholds remained acceptable. The lead was secured in position at the venous entry site with 0-silk. A pocket was fashioned contiguous to the incision. The electrode terminals were connected to the pulse
generator, which was placed into the pocket. The wound was irrigated thoroughly with antibiotic solution and closed in 3 layers using 2-0, V loc sutures followed by two layers of 4-0 Monocryl sutures. Steri-Strips and a bandage were applied
externally.�
Procedure End:
The procedure was tolerated well. A pressure bandage was applied to the incision area to be removed in a day.
Estimated Blood loss:
5 cc
Specimens Removed:
No cultures and no specimens were obtained. No intraoperative pathology was identified.
Urine output:
None
Packs / Drains/ Tubes:
None
Instrument / Sponge Count Correct:
Yes
Fluoro Time: (EP study and ICD)
1.4 min / 6.9 mGy
Complications of the Procedure:
None
Condition of Patient at Time of Transfer:
Hemodynamically stable with no neurological or vascular compromise.
Device information:�
Generator: efw-suhl; Model: [id number]; Serial # [id number]�
RV Lead: efw-suhl; Model: [id number]; Serial # [id number]
Measured data in the RV lead was sensing of 9.8 mV, impedance of 589ohms and threshold of 0.75 V at 0.4ms�
PROGRAMMING PARAMETERS:�
Brian parameter settings were VVI 50 bpm. �
����������� Rate Adaptive A-V Interval: Off
Tachy parameter settings:
����������� SVT discrimination: On
����������� AF/AFl: Off
����������� Wavelet: On
����������� SVT limit: 260 msec
����������� VT zone:
Slow VT: 162-188 bpm --> Monitor
����������������������� VT: /Fast VT: >188 bpm � ATP while charging then Shock� x6
�����������
Summary:
Successful implantation of MRI compatible single chamber Medtronic ICD
Results/Recommendations:
-Please follow up CXR�
1. Please provide patient with adequate pain control�
Instructions to be given to patient:�
- Please follow up with [facility] at [address] [place] [address] ([phone]) to get your wound checked within 7 days of your discharge.
- Do not wet incision site until after it is evaluated at cardiology clinic. No showers until then. Sponge baths are OK.�
- Allow 'steri strips' to fall off on their own�
- Do not lift left elbow above shoulder, particularly with sudden jerking movements, for 1 month�
- Do not lift anything weighing more than 5 pounds with the left arm for 1 month�
- If you notice any fevers, shortness of breath, lightheadedness, chest pain, or worsening swelling in the wound site, please contact the arrhythmia clinic, contact your road design engineer, or present to the hospital for evaluation.�
Stephanie Matthews MD
Electrophysiology
[2025-01-22] MEDS: TYLENOL 650 MG PO (12:03)
[2025-01-22] MEDS: PERCOCET 5/325 1 TABLET PO ×3 (14:19→23:32)
[2025-01-22] MEDS: LIPITOR 80 MG PO (18:22)
[2025-01-22] MEDS: TOPROL XL 25 MG PO (19:26)
--- NOTE | 2025-01-22 19:26 | PTCARENOTE ---
Pt received from recovery area post EPS showing inducible VT and ICD placement in left anterior chest. Dressing dry and intact, no sign of bleeding or hematoma. Pt OOB independently. Activity restrictions reviewed and understood. Telemetry shows
sinus rhythm with frequent PVC's and occasional bigeminy.
[2025-01-22] MEDS: ZESTRIL 5 MG PO (22:16)
[2025-01-22] MEDS: BENADRYL 25 MG PO (23:34)
--- NOTE | 2025-01-22 23:45 | PTCARENOTE ---
Patient received at change of shift out of bed to the chair. Left anterior chest wall incision with aquacell and pressure dressing C/D/I. JOURDAN remains in the immobilizer. Patient reports moderate incisional pain and left shoulder pain, PRN Percocet
given, see MAR. Sinus rhythm with PVCs on telemetry. Oxygen saturation 96-98% on room air. Plan of care discussed. Call townsend within reach. Care ongoing.
[2025-01-23 03:14] VITALS: BP 119/81
[2025-01-23 03:15] VITALS: BP 119/81
[2025-01-23 04:00] LABS: Hematocrit 42.9 % (39.0-52.0); Hemoglobin 13.5 g/dL (13.0-18.0); Mean Corp Hgb Conc. 31.5 g/dL (33.0-37.0); Mean Corpuscular Volume 88.5 fL (80.0-94.0); Platelet Count 148 10^3/uL (130-400); Red Cell Dist. Width 14.0 % (11.5-14.5)
[2025-01-23 04:16] LABS: ALT (SGPT) 19 U/L (0-50); AST (SGOT) 21 U/L (17-59); Albumin 3.5 g/dl (3.5-5.0); Alkaline Phosphatase 61 U/L (38-126); Blood Urea Nitrogen 16 mg/dl (9-20); Calcium 8.4 mg/dl (8.4-10.2); Carbon Dioxide 28 mmol/L (22-30); Chloride 106 mmol/L (98-107); Estimated Creatinine Clearance 97 ml/min; Glucose 151 mg/dl (70-99); Potassium 5.0 mmol/L (3.5-5.1); Sodium 137 mmol/L (135-145); Total Protein 5.3 g/dl (6.3-8.2); eGFR > 60.00
[2025-01-23 05:24] LABS: Hepatitis C Antibody Negative (Negative)
[2025-01-23] MEDS: PERCOCET 5/325 1 TABLET PO (05:25)
[2025-01-23 07:28] VITALS: BP 104/71
[2025-01-23] MEDS: ROXICODONE 2.5 MG PO (09:04)
[2025-01-23] MEDS: ZETIA 10 MG PO (09:06)
[2025-01-23] MEDS: PLAVIX 75 MG PO (09:07)
[2025-01-23] MEDS: TOPROL XL 25 MG PO (09:08)
[2025-01-23] MEDS: PROTONIX 40 MG PO (09:08)
[2025-01-23] MEDS: LOW STRENGTH ASPIRIN 81 MG PO (09:08)
--- NOTE | 2025-01-23 10:25 | CM ---
Chart reviewed. Patient OOB in the chair, independent of ADLS, lives with his adult son in a 3 [address], 3 [address]ELY[address], 0 DME. Plan is for the patient to return home. CM to follow
--- NOTE | 2025-01-23 10:44 | W.PN.CD ---
Today's Communication / Plan
-
- Stable for discharge home
- ICD interrogation today
Impression / Plan
-
Mr. 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
systolic heart failure on GDMT with LVEF improved from 25% to 30-35% but had developed syncope s/p EP study showing easily inducible VT s/p ICD placement 01/22/25
Ventricular tachycardia and syncope
- Highly suspicious for cardiac event
- s/p EP study and easily inducible VT
- s/p ICD single chamber.
- Pressure dressing removed.
CABG x 3 (TRE to LAD, GSV to D1, RA to OM1 ))- 09/11/24
-No ischemia.
Acute on chronic systolic heart failure secondary to ischemic cardiomyopathy
HFrEF.
On GDMT
-LVEF 30-35% - slightly improved after revascularization - 20%to 30-35%
Hyperlipidemia:
-high dose statin and ezetimibe
-eventual goal <55, may require other agents
Morbid obesity: will need weight loss; GLP1ra would be idea but will be challenging given lack of insurance
Social history. Patient very concerned with cost. CM involved.
Subjective:
Awake alert - pressure dressing removed
Data:
Cath 08/13/24:
HEMODYNAMIC DATA
LV 113/9 (EDP 13) mmHg
AO 109/84 (mean 93) mmHg
CORONARY ANGIOGRAPHY
Dominance: right
LM: 80% distal shaft focal stenosis.
LAD: Large vessel giving rise to a large branching D1 and wrapping around the apex. There are serial 40% stenoses in the mid vessel and a long 90% stenosis in the distal vessel. There is diffuse moderate disease throughout the lower branch of the
D1.
LCx: Moderate caliber vessel giving rise to a moderate caliber branching OM1, small LPL1, and moderate caliber LPL2. There is a 40% stenosis in the OM1 before the branch. There is otherwise mild non-obstructive disease.
RCA: Proximal COMPUTED TOMOGRAPHY TECHNOLOGIST. The RPDA fills via [id number] collaterals from the apical LAD.
CONCLUSIONS
1. severe multivessel coronary artery disease as described with RCA COMPUTED TOMOGRAPHY TECHNOLOGIST and high-grade left main stenosis
2. mildly elevated LV filling pressure and no aortic stenosis
TTE 09/10/24
Mild biventricular dilation with Moderately reduced left ventricular systolic
function.
Left ventricular ejection fraction is 32% by volumetric assessment.
Moral right ventricular systolic function.
Stage II diastolic dysfunction suggestive of abnormal relaxation and increased
filling pressures.
No significant valvular disease.
Mild pulmonary hypertension.
Compared to the prior echo on 01/18/2018, systolic dysfunction is new, the
ventricles are now dilated, and mild pulmonary hypertension is now seen.
Physical Exam
Vital Signs/Labs
Vital Signs
Temp Pulse Resp BP Pulse Ox
97.7 F 77 18 104/71 95
01/23/25 07:31 01/23/25 07:28 01/23/25 07:31 01/23/25 09:07 01/23/25 08:57
01/22/25 01/23/25 01/24/25
06:59 06:59 06:59
Actual Weight 113.9 kg
01/23/25 03:21
01/23/25 03:21
Magnesium Cancelled 01/22/25 06:00
Physical Exam
Constitutional: No acute distress and Comfortable
EENT: Anicteric and Moist mucous membranes
Cardiovascular: Rhythm & rate is regular, Pedal edema is absent and JVD pressure is normal
Respiratory: Respiratory effort normal, Lungs clear to auscul. and Wheeze Absent
GI: Soft, Distention absent, Non tender and Normal bowel sounds
Neuro/Psych: Alert, Oriented, AO x 3 and Motor deficits absent
Other: Cath Site and Cardiac Device Site
Data Reviewed
-
Date of Service: January 23, 2025
Medical Decision Making: Reviewed Test Results, Test Interpretation and Review of Case with other Provider
EKG: Tracing Personally Visualized and interpreted and Report Reviewed by me
Echo: Report Reviewed by me
X-Ray/CT/US/MRI/NUC/PET: Image Personally Visualized and interpreted
Medical Tests (PFT, Pathology etc): Discussed with Patient
Labs: Labs Reviewed by me
Old Records: Reviewed
--- NOTE | 2025-01-23 11:01 | W.DS.TRANS ---
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
-
Discharge Instructions:
Discharge Diagnosis/Procedures Procedure: Positive EP study with ICD
implantation (01/22/2025)
Ventricular tachycardia
Syncope with ischemic cardiomyopathy
Diet Low Cholesterol,2 Gram Sodium
Activity No strenuous activity
Additional Activity See attached instructions
Driving Restrictions No driving for 1 week
Bathing Restrictions OK to Shower
Specialty Instructions Weigh Daily
Instructions:
Stand-Alone Forms: DC Instructions- Cath/EP Lab
DC Inst - Implanted Device
Changes to Home Medications: No
Discharge Medications:
DC Medications w/original date entered in [facility]
acetaminophen 500 mg tablet 1,000 mg PO Q6HPRN PRN MILD PAIN 09/09/24
diphenhydramine HCl 25 mg capsule (Benadryl) 25 mg PO HSPRN PRN ITCHING 09/09/24
amlodipine 2.5 mg tablet 2.5 mg PO DAILY radial artery harvest #90 tabs 09/15/24
aspirin 81 mg chewable tablet 81 mg PO DAILY #0 tabs 09/15/24
atorvastatin 80 mg tablet 80 mg PO QPM High cholesterol #60 tabs 09/15/24
clopidogrel 75 mg tablet 75 mg PO DAILY graft patentcy #90 tabs 09/15/24
metoprolol succinate 25 mg tablet,extended release 24 hr 25 mg PO BID Blood pressure #60 tabs 09/15/24
oxycodone 5 mg tablet 2.5 mg (1/2 x 5 mg) PO Q4HPRN PRN severe pain #15 tabs 09/15/24
pantoprazole 40 mg tablet,delayed release 40 mg PO DAILY Gi prophylaxis #90 tabs 09/15/24
ezetimibe 10 mg tablet 10 mg PO DAILY 01/22/25
lisinopril 5 mg tablet 5 mg PO HS 01/22/25
Home Medication Changes
Pending Results: No
--- NOTE | 2025-01-23 11:06 | W.CARD.DEVCH ---
Cardiac Device Check
-
Device: Implanted Cardioverter-Defibrillator
Geographic Information System Analyst: [employer]
The patient's device was interrogated with assistance of the device sales representative printing followed by a complete physician review. The device had normal function. No abnormalities seen.
[2025-01-23 11:08] VITALS: BP 112/58
[2025-01-23] MEDS: TYLENOL 1000 MG PO (11:14)
--- NOTE | 2025-01-23 11:47 | PN.CDI ---
CDI
- -
CDI:
Physician Documentation Request
Admit Date: 01/22/25 17:15
Dear Doctor Byron,
01/23 cardiology progress note states 'Acute on chronic systolic heart failure secondary to ischemic cardiomyopathy'
01/22 signed chest xray states 'The lungs are clear, without evidence of lobar pneumonia, pleural effusion, pneumothorax, or decompensated congestive heart failure.'
Per MAR no diuretics given
No BNP
Please clarify which of the following accurately represents the acuity of the heart failure
Chronic
Acute on Chronic
____ Other
Use of terms such as suspected, likely, concern for, or probable (associated with a specific diagnosis that is being evaluated, monitored, or treated as if it exists) are acceptable and can be coded in the inpatient setting, when documented at the
time of discharge.
Thank you,
Ruth Kan RN, BSN
CDI Specialist
tiger text
Please use your independent medical judgment in providing your response.
--- NOTE | 2025-01-23 12:39 | PTCARENOTE ---
Pt seen by . Telemetry and IV device removed. Discharge instructions reviewed with pt and his son regarding activity and driving restrictions, wound care, medications and their possible side effects, pain management, reproting cares and
concerns and follow up appt's. Very good understanding verbalized. Pt escorted out via wheelchair and pt discharged to home.
== END 2025-01-23 12:10 | disposition home or self-care (01) | DRG 277 ==
LOC: IVU 17:15
PROVIDERS: ADMITTING PHYSICIAN Internal Medicine Cardiovascular Disease; FAMILY PHYSICIAN Family Medicine
PROC: 0JH608Z Insertion of Defibrillator Generator into Chest Subcutaneous Tissue and Fascia, Open Approach (ICD-10-PCS; 2025-01-22)
PROC: 02HK3KZ Insertion of Defibrillator Lead into Right Ventricle, Percutaneous Approach (ICD-10-PCS; 2025-01-22)
PROC: 4A023FZ Measurement of Cardiac Rhythm, Percutaneous Approach (ICD-10-PCS; 2025-01-22)
PROC: 4A0234Z Measurement of Cardiac Electrical Activity, Percutaneous Approach (ICD-10-PCS; 2025-01-22)
PROC: 4B02XTZ Measurement of Cardiac Defibrillator, External Approach (ICD-10-PCS; 2025-01-23)
DX: I47.20 Ventricular tachycardia, unspecified (principal); I50.22 Chronic systolic (congestive) heart failure; I25.5 Ischemic cardiomyopathy; I25.10 Atherosclerotic heart disease of native coronary artery without angina pectoris; I25.82 Chronic total occlusion of coronary artery; E78.5 Hyperlipidemia, unspecified; E66.01 Morbid (severe) obesity due to excess calories; Z68.37 Body mass index [BMI] 37.0-37.9, adult; Z95.1 Presence of aortocoronary bypass graft
CPT/HCPCS: 33249; 71045; 80053; 85027; 86803; 93005; 93620; C1722; C1730; C1777; C1892; C1894

== ENCOUNTER 2025-04-14 16:19 | Emergency (ER) | payer OTHER, SELFPAY ==
[2025-04-14 16:24] VITALS: BP 133/81
[2025-04-14 16:47] VITALS: BP 133/87
[2025-04-14 16:54] VITALS: BMI 36.6
[2025-04-14 16:59] LABS: Hematocrit 42.4 % (39.0-52.0); Hemoglobin 13.4 g/dL (13.0-18.0); Mean Corp Hgb Conc. 31.6 g/dL (33.0-37.0); Mean Corpuscular Volume 83.1 fL (80.0-94.0); Nucleated Red Blood Cells % 0 % (-); Platelet Count 184 10^3/uL (130-400); Red Cell Dist. Width 13.4 % (11.5-14.5)
[2025-04-14 17:00] VITALS: BP 110/86
[2025-04-14 17:20] LABS: ALT (SGPT) 20 U/L (0-50); AST (SGOT) 20 U/L (17-59); Albumin 4.2 g/dl (3.5-5.0); Alkaline Phosphatase 69 U/L (38-126); Blood Urea Nitrogen 18 mg/dl (9-20); Calcium 9.0 mg/dl (8.4-10.2); Carbon Dioxide 27 mmol/L (22-30); Chloride 104 mmol/L (98-107); Estimated Creatinine Clearance 103 ml/min; Glucose 110 mg/dl (70-99); Potassium 4.2 mmol/L (3.5-5.1); Sodium 136 mmol/L (135-145); Total Protein 6.4 g/dl (6.3-8.2); eGFR > 60.00
--- NOTE | 2025-04-14 17:21 | ED.GENMED ---
History of Present Illness
General
Chief Complaint: Chest Pain
Source: patient
Time Seen by Provider: 04/14/25 16:41
Nursing documentation reviewed up to this point in time: agreed with
History of Present Illness
History of Present Illness:
59 yr old male with Pmh of CABG, hypertension hyperlipidemia, ischemic CM, VT and syncope presents to the ER for evaluation. Last night 11 PM patient noticed a brief abnormality on his right chest. He describes this as 'feeling like a rib was
out.' He reports this was not pain. It lasted about a second. he had no associated SOB/n/v. He again had another episode at 7 am this morning which also lasted for about second time. He has been asymptomatic since. With episodes he had no
associated shortness of breath nausea vomiting diaphoresis. He denies any actual injury or shortness of breath.
Past History
Past History
ED Past Medical History: Asthma, HTN and Psychiatric (Anxiety/depression)
ED Past Surgical History: Appendectomy, Orthopedic (left hand surgery) and Other (Hernia repair)
Social History
Tobacco: Non-smoker
Alcohol: Occasional
Drug: None
Personal:
Living: with family (Resides with his teenage son)
Employment: Employed
Family History
Family History: Hypertension and Other
Phy Exam
General Physical Exam
General Presentation: no apparent distress
General age: appears stated age
General Skin: warm and dry
General Habitus: normal
General Mental: alert
General Hydration: appears well hydrated
Cardiovascular Exam
Cardiovascular Exam: regular rate/rhythm, no murmur and normal peripheral pulses
Pulmonary Exam
Pulmonary Exam: lungs clear and no respiratory distress
Neurological Exam
Neurological Exam: alert and oriented x3
Musculoskeletal Exam
Musculoskeletal Exam: full ROM
Skin Exam
Skin Exam: normal color and warm/dry
Psychiatric Exam
Psychiatric Exam: normal mood/affect
Scores
Heart Score for Chest Pain Patients
STEMI patient?: Not applicable
Course
Orders/Labs/Results
Orders:
Orders
04/14/25 16:20
Electrocardiogram (*1) Urgent
Reason for Study: Chest Pain
EKG- Treatment ONCE
04/14/25 16:42
IV Insert/Care/Rem.- Treatment PRN
04/14/25 16:52
Complete Blood Count/With Diff Urgent
Comprehensive Metabolic Panel Urgent
Troponin I Urgent
04/14/25 17:32
Chest [CR Chest - 2 Views ] Urgent
Comment:
Reason For Exam: right sided cp
04/14/25 18:04
Interrogate Pacemaker- Treatment ONCE
Abnormal Lab Results
04/14/25
16:52
MCH 26.3 L pg
(27.0-31.0)
MCHC 31.6 L g/dL
(33.0-37.0)
MPV 11.1 H fL
(7.4-10.4)
Absolute Monos (auto) 0.7 H 10^3/uL
(0.1-0.6)
Eosinophils % 6.8 H %
(0-6)
Glucose 110 H mg/dl
(70-99)
04/14/25 16:52
04/14/25 16:52
Vital Signs
Initial and Last Documented VS:
Initial Vital Signs
Temp Pulse Resp BP Pulse Ox
98 F 95 16 133/81 97
04/14/25 16:24 04/14/25 16:24 04/14/25 16:24 04/14/25 16:24 04/14/25 16:24
Last Documented Vital Signs
Temp Pulse Resp BP Pulse Ox
98 F 87 15 111/95 98
04/14/25 16:24 04/14/25 19:45 04/14/25 19:45 04/14/25 19:00 04/14/25 19:45
Snow Removing Supervisor consulted with Physician
Snow Removing Supervisor consulted with physician?: Yes
Name of Physician Consulted: Kaitlynn
MDM/Problems Addressed
MDM/Problems Addressed:
As documented patient is a 5-year-old male with significant cardiac history presented to the ER for evaluation. Patient had a brief what he describes as 1 second episode of right-sided chest discomfort at 11 PM last night and again at 7 AM this
morning. Each episode lasted about a second at a time. He describes as feeling as though' my rib was out.' He had no associated shortness breath nausea vomit diaphoresis. He has been asymptomatic here no acute distress EKG unremarkable.
Pacemaker interrogated and no recorded episodes. Patient is stable and well-appearing. cardiac troponin negative labs unremarkable. No acute findings on chest x-ray
*Radiology
Radiology exam reviewed: radiology read reviewed
*Pulse Oximetry
SaO2: 99
Oxygen Mode of Delivery: Room air
Patient hypoxic: no
*EKG
Interpretation: abnormal
Comparison EKG: no changes
Heart Rate: 81
Rate: normal
Rhythm: sinus and PVC's
Ischemia: non-specific ST changes
*Critical Care Note
Total Time (30-74mins, 75-104mins- exclusive of procedures): Not Applicable
Data Reviewed
Review of Other/Old Records Reveals: Labs, Operative Reports and Discharge Summary
ED Attending Note
-
Portions of this chart may have been created with voice recognition software.� Occasional wrong word or��sound alike� substitutions may have occurred due to the inherent limitations of voice recognition software.
Discharge Plan
Departure
Patient Disposition: Home (Routine Discharge)
Date of Disposition: 04/14/25
Time of Disposition: 19:54
Patient with high blood pressure during this ER visit?: Yes
Condition: Fair
Covid-19: Not Applicable
Discharge Problem:
Chest pain
Instructions: Chest Pain CBC Follow Up, BLOOD PRESSURE
Prescriptions:
No Action
diphenhydramine HCl [Benadryl] 25 mg Capsule
25 mg PO HSPRN PRN (Reason: ITCHING)
acetaminophen 500 mg Tablet
1,000 mg PO Q6HPRN PRN (Reason: MILD PAIN)
atorvastatin 80 mg Tablet
80 mg PO QPM Qty: 60 1RF
amlodipine 2.5 mg Tablet
2.5 mg PO DAILY Qty: 90 3RF
clopidogrel 75 mg Tablet
75 mg PO DAILY Qty: 90 3RF
pantoprazole 40 mg Tablet,Delayed Release (Dr/Ec)
40 mg PO DAILY Qty: 90 3RF
aspirin 81 mg Tablet,Chewable
81 mg PO DAILY Qty: 0 0RF
metoprolol succinate 25 mg Tablet Extended Release 24 Hr
25 mg PO BID Qty: 60 1RF
oxycodone 5 mg Tablet
2.5 mg PO Q4HPRN PRN (Reason: severe pain) Qty: 15 0RF
lisinopril 5 mg Tablet
5 mg PO HS
ezetimibe 10 mg Tablet
10 mg PO DAILY
Referrals:
Ulysses Carver MD [Active, Cardiology]
Anthony Mcqueen MD [Family Provider, Family Practice]
Activity Restrictions/Additional Instructions:
As discussed you were placed on the chest pain hotline which means you should receive a phone call from the office in the next 1 to 2 days; if you do not please call the office to schedule an appointment as soon as possible. Return to the if any
worsening of symptoms
Interventions
Interventions:
*Risk Screen - Suicide Last Done: 04/14/25 16:26
*Neglect/Abuse Screening Last Done: 04/14/25 16:26
ED- Cardiac Assessment Last Done: 04/14/25 16:54
Discharge Date and Time
Print Language: KHMER
[2025-04-14 17:25] LABS: Troponin I < 0.012 ng/ml
[2025-04-14 18:39] VITALS: BP 121/78
[2025-04-14 19:00] VITALS: BP 111/95
[2025-04-14 20:00] VITALS: BP 121/94
== END 2025-04-14 20:27 | disposition home or self-care (01) ==
LOC: EMR 16:19
PROVIDERS: Nurse Practitioner; EMERGENCY PHYSICIAN Emergency Medicine; FAMILY PHYSICIAN Family Medicine
DX: R07.9 Chest pain, unspecified (principal); Z45.018 Encounter for adjustment and management of other part of cardiac pacemaker; I10 Essential (primary) hypertension; J45.909 Unspecified asthma, uncomplicated; Z95.1 Presence of aortocoronary bypass graft; Z90.49 Acquired absence of other specified parts of digestive tract
CPT/HCPCS: 93288; 99285; 71046; 80053; 84484; 85025; 93005